=== PATIENT | male | born 1955 | race Caucasian/White ===

== ENCOUNTER 2017-04-14 13:17 | Inpatient (IN) | payer MEDICAID, OTHER ==
[~2017-04-14] VITALS: Ht 188 cm; Wt 69.4 kg
[2017-04-14] VITALS (7 sets, daily range): BP systolic 118–142; BP diastolic 51–77; PULSE 74–115; RESP 16–22; TEMP 96.9–100.6; O2SAT 95–98
[~2017-04-14 13:17] MED LIST: DIPH25 PO; FLEX10TA PO; SERO200T2 PO
[2017-04-14] MEDS ORDERED: SODIUM CHLORIDE 0.9% FLUSH 10 ML FLUSH IVF PRN (14:00)
[2017-04-14] MEDS ORDERED: ONDANSETRON HCL 4 MG/2 ML VIAL IV PUSH ONE (14:00)
[2017-04-14] MEDS ORDERED: SODIUM CHLOR 0.9% 1000 ML INJ 1,000 ML IV ONE ×2 (14:00→16:00)
[2017-04-14] MEDS ORDERED: KETOROLAC TROMETHAMINE 30 MG/ML (IVP) VIAL IV PUSH ONE (14:15)
[2017-04-14 15:17] LABS: AUTOMATED NEUTROPHIL # 15.8 TH/MM3 (1.8-7.7); BASOPHIL # 0.1 TH/MM3 (0-0.2); BASOPHIL % 0.4 % (0.0-2.0); EOSINOPHIL % 0.1 % (0.0-4.0); HEMATOCRIT 40.1 % (39.0-51.0); HEMO FLAGS DIFF FINAL; LYMPH % 3.7 % (9.0-44.0); LYMPHOCYTE # 0.7 TH/MM3 (1.0-4.8); MEAN CELL VOLUME 95.8 FL (80.0-100.0); MEAN CORPUSCULAR HEMOGLOBIN 30.9 PG (27.0-34.0); MEAN CORPUSCULAR HGB CONC 32.2 % (32.0-36.0); MONO % 8.2 % (0.0-8.0); NEUT % 87.6 % (16.0-70.0); PLATELET COUNT 253 TH/MM3 (150-450); RED BLOOD COUNT 4.19 MIL/MM3 (4.50-5.90); RED CELL DISTRIBUTION WIDTH 13.1 % (11.6-17.2)
--- NOTE | 2017-04-14 15:17 | PD ---
HPI Chief Complaint: Flank/Kidney Pain Time Seen by Provider: 14:00 Travel History International Travel<30 days: No Contact w/Intl Traveler<30days: No Traveled to known affect area: No History of Present Illness HPI Patient is a 7-year-old male presenting to emergency for evaluation of left flank pain. Patient states it started about 24 hours ago, he states the pain is a 9 out of 10, and radiates around to his abdomen. He reports dysuria and a history of kidney stones. Patient denies any vomiting but states he's been nauseated. He has not taken anything to alleviate the pain, no exacerbating factors. PFSH Past Medical History Arthritis: No Asthma: Yes (IN CHILDHOOD) Bipolar Disorder: Yes Anxiety: Yes Depression: Yes Heart Rhythm Problems: No Cancer: No Cardiovascular Problems: No High Cholesterol: No Chest Pain: Yes Congestive Heart Failure: No COPD: No Cerebrovascular Accident: No Diabetes: No Diminished Hearing: No Endocrine: No GERD: Yes Genitourinary: No Headaches: Yes Hepatitis: No Hiatal Hernia: No Immune Disorder: No Kidney Stones: Yes Medical other: Yes (MARFAN'S SYNDROME) Neurologic: Yes (NUMBNESS AND TINGLING IN FEET) Reproductive: No Immunizations Current: No Migraines: Yes Renal Failure: Yes Seizures: No Sleep Apnea: No Thyroid Disease: No Ulcer: Yes Tetanus Vaccination: > 5 Years Influenza Vaccination: No Past Surgical History Abdominal Surgery: Yes (BOWEL RESECTION 18 YEARS AGO) AICD: No Arteriovenous Shunt: No Cardiac Surgery: No Ear Surgery: No Endocrine Surgery: No Eye Surgery: No Genitourinary Surgery: Yes (URETERAL STENTS, ESWL ) Gynecologic Surgery: No Insulin Pump: No Joint Replacement: No Neurologic Surgery: Yes (C7 FUSION) Oral Surgery: Yes (ALL TEETH REMOVED) Pacemaker: No Thoracic Surgery: No Tonsillectomy: Yes Social History Alcohol Use: No Tobacco Use: Yes (/2 PPD) Substance Use: No Allergies-Medications (Allergen,Severity, Reaction): Coded Allergies: Cipro (Verified Allergy, Severe, 04/14/17) Penicillin (Unverified Allergy, Severe, muscle weakness, 04/14/17) Demerol (Verified Adverse Reaction, Severe, Hallucinations, 04/14/17) Reported Meds & Prescriptions Reported Meds & Active Scripts Active No Active Prescriptions or Reported Medications Review of Systems Except as stated in HPI: all other systems reviewed are Neg HENT: No: Headaches Cardiovascular: No: Chest Pain or Discomfort Respiratory: No: Shortness of Breath Gastrointestinal: Positive: Nausea Genitourinary: Positive: Dysuria, Flank Pain Physical Exam Narrative GENERAL: Thin, well-developed, alert male. Appears uncomfortable, in no acute distress. SKIN: Warm and dry. HEAD: Atraumatic. Normocephalic. EYES: Pupils equal and round. No scleral icterus. No injection or drainage. ENT: No nasal bleeding or discharge. Mucous membranes pink and moist. NECK: Trachea midline. No JVD. CARDIOVASCULAR: Tachycardia,, no murmur noted. RESPIRATORY: No accessory muscle use. Clear to auscultation. Breath sounds equal bilaterally. GASTROINTESTINAL: Abdomen soft, left flank tenderness, nondistended. Hepatic and splenic margins not palpable. Positive bowel sounds, positive CVAT on the left MUSCULOSKELETAL: Extremities without clubbing, cyanosis, or edema. No obvious deformities. NEUROLOGICAL: Awake and alert. No obvious cranial nerve deficits. Motor grossly within normal limits. Five out of 5 muscle strength in the arms and legs. Normal speech. PSYCHIATRIC: Appropriate mood and affect; insight and judgment normal. Data Data Last Documented VS Vital Signs Date Time Temp Pulse Resp B/P Pulse Ox O2 Delivery O2 Flow Rate FiO2 04/14/17 16:06 20 04/14/17 16:01 100.1 100 142/67 98 Room Air Orders Complete Blood Count With Diff (04/14/17 13:59) Comprehensive Metabolic Panel (04/14/17 13:59) Ua Includes Microscopic (04/14/17 13:59) Iv Access Insert/Monitor (04/14/17 13:59) Sodium Chloride 0.9% Flush (Ns Flush) (04/14/17 14:00) Ondansetron Inj (Zofran Inj) (04/14/17 14:00) Sodium Chlor 0.9% 1000 Ml Inj (Ns 1000 M (04/14/17 14:00) Ketorolac Inj (Toradol Inj) (04/14/17 14:15) Ct Abd/Pel W/O Iv Contrast (04/14/17 ) Morphine Inj (Morphine Inj) (04/14/17 15:45) Ceftriaxone Inj (Rocephin Inj) (04/14/17 15:45) Sodium Chlor 0.9% 1000 Ml Inj (Ns 1000 M (04/14/17 16:00) Acetaminophen (Tylenol) (04/14/17 16:00) Sodium Chlor 0.9% 1000 Ml Inj (Ns 1000 M (04/14/17 18:15) Lactic Acid Sepsis Protocol (04/14/17 18:02) Blood Culture (04/14/17 18:02) Lactic Acid (04/14/17 18:03) Admit Order (Ed Use Only) (04/14/17 18:03) Labs Laboratory Tests Test 04/14/17 14:55 White Blood Count 18.0 TH/MM3 Red Blood Count 4.19 MIL/MM3 Hemoglobin 12.9 GM/DL Hematocrit 40.1 % Mean Corpuscular Volume 95.8 FL Mean Corpuscular Hemoglobin 30.9 PG Mean Corpuscular Hemoglobin 32.2 % Concent Red Cell Distribution Width 13.1 % Platelet Count 253 TH/MM3 Mean Platelet Volume 8.4 FL Neutrophils (%) (Auto) 87.6 % Lymphocytes (%) (Auto) 3.7 % Monocytes (%) (Auto) 8.2 % Eosinophils (%) (Auto) 0.1 % Basophils (%) (Auto) 0.4 % Neutrophils # (Auto) 15.8 TH/MM3 Lymphocytes # (Auto) 0.7 TH/MM3 Monocytes # (Auto) 1.5 TH/MM3 Eosinophils # (Auto) 0.0 TH/MM3 Basophils # (Auto) 0.1 TH/MM3 CBC Comment DIFF FINAL Differential Comment Urine Color YELLOW Urine Turbidity CLOUDY Urine pH 6.0 Urine Specific [place] 1.035 Urine Protein 300 mg/dL Urine Glucose (UA) NEG mg/dL Urine Ketones TRACE mg/dL Urine Occult Blood LARGE Urine Nitrite POS Urine Bilirubin NEG Urine Urobilinogen LESS THAN 2.0 MG/DL Urine Leukocyte Esterase LARGE Urine RBC /hpf Urine WBC /hpf Urine WBC Clumps OCC Urine Bacteria FEW /hpf Microscopic Urinalysis Comment Sodium Level 133 MEQ/L Potassium Level 4.2 MEQ/L Chloride Level 101 MEQ/L Carbon Dioxide Level 21.0 MEQ/L Anion Gap 11 MEQ/L Blood Urea Nitrogen 21 MG/DL Creatinine 2.01 MG/DL Estimat Glomerular Filtration 34 ML/MIN Rate Random Glucose 83 MG/DL Calcium Level 8.9 MG/DL Total Bilirubin 0.6 MG/DL Aspartate Amino Transf 17 U/L (AST/SGOT) Alanine Aminotransferase 12 U/L (ALT/SGPT) Alkaline Phosphatase 56 U/L Total Protein 7.4 GM/DL Albumin 3.6 GM/DL MDM Medical Decision Making Medical Screen Exam Complete: Yes Emergency Medical Condition: Yes Medical Record Reviewed: Yes Interpretation(s) Laboratory Tests Test 04/14/17 14:55 White Blood Count 18.0 TH/MM3 Red Blood Count 4.19 MIL/MM3 Hemoglobin 12.9 GM/DL Hematocrit 40.1 % Mean Corpuscular Volume 95.8 FL Mean Corpuscular Hemoglobin 30.9 PG Mean Corpuscular Hemoglobin 32.2 % Concent Red Cell Distribution Width 13.1 % Platelet Count 253 TH/MM3 Mean Platelet Volume 8.4 FL Neutrophils (%) (Auto) 87.6 % Lymphocytes (%) (Auto) 3.7 % Monocytes (%) (Auto) 8.2 % Eosinophils (%) (Auto) 0.1 % Basophils (%) (Auto) 0.4 % Neutrophils # (Auto) 15.8 TH/MM3 Lymphocytes # (Auto) 0.7 TH/MM3 Monocytes # (Auto) 1.5 TH/MM3 Eosinophils # (Auto) 0.0 TH/MM3 Basophils # (Auto) 0.1 TH/MM3 CBC Comment DIFF FINAL Differential Comment Urine Color YELLOW Urine Turbidity CLOUDY Urine pH 6.0 Urine Specific [place] 1.035 Urine Protein 300 mg/dL Urine Glucose (UA) NEG mg/dL Urine Ketones TRACE mg/dL Urine Occult Blood LARGE Urine Nitrite POS Urine Bilirubin NEG Urine Urobilinogen LESS THAN 2.0 MG/DL Urine Leukocyte Esterase LARGE Urine RBC /hpf Urine WBC /hpf Urine WBC Clumps OCC Urine Bacteria FEW /hpf Microscopic Urinalysis Comment Sodium Level 133 MEQ/L Potassium Level 4.2 MEQ/L Chloride Level 101 MEQ/L Carbon Dioxide Level 21.0 MEQ/L Anion Gap 11 MEQ/L Blood Urea Nitrogen 21 MG/DL Creatinine 2.01 MG/DL Estimat Glomerular Filtration 34 ML/MIN Rate Random Glucose 83 MG/DL Calcium Level 8.9 MG/DL Total Bilirubin 0.6 MG/DL Aspartate Amino Transf 17 U/L (AST/SGOT) Alanine Aminotransferase 12 U/L (ALT/SGPT) Alkaline Phosphatase 56 U/L Total Protein 7.4 GM/DL Albumin 3.6 GM/DL Vital Signs Date Time Temp Pulse Resp B/P Pulse Ox O2 Delivery O2 Flow Rate FiO2 7/14/17 13:26 100.6 115 20 128/63 98 Room Air 04/14/17 13:24 98.0 109 16 131/77 96 Differential Diagnosis UTI versus kidney stone versus pyelonephritis versus musculoskeletal pain versus diverticulitis versus obstruction versus other Narrative Course Patient is a 61-year-old male that presented to the emergency room evaluation of left flank pain and dysuria for one day. Patient was mildly tachycardic with a low-grade temp on arrival. Labs and imaging ordered and pending. CBC with a white count of 18 with left shift. Chemistry with elevated BUN and creatinine, creatinine is slightly higher than previous values recorded. Urinalysis shows nitrate positive urinary tract infection. Patient given IV fluids, Rocephin, Toradol, Zofran. The CT scan of the abdomen and pelvis pending Ct scan read by radiologist shows atrophy of the left kidney with hydronephrosis and hydroureter secondary to tandem stones w/i the left ureter measuring 3 and 4 mm. right non obstructing renal calculi, suspected high grade stenosis of the left common femoral artery. Pt admitted, Dr. Taylor accepted admit. Lactic acid ordered. Pt responded to IVF resuscitation. Pt informed of care plan, he is agreeable. He reports feeling better after acetaminophen and pain medication. Sepsis Criteria SIRS Criteria (2 or more): Heart rate over 90, WBC > 36133, < 4000 or > 10% bands Sepsis Criteria (SIRS+source): Infect source susp/known Severe Sepsis (+one): Organ Dysfunction, Acute Oliguria/Renal Failure Diagnosis Primary Impression: Sepsis Qualified Code: A41.9 - Sepsis, due to unspecified organism Additional Impression: Hydronephrosis Qualified Code: N13.2 - Hydronephrosis with urinary obstruction due to renal calculus Admitting Information Admitting Physician Requests: Admit Scripts No Active Prescriptions or Reported Meds Condition: Stable Basia Casey Apr 14, 2017 15:17
[2017-04-14 15:33] LABS: BACTERIA, URINE FEW /hpf; BLOOD, URINE LARGE (NEG); GLUCOSE,URINE NEG (NEG); KETONE, URINE TRACE mg/dL (NEG); URINE COLOR YELLOW (YELLW/STRAW)
[2017-04-14 15:39] LABS: ANION GAP 11 MEQ/L (5-15); AST (GOT) 17 U/L (15-37); BLOOD UREA NITROGEN 21 MG/DL (7-18); CHLORIDE 101 MEQ/L (98-107); GLOMERULAR FILTRATION RATE 34 ML/MIN (>89); POTASSIUM 4.2 MEQ/L (3.5-5.1); SODIUM (NA) 133 MEQ/L (136-145)
[2017-04-14 15:40] LABS: NITRITE,URINE POS (NEG)
[2017-04-14 15:43] LABS: ALKALINE PHOSPHATASE 56 U/L (45-117); ALT (GPT) 12 U/L (12-78); TOTAL BILIRUBIN ADULT 0.6 MG/DL (0.2-1.0)
[2017-04-14] MEDS ORDERED: cefTRIAXone INJ 2,000 MG in SODIUM CHLORIDE 0.9% INJ 100 ML IV ONE (15:45)
[2017-04-14] MEDS ORDERED: MORPHINE SULFATE 8 MG/ML INJ IV PUSH ONE (15:45)
[2017-04-14] MEDS ORDERED: ACETAMINOPHEN 325 MG TAB PO ONE (16:00)
--- NOTE | 2017-04-14 17:34 | RADRPT ---
EXAM DATE/TIME: 04/14/2017 16:55 [facility] COMPARISON: CT ABDOMEN & PELVIS W/O CONTRAST, December 20, 2012, 19:14. INDICATIONS : Left flank pain along with painful urination for one day. ORAL CONTRAST: No oral contrast ingested. RADIATION DOSE: 9.66 CTDIvol (mGy) MEDICAL HISTORY : Renal failure, chronic. Renal calculi. SURGICAL HISTORY : Colostomy. ENCOUNTER: Initial ACUITY: 1 day PAIN SCALE: 8/10 LOCATION: Left flank TECHNIQUE: Volumetric scanning of the abdomen and pelvis was performed. Using automated exposure control and ad justment of the mA and/or kV according to patient size, radiation dose was kept as low as reasonably achievable to obtain optimal diagnostic quality images. DICOM format image data is available electro nically for review and comparison. FINDINGS: LOWER LUNGS: Linear atelectasis within the right lung base. Left lung base is clear. Emphysematous changes noted. LIVER: Homogeneous density without lesion. There is no dilation of the biliary tree. No calcified gallston es. SPLEEN: Normal size without lesion. PANCREAS: Within normal limits. KIDNEYS: The left kidney is atrophic. Hydronephrosis and hydroureter is seen on the left. This may be chronic in nature. 2 left-sided ureteral stones noted. Distally this measures 4 mm and is just distal to the crossing of the iliac vessels. Proximally the stone measures 3 mm and is just inferior to the UPJ. Nu merous 2-5 mm renal stones are seen involving the right kidney. No hydronephrosis or hydroureter on t hat side. No perinephric fluid collections. ADRENAL GLANDS: Within normal limits. VASCULAR: Diffuse atherosclerotic plaque throughout the aorta and inflow vessels. A high grade stenosis is susp ected involving the left common femoral artery. BOWEL/MESENTERY: The stomach, small bowel, and colon demonstrate no acute abnormality. There is no free intraperitone al air or fluid. ABDOMINAL WALL: Within normal limits. RETROPERITONEUM: There is no lymphadenopathy. BLADDER: Mild circumferential wall thickening is long-term stable. No discrete mass. No dilatation of the urin izzy bladder. REPRODUCTIVE: Within normal limits. INGUINAL: A right inguinal hernia is seen containing loops of small bowel. No obstruction or incarceration. MUSCULOSKELETAL: Scoliotic and degenerative spine. CONCLUSION: 1. Atrophy of the left kidney with hydronephrosis and hydroureter secondary to tandem stones within t he left ureter measuring 3 mm and 4 mm respectively. 2. Numerous nonobstructing right renal calculi. 3. Right inguinal hernia containing small bowel. 4. Pronounced calcified atherosclerotic plaque with a suspected high-grade stenosis of the left commo n femoral artery. Jeremiah Nick Jr., MD on April 14, 2017 at 17:24 Board Certified Radiologist. This report was verified electronically.
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
[2017-04-14] MEDS ORDERED: NALOXONE HCL 0.4 MG/ML AMP IV PRN ×2 (18:30→19:00)
[2017-04-14] MEDS ORDERED: BISACODYL 10 MG SUPP RECTAL PRN (18:30)
[2017-04-14] MEDS ORDERED: SENNOSIDES 8.6 MG TAB PO PRN (18:30)
[2017-04-14] MEDS ORDERED: ONDANSETRON HCL 4 MG/2 ML VIAL IVP PRN (18:30)
[2017-04-14] MEDS ORDERED: ACETAMINOPHEN 325 MG TAB PO PRN ×2 (18:30→19:00)
[2017-04-14] MEDS ORDERED: MAGNESIUM HYDROXIDE SUSP 30 ML CUP PO PRN (18:30)
[2017-04-14] MEDS ORDERED: LACTULOSE SYRUP 20 GM/30 ML CUP PO PRN (18:30)
[2017-04-14] MEDS ORDERED: oxyCODONE/ACETAMINOPHEN 5 MG/325 MG TAB PO PRN (19:00)
[2017-04-14] MEDS ORDERED: PILL SPLITTER OTHER PRN (19:15)
[2017-04-14] MEDS: HEPARIN SODIUM - SQ 10,000 UNITS/ML VIAL SQ SCH (20:00)
[2017-04-14] MEDS: PANTOPRAZOLE SOD 40 MG DELAYED RELEASE TAB PO SCH (20:51)
[2017-04-14] MEDS: HYDROmorphone HCL 2 MG TAB PO PRN (20:51)
[2017-04-14] MEDS: DOCUSATE SODIUM 50 MG/SENNA 8.6 MG TAB PO SCH (20:51)
[2017-04-14] MEDS: SODIUM CHLOR 0.9% 1000 ML INJ 1,000 ML IV SCH (20:51)
[2017-04-15 00:18] VITALS: BP 116/58; PULSE 83; RESP 18; TEMP 98.6; O2SAT 93
[2017-04-15 04:20] VITALS: BP 115/58; PULSE 85; RESP 16; TEMP 99.3; O2SAT 96
[2017-04-15] MEDS: SODIUM CHLOR 0.9% 1000 ML INJ 1,000 ML IV SCH ×4 (04:32→21:26)
[2017-04-15] MEDS: HYDROmorphone HCL 2 MG TAB PO PRN ×3 (05:16→23:46)
[2017-04-15 08:00] VITALS: BP 115/58; PULSE 90; RESP 17; TEMP 99.3; O2SAT 94
[2017-04-15] MEDS: HEPARIN SODIUM - SQ 10,000 UNITS/ML VIAL SQ SCH ×2 (08:00→20:00)
[2017-04-15] MEDS: PANTOPRAZOLE SOD 40 MG DELAYED RELEASE TAB PO SCH (08:29)
[2017-04-15] MEDS: DOCUSATE SODIUM 50 MG/SENNA 8.6 MG TAB PO SCH ×2 (08:29→21:25)
--- NOTE | 2017-04-15 09:16 | HHI.PR ---
Subjective Remarks f/u UTI afebrile, still with left flank pain, dysuria, frequency and dark urine, no diarrhea, less pain, better with narcotics. Objective Vitals Vital Signs Date Time Temp Pulse Resp B/P Pulse Ox O2 Delivery O2 Flow Rate FiO2 04/15/17 08:00 99.3 90 17 115/58 94 04/15/17 04:20 99.3 85 16 115/58 96 04/15/17 00:18 98.6 83 18 116/58 93 04/14/17 21:56 96.9 85 16 131/70 95 04/14/17 20:52 78 18 118/73 98 Room Air 04/14/17 19:12 98.1 86 18 120/68 95 Room Air 04/14/17 18:29 97.9 74 22 137/51 98 Room Air 04/14/17 16:06 20 04/14/17 16:01 20 04/14/17 16:01 100.1 100 20 142/67 98 Room Air 04/14/17 13:26 100.6 115 20 128/63 98 Room Air 04/14/17 13:24 98.0 109 16 131/77 96 I/O 04/14/17 04/14/17 04/14/17 04/15/17 04/15/17 04/15/17 07:00 15:00 23:00 07:00 15:00 23:00 Intake Total 1200 ml 1480 ml Output Total 380 ml Balance 1200 ml 1100 ml Intake Oral 280 ml IV Total 1200 ml 1200 ml Output Urine Total 380 ml Result Diagram: 04/14/17 1455 04/14/17 1455 Objective Remarks Not in distress, well-nourished, looks stated age PERRL, pink conjunctiva without injection, anicteric Normal rate and regular rhythm, no murmurs gallops or rubs appreciated. Clear to auscultation and symmetric bilaterally, normal respiratory effort. Normal bowel sounds, soft, non-tender, nondistended, no guarding. (+) CVA tenderness Extremities without clubbing, cyanosis, or edema. No rash of generalized distribution. Skin is warm and dry. AAO x3, no cranial nerve deficits, moves all 4 extremities, no focal neurologic deficits A/P Problem List: (1) Sepsis ICD Code: A41.9 Status: Acute (2) Acute kidney failure ICD Code: N17.9 Status: Acute (3) Hydronephrosis ICD Code: N13.30 Status: Acute Assessment and Plan Patient is a 61-year-old male with primary medical history of Marfan syndrome, neuropathy, kidney stones, urethral stent placements who came into the hospital for evaluation of left flank pain. Sepsis secondary to pyelonephritis- CT abdomen and pelvis showed atrophic left kidney with hydronephrosis and hydroureter with ureterolithiasis about 3 mm. There is also numerous nonobstructing right renal calculi. Urology consulted, awaiting input. Lactic acid is normal, follow-up urine culture and blood culture. Continue ceftriaxone, IVF at 1 50 cc per hour. Lab work for today pending, recheck CBC and BMP tomorrow. Acute kidney failure - Based on review of records baseline most probably 1.4-1.6. Admitted four years ago with kidney failure [employer] 12.76, continue IVF, will consult nephrology for improvement, awaiting BMP today. DVT prop heparin Discharge Planning Discharged Monday or Monday Problem Qualifiers (1) Sepsis: Qualified Code: A41.9 - Sepsis, due to unspecified organism (2) Hydronephrosis: Qualified Code: N13.2 - Hydronephrosis with urinary obstruction due to renal calculus Lita Taylor MD Apr 15, 2017 09:16
[2017-04-15 12:00] VITALS: BP 130/106; PULSE 105; RESP 19; TEMP 97.9; O2SAT 95
[2017-04-15 12:26] LABS: AUTOMATED NEUTROPHIL # 10.7 TH/MM3 (1.8-7.7); BASOPHIL % 0.3 % (0.0-2.0); EOSINOPHIL # 0.1 TH/MM3 (0-0.4); EOSINOPHIL % 0.5 % (0.0-4.0); HEMATOCRIT 30.3 % (39.0-51.0); HEMO FLAGS DIFF FINAL; LYMPH % 3.5 % (9.0-44.0); LYMPHOCYTE # 0.4 TH/MM3 (1.0-4.8); MEAN CELL VOLUME 95.8 FL (80.0-100.0); MEAN CORPUSCULAR HEMOGLOBIN 32.3 PG (27.0-34.0); MEAN CORPUSCULAR HGB CONC 33.8 % (32.0-36.0); MONO % 7.5 % (0.0-8.0); NEUT % 88.2 % (16.0-70.0); PLATELET COUNT 185 TH/MM3 (150-450); RED BLOOD COUNT 3.16 MIL/MM3 (4.50-5.90); RED CELL DISTRIBUTION WIDTH 12.9 % (11.6-17.2); WHITE BLOOD COUNT 12.1 TH/MM3 (4.0-11.0)
[2017-04-15 13:01] LABS: ALKALINE PHOSPHATASE 48 U/L (45-117); ALT (GPT) 11 U/L (12-78); ANION GAP 10 MEQ/L (5-15); AST (GOT) 16 U/L (15-37); BICARBONATE 22.5 MEQ/L (21.0-32.0); BLOOD UREA NITROGEN 23 MG/DL (7-18); CHLORIDE 105 MEQ/L (98-107); GLOMERULAR FILTRATION RATE 37 ML/MIN (>89); SODIUM (NA) 137 MEQ/L (136-145); TOTAL BILIRUBIN ADULT 0.3 MG/DL (0.2-1.0)
[2017-04-15 16:00] VITALS: BP 115/60; PULSE 85; RESP 17; TEMP 100; O2SAT 94
[2017-04-15] MEDS: TAMSULOSIN HCL 0.4 MG CAP PO SCH (16:07)
[2017-04-15] MEDS: cefTRIAXone INJ 2,000 MG in SODIUM CHLORIDE 0.9% INJ 100 ML IV SCH (16:18)
--- NOTE | 2017-04-15 16:29 | MB ---
cc: EHSAN CARRASCO MD DATE OF CONSULTATION 04/15/2017 REASON FOR CONSULTATION 1. Left flank pain. 2. Left ureteral calculi. 3. Right renal calculi. 4. Urinary tract infection. HISTORY OF PRESENT ILLNESS The patient is a 61-year-old male with a longstanding history of kidney stones as well as history of Marfan syndrome who came to the hospital with acute onset of 10/10 left flank pain, sharp and stabbing in nature. It was worsened with movement and breathing. He felt like he had fevers and chills. He also had an episode of nausea but no vomiting. He states that this pain was similar to his kidney stone pain in the past. He also had dysuria and frequency. He had CT of abdomen and pelvis without contrast performed and was found to have an atrophic left kidney with mild hydroureter nephrosis with two separate 3 and 4 mm stones as well as multiple nonobstructing right renal calculi. He was also found to have a white count 18,000, creatinine of over 2 in which his baseline is around 1.6. He was subsequently admitted and started on antibiotics. Urology was consulted. Currently, the patient is feeling better. His pain is 3/10, however, he did receive IV Dilaudid which helped with the pain. He continues to have dysuria and frequency but denies any hematuria. He last saw Dr. Ibarra he thinks about 3 years ago. He thinks he has passed stones in the past. He has had surgery with laser lithotripsy and stents in the past but none within the last 3 years. Denies family history of genitourinary malignancies or family history of kidney stones. REVIEW OF SYSTEMS See HPI otherwise all systems reviewed are otherwise are negative. PAST MEDICAL HISTORY Positive for Marfan syndrome, GERD, kidney stones, anxiety, depression, chronic kidney disease, neuropathy. PAST SURGICAL HISTORY He has had a bowel resection, tonsillectomy, cystoscopy with laser lithotripsy and stent placements, C7 fusion. ALLERGIES CIPRO, PENICILLIN, DEMEROL. MEDICATIONS He denies any active home medications. FAMILY HISTORY Denies genitourinary malignancies. Some heart disease. SOCIAL HISTORY History of alcohol abuse but he quit 25 years ago. He has a 20-year pack per day smoker but quit 6 years ago. Has used marijuana in the past. PHYSICAL EXAMINATION VITAL SIGNS: Temperature 97.9, pulse 105, respiratory rate 19, blood pressure 131/69, sat 97% on room air. GENERAL: He is alert and oriented x3. No apparent distress, pleasant cooperative gentleman, appears his stated. HEENT: Head is normocephalic, atraumatic. NECK: Supple. Trachea is midline. SKIN: No ulcers or rashes. Mucous membranes pink and moist. LUNGS: Clear to auscultation bilaterally. No wheezes, rales or rhonchi. HEART: Regular rhythm. No murmurs, gallops, rubs. ABDOMEN: Soft, nontender, nondistended. Positive bowel sounds. GENITOURINARY: No CVA tenderness bilaterally. Penis is circumcised. Testes are descended bilaterally, normal size and consistent. RECTAL EXAMINATION: Not indicated at this time. EXTREMITIES: Nontender. No clubbing, cyanosis or edema. NEUROLOGICAL: Cranial nerves II-XII intact. Strength 5/5 in all four extremities. PSYCH: Normal affect. LABORATORY DATA White count 12.1, hemoglobin 10.2, hematocrit 30.3, platelet count 185, sodium 137, potassium 4.0, chloride 105, bicarb 22.5, BUN 23, creatinine 1.85, lactic acid 1.7. His urine was positive nitrate, large leukocyte esterase and large blood. Cultures currently pending. IMAGING STUDIES CT abdomen and pelvis without contrast images reviewed, agree with radiologist's report. The patient has what appears to be a left atrophic kidney with chronic left hydroureter nephrosis with two small 3 mm stones in the ureter. The patient has multiple nonobstructing right renal stones. Also has a right inguinal hernia. ASSESSMENT The patient is a 61-year-old male with history of kidney stones, Marfan syndrome who was admitted with left flank pain and was found to have two stones in his distal ureter, 3 mm in size as well as urinary tract infection. PLAN 1. The patient is currently improving. Will recommend trial passage at this time. Will start the patient on Flomax 0.4 milligrams daily. Have him strain his urine and adjust his pain medication, add Percocet to his pain regimen. 2. It appears he does have atrophic left kidney due to thinning of the cortex, appears some of the hydronephrosis is likely chronic in nature. He had a Lasix renogram back in 2010 which showed only 15% function of that left kidney. I suspect that over the past 6 years that kidney function has continued to worsen. Recommend repeating a BMP in the morning to follow his kidney function as well as KUB but as long as his pain remains controlled with oral pain medication and his clinical picture does not worsen he can then be discharged home and follow up with Dr. Ibarra as an outpatient. Ehsan Carrasco MD EMBecca/MAAME /2:37 PM /4:04 PM
[2017-04-15] MEDS: oxyCODONE/ACETAMINOPHEN 10 MG/325 MG TAB PO PRN (19:26)
[2017-04-15 20:00] VITALS: BP 128/63; PULSE 87; RESP 20; TEMP 97.1; O2SAT 95
[2017-04-16] VITALS (8 sets, daily range): BP systolic 104–147; BP diastolic 54–77; PULSE 77–89; RESP 18–20; TEMP 96.7–99.4; O2SAT 93–98
[2017-04-16] MEDS: oxyCODONE/ACETAMINOPHEN 10 MG/325 MG TAB PO PRN (04:44)
[2017-04-16] MEDS: SODIUM CHLOR 0.9% 1000 ML INJ 1,000 ML IV SCH ×4 (04:45→21:10)
[2017-04-16 06:04] LABS: BICARBONATE 20.2 MEQ/L (21.0-32.0)
--- NOTE | 2017-04-16 06:36 | RADRPT ---
EXAM DATE/TIME: 04/16/2017 06:17 [facility] COMPARISON: CT ABDOMEN & PELVIS W/O CONTRAST, April 14, 2017, 16:55. INDICATIONS : Evaluate for renal calculi. MEDICAL HISTORY : Renal failure, chronic. SURGICAL HISTORY : Colostomy. ENCOUNTER: Subsequent ACUITY: 3 days PAIN SCORE: 7/10 LOCATION: Bilateral chest FINDINGS: Moderate dextroscoliosis of the lumbar spine with rotatory component. Nonobstructive bowel gas patter n. Numerous right-sided renal calculi are noted largest measures 4 mm at the mid pole. Left renal [place] cifications are also present. The left ureteral stone noted on the recent CT is not clearly visualize d. CONCLUSION: Bilateral renal calculi. Bari Amador MD on April 16, 2017 at 6:33 Board Certified Radiologist. This report was verified electronically.
[2017-04-16] MEDS: HEPARIN SODIUM - SQ 10,000 UNITS/ML VIAL SQ SCH ×2 (08:00→20:00)
[2017-04-16] MEDS: PANTOPRAZOLE SOD 40 MG DELAYED RELEASE TAB PO SCH (08:19)
[2017-04-16] MEDS: DOCUSATE SODIUM 50 MG/SENNA 8.6 MG TAB PO SCH ×2 (08:19→21:10)
[2017-04-16] MEDS: TAMSULOSIN HCL 0.4 MG CAP PO SCH (08:19)
--- NOTE | 2017-04-16 14:49 | HHI.PR ---
Subjective Remarks Follow-up for UTI and ureterolithiasis Urology saw the patient yesterday possible trial of passage of stone. Stone hasn't passed. Flank pain better, afebrile, no urinary symptoms at this point, no dysuria, frequency or urgency. Objective Vitals Vital Signs Date Time Temp Pulse Resp B/P Pulse Ox O2 Delivery O2 Flow Rate FiO2 04/16/17 12:00 96.7 79 18 123/58 93 04/16/17 12:00 96.7 79 18 123/58 93 04/16/17 08:00 97.7 89 18 122/57 94 04/16/17 04:00 99.4 89 19 122/61 96 04/16/17 00:03 97.7 80 20 104/54 93 04/15/17 20:00 97.1 87 20 128/63 95 04/15/17 16:00 100.0 85 17 115/60 94 I/O 04/15/17 04/15/17 04/15/17 04/16/17 04/16/17 04/16/17 07:00 15:00 23:00 07:00 15:00 23:00 Intake Total 1480 ml 1000 ml 1005 ml 1285 ml 1200 ml Output Total 380 ml 200 ml 350 ml Balance 1100 ml 1000 ml 805 ml 935 ml 1200 ml Intake Oral 280 ml 240 ml 240 ml 0 ml IV Total 1200 ml 1000 ml 765 ml 1045 ml 1200 ml Output Urine Total 380 ml 200 ml 350 ml # Bowel Movements 0 0 Result Diagram: 04/15/17 1203 04/16/17 0531 Objective Remarks Not in distress, well-nourished, looks stated age PERRL Normal rate and regular rhythm, no murmurs gallops or rubs appreciated. Clear to auscultation and symmetric bilaterally, normal respiratory effort. Normal bowel sounds, soft, non-tender, nondistended, no guarding. (+) CVA tenderness Extremities without clubbing, cyanosis, or edema. Inguinal hernia, reducible. Nontender. No rash of generalized distribution. Skin is warm and dry. AAO x3, no cranial nerve deficits, moves all 4 extremities, no focal neurologic deficits A/P Problem List: (1) Sepsis ICD Code: A41.9 Status: Acute (2) Acute kidney failure ICD Code: N17.9 Status: Acute (3) Hydronephrosis ICD Code: N13.30 Status: Acute Assessment and Plan Patient is a 61-year-old male with primary medical history of Marfan syndrome, neuropathy, kidney stones, urethral stent placements who came into the hospital for evaluation of left flank pain. Sepsis secondary to pyelonephritis- CT abdomen and pelvis showed atrophic left kidney with hydronephrosis and hydroureter with ureterolithiasis about 3 mm. There is also numerous nonobstructing right renal calculi. Urology consulted, trial of passage of stone, Flomax added. Lactic acid is normal, urine culture is still pending, blood culture is negative so far. Continue ceftriaxone, IVF at 150 cc per hour. Repeat CBC and BMP tomorrow. Acute kidney failure - Based on review of records baseline most probably 1.4-1.6. Admitted four years ago with kidney failure [employer] 12.76, continue IVF, nephrology agrees with current management. DVT prop heparin Discharge Planning Discharged Monday with urine culture is final Problem Qualifiers (1) Sepsis: Qualified Code: A41.9 - Sepsis, due to unspecified organism (2) Hydronephrosis: Qualified Code: N13.2 - Hydronephrosis with urinary obstruction due to renal calculus Lita Taylor MD Apr 16, 2017 14:49
[2017-04-16] MEDS: cefTRIAXone INJ 2,000 MG in SODIUM CHLORIDE 0.9% INJ 100 ML IV SCH (16:43)
[2017-04-16] MEDS: HYDROmorphone HCL 2 MG TAB PO PRN (21:20)
[2017-04-16] MEDS ORDERED: ALPRAZolam 0.25 MG TAB PO ONE (23:15)
[2017-04-17] VITALS (9 sets, daily range): BP systolic 131–161; BP diastolic 66–86; PULSE 66–82; RESP 18–20; TEMP 96.2–97.8; O2SAT 93–100
[2017-04-17] MEDS ORDERED: RESP: ALBUTEROL 2.5 MG/IPRATROPIUM 0.5 MG NEB (PRN) NEB (04:00)
[2017-04-17] MEDS: SODIUM CHLOR 0.9% 1000 ML INJ 1,000 ML IV SCH ×2 (05:59→16:37)
[2017-04-17 06:28] LABS: AUTOMATED NEUTROPHIL # 4.8 TH/MM3 (1.8-7.7); BASOPHIL % 0.7 % (0.0-2.0); EOSINOPHIL # 0.3 TH/MM3 (0-0.4); HEMATOCRIT 28.2 % (39.0-51.0); HEMO FLAGS DIFF FINAL; LYMPH % 10.7 % (9.0-44.0); LYMPHOCYTE # 0.7 TH/MM3 (1.0-4.8); MEAN CELL VOLUME 96.2 FL (80.0-100.0); MEAN CORPUSCULAR HEMOGLOBIN 32.2 PG (27.0-34.0); MEAN CORPUSCULAR HGB CONC 33.5 % (32.0-36.0); MONO % 10.4 % (0.0-8.0); NEUT % 74.2 % (16.0-70.0); PLATELET COUNT 183 TH/MM3 (150-450); RED BLOOD COUNT 2.93 MIL/MM3 (4.50-5.90); RED CELL DISTRIBUTION WIDTH 12.7 % (11.6-17.2); WHITE BLOOD COUNT 6.4 TH/MM3 (4.0-11.0)
[2017-04-17 06:51] LABS: BICARBONATE 18.1 MEQ/L (21.0-32.0)
[2017-04-17] MEDS: HEPARIN SODIUM - SQ 10,000 UNITS/ML VIAL SQ SCH ×2 (08:00→20:00)
[2017-04-17] MEDS: TAMSULOSIN HCL 0.4 MG CAP PO SCH (09:12)
[2017-04-17] MEDS: PANTOPRAZOLE SOD 40 MG DELAYED RELEASE TAB PO SCH (09:12)
[2017-04-17] MEDS: DOCUSATE SODIUM 50 MG/SENNA 8.6 MG TAB PO SCH ×2 (09:12→21:06)
[2017-04-17] MEDS: oxyCODONE/ACETAMINOPHEN 10 MG/325 MG TAB PO PRN ×3 (09:13→21:06)
--- NOTE | 2017-04-17 10:25 | HHI.PR ---
Subjective Remarks Follow-up for pyelonephritis Patient denied any pain. He remains afebrile. Patient stated that he had episode of panic attack last night that resolved. He had no other concerns. Objective Vitals Vital Signs Date Time Temp Pulse Resp B/P Pulse Ox O2 Delivery O2 Flow Rate FiO2 04/17/17 08:00 97.8 82 18 152/74 95 04/17/17 04:30 96 21 04/17/17 04:00 96.7 81 20 161/78 98 04/17/17 03:38 100 21 04/17/17 00:00 96.7 72 20 160/86 95 04/16/17 20:00 98.8 82 20 109/77 97 04/16/17 18:27 147/66 04/16/17 16:00 98.0 77 18 147/66 98 04/16/17 16:00 98.0 77 18 147/66 98 04/16/17 14:00 98.0 77 18 147/66 98 04/16/17 14:00 98.0 77 18 147/66 98 04/16/17 12:00 96.7 79 18 123/58 93 04/16/17 12:00 96.7 79 18 123/58 93 I/O 04/16/17 04/16/17 04/16/17 04/17/17 04/17/17 04/17/17 07:00 15:00 23:00 07:00 15:00 23:00 Intake Total 1285 ml 1200 ml 1440 ml 240 ml Output Total 350 ml 800 ml 900 ml Balance 935 ml 400 ml 1440 ml -660 ml Intake Oral 240 ml 0 ml 240 ml 240 ml IV Total 1045 ml 1200 ml 1200 ml Output Urine Total 350 ml 800 ml 900 ml # Voids 2 # Bowel Movements 0 2 Result Diagram: 04/17/17 0604/17/17 06 Objective Remarks GENERAL: in nad CARDIOVASCULAR: Regular rate and rhythm without murmurs, gallops, or rubs. RESPIRATORY: Breath sounds equal bilaterally. No accessory muscle use. GASTROINTESTINAL: Abdomen soft, non-tender, nondistended. MUSCULOSKELETAL: No cyanosis, or edema. BACK: Nontender without obvious deformity. No CVA tenderness. Medications and IVs Current Medications Sodium Chloride (NS Flush) 2 ml UNSCH PRN IVF FLUSH AFTER USING IV ACCESS; Start 04/14/17 at 14:00 Ondansetron HCl 4 mg 4 mg ONCE ONCE IV PUSH Last administered on 04/14/17 15: 01; Start 04/14/17 at 14:00; Stop 04/14/17 at 14:02; Status DC Sodium Chloride (NS 1000 ml Inj) 1,000 ml @ 999 mls/hr BOLUS ONCE IV Last administered on 04/14/17 15:01; Start 04/14/17 at 14:00; Stop 04/14/17 at 15:00 ; Status DC Ketorolac Tromethamine (Toradol Inj) 30 mg ONCE ONCE IV PUSH Last administered on 04/14/17 15:01; Start 04/14/17 at 14:15; Stop 04/14/17 at 14:16 ; Status DC Morphine Sulfate 8 mg 8 mg ONCE ONCE IV PUSH Last administered on 04/14/17 16 :01; Start 04/14/17 at 15:45; Stop 04/14/17 at 15:46; Status DC Ceftriaxone Sodium 2000 mg/ Sodium Chloride 100 ml @ 200 mls/hr ONCE ONCE IV Last administered on 04/14/17 16:01; Start 04/14/17 at 15:45; Stop 04/14/17 at 16:14; Status DC Sodium Chloride (NS 1000 ml Inj) 1,000 ml @ 999 mls/hr BOLUS ONCE IV Last administered on 04/14/17 16:01; Start 04/14/17 at 16:00; Stop 04/14/17 at 17:00 ; Status DC Acetaminophen 650 mg 650 mg ONCE ONCE PO Last administered on 04/14/17 16:01 ; Start 04/14/17 at 16:00; Stop 04/14/17 at 16:01; Status DC Sodium Chloride (NS 1000 ml Inj) 1,000 ml @ 150 mls/hr Q6H40M IV Last administered on 04/17/17 05:59; Start 04/14/17 at 20:00 Acetaminophen (Tylenol) 650 mg Q4H PRN PO TEMP > 100.4; Start 04/14/17 at 18:30 Ondansetron HCl (Zofran Inj) 4 mg Q6H PRN IVP NAUSEA OR VOMITING Last administered on 04/15/17 01:37; Start 04/14/17 at 18:30 Heparin Sodium (Porcine) (Heparin Inj) 5,000 units Q12H SQ ; Start 04/14/17 at 20:00 Naloxone HCl (Narcan Inj) 0.4 mg UNSCH PRN IV SEE LABEL COMMENTS; Start at 18:30; Stop 04/14/17 at 18:59; Status DC Senna/Docusate Sodium (Ritika-Colace) 1 tab BID PO Last administered on 09:12; Start 04/14/17 at 21:00 Magnesium Hydroxide (Milk Of Magnesia Liq) 30 ml Q12H PRN PO MILD - MODERATE CONSTIPATION; Start 04/14/17 at 18:30 Sennosides (Senokot) 17.2 mg Q12H PRN PO MODERATE - SEVERE CONSTIPATION; Start 04/14/17 at 18:30 Bisacodyl (Dulcolax Supp) 10 mg DAILY PRN RECTAL SEVERE CONSITIPATION; Start at 18:30 Lactulose 30 ml 30 ml DAILY PRN PO SEVERE CONSITIPATION; Start 04/14/17 at 18: 30 Ceftriaxone Sodium/Sodium Chloride (Rocephin Inj/NS Inj) 100 ml @ 200 mls/hr Q24H IV Last administered on 04/16/17 16:43; Start 04/15/17 at 16:00 Pantoprazole Sodium (Protonix) 40 mg DAILY PO Last administered on 04/17/17 09 :12; Start 04/14/17 at 20:00 Acetaminophen (Tylenol) 650 mg Q6H PRN PO PAIN SCALE 3 TO 5; Start 04/14/17 at 19:00 Oxycodone/ Acetaminophen (Percocet 5-325 Mg) 1 tab Q6H PRN PO PAIN SCALE 3 TO 5; Start 04/14/17 at 19:00; Stop 04/15/17 at 14:30; Status DC Hydromorphone HCl (Dilaudid) 1 mg Q4H PRN PO BREAKTHROUGH PAIN Last administered on 04/16/17 21:20; Start 04/14/17 at 19:00 Naloxone HCl (Narcan Inj) 0.4 mg UNSCH PRN IV SEE LABEL COMMENTS; Start at 19:00 Miscellaneous (Pill Splitter) 1 ea UNSCH PRN OTHER SEE LABEL COMMENTS; Start at 19:15 Tamsulosin HCl (Flomax) 0.4 mg DAILY PO Last administered on 04/17/17 09:12; Start 04/15/17 at 14:30 Oxycodone/ Acetaminophen (Percocet 10-325 Mg) 1 tab Q4H PRN PO PAIN SCALE 6 TO 10 Last administered on 04/17/17 09:13; Start 04/15/17 at 14:30 Alprazolam (Xanax) 0.25 mg ONCE ONCE PO Last administered on 04/16/17 23:12; Start 04/16/17 at 23:15; Stop 04/16/17 at 23:16; Status DC Albuterol/ Ipratropium (Duoneb Neb) 1 ampule Q2HR NEB PRN NEB wheezing Last administered on 04/17/17 04:27; Start 04/17/17 at 04:00 A/P Problem List: (1) Sepsis ICD Code: A41.9 Status: Acute (2) Acute kidney failure ICD Code: N17.9 Status: Acute (3) Hydronephrosis ICD Code: N13.30 Status: Acute Assessment and Plan Patient is a 61-year-old male with primary medical history of Marfan syndrome, neuropathy, kidney stones, urethral stent placements who came into the hospital for evaluation of left flank pain. Sepsis secondary to pyelonephritis - CT abdomen and pelvis showed atrophic left kidney with hydronephrosis and hydroureter with ureterolithiasis about 3 mm. There is also numerous nonobstructing right renal calculi. Urology consulted, trial of passage of stone -on Flomax. Lactic acid is normal. Continue ceftriaxone, IVF at 150 cc per hour. -Urine culture grew gram-negative rods pending final sensitivity. -Continue Rocephin. Acute kidney failure - Based on review of records baseline most probably 1.4-1.6. Admitted four years ago with kidney failure [employer] 12.76, continue IVF, nephrology agrees with current management. -Patient back at baseline. DVT prop heparin Discharge Planning Pending final urine cultures before discharge. Problem Qualifiers (1) Sepsis: Qualified Code: A41.9 - Sepsis, due to unspecified organism (2) Hydronephrosis: Qualified Code: N13.2 - Hydronephrosis with urinary obstruction due to renal calculus Val Suarez MD Apr 17, 2017 10:24
[2017-04-17] MEDS: cefTRIAXone INJ 2,000 MG in SODIUM CHLORIDE 0.9% INJ 100 ML IV SCH (16:37)
[2017-04-18] VITALS: BP 153/80; PULSE 73; RESP 20; TEMP 96.6; O2SAT 94
[2017-04-18] MEDS: oxyCODONE/ACETAMINOPHEN 10 MG/325 MG TAB PO PRN ×3 (01:06→08:59)
[2017-04-18 04:00] VITALS: BP 172/87; PULSE 73; RESP 20; TEMP 96.6; O2SAT 94
[2017-04-18] MEDS: SODIUM CHLOR 0.9% 1000 ML INJ 1,000 ML IV SCH ×2 (04:00→08:55)
[2017-04-18 07:06] LABS: HEMATOCRIT 28.9 % (39.0-51.0); MEAN CELL VOLUME 96.7 FL (80.0-100.0); MEAN CORPUSCULAR HEMOGLOBIN 32.9 PG (27.0-34.0); PLATELET COUNT 204 TH/MM3 (150-450); RED BLOOD COUNT 2.99 MIL/MM3 (4.50-5.90); REVIEW FLAG FINAL; WHITE BLOOD COUNT 5.5 TH/MM3 (4.0-11.0)
[2017-04-18 07:36] LABS: BICARBONATE 19.7 MEQ/L (21.0-32.0); POTASSIUM 4.5 MEQ/L (3.5-5.1)
[2017-04-18 08:00] VITALS: BP 166/80; PULSE 78; RESP 18; TEMP 95.7; O2SAT 95
[2017-04-18] MEDS: HEPARIN SODIUM - SQ 10,000 UNITS/ML VIAL SQ SCH (08:00)
[2017-04-18] MEDS: DOCUSATE SODIUM 50 MG/SENNA 8.6 MG TAB PO SCH (08:55)
[2017-04-18] MEDS: PANTOPRAZOLE SOD 40 MG DELAYED RELEASE TAB PO SCH (08:55)
[2017-04-18] MEDS: TAMSULOSIN HCL 0.4 MG CAP PO SCH (08:55)
[2017-04-18] MEDS ORDERED: OXYC1TAB36 PO (09:57)
[2017-04-18] MEDS ORDERED: CIPR-9 PO (10:12)
--- NOTE | 2017-04-18 10:42 | HHI.DS ---
Discharge Summary Admission Date Apr 14, 2017 at 18:05 Discharge Date: Apr 18, 2017 Admitting Diagnosis Sepsis secondary to pyelonephritis Acute kidney failure Kidney stone (1) Sepsis ICD Code: A41.9 (2) Acute kidney failure ICD Code: N17.9 (3) Hydronephrosis ICD Code: N13.30 (4) Pyelonephritis ICD Code: N12 (5) Kidney stones ICD Code: N20.0 (6) Atrophy of left kidney ICD Code: N26.1 Procedures None Brief History - From Admission Patient is a 61-year-old male with primary medical history of Marfan syndrome, neuropathy, kidney stones, urethral stent placements who came into the hospital for evaluation of left flank pain. Patient states that the pain started yesterday, dull achy occasionally sharp, on his left flank area, radiating towards the abdomen, aggravated by breathing, movement. He did not take his temperature but feels hot last night and by chills. He reports nausea but no vomiting. He reports dysuria and history of kidney stones including urethral stents placement and removal. He used to see Dr. Ibarra. Patient reports feeling "raw." Denies SOB/ dyspnea. Denies chest pain, palpitations, headaches, dizziness. CBC/BMP: 04/18/17 0530 04/18/17 0530 Significant Findings Laboratory Tests Test 04/15/17 04/16/17 04/17/17 04/18/17 12:03 05:31 06:05 05:30 White Blood Count 12.1 TH/MM3 (4.0-11.0) Red Blood Count 3.16 MIL/MM3 2.93 MIL/MM3 2.99 MIL/MM3 (4.50-5.90) (4.50-5.90) (4.50-5.90) Hemoglobin 10.2 GM/DL 9.4 GM/DL 9.8 GM/DL (13.0-17.0) (13.0-17.0) (13.0-17.0) Hematocrit 30.3 % 28.2 % 28.9 % (39.0-51.0) (39.0-51.0) (39.0-51.0) Neutrophils (%) (Auto) 88.2 % 74.2 % (16.0-70.0) (16.0-70.0) Lymphocytes (%) (Auto) 3.5 % (9.0-44.0) Neutrophils # (Auto) 10.7 TH/MM3 (1.8-7.7) Lymphocytes # (Auto) 0.4 TH/MM3 0.7 TH/MM3 (1.0-4.8) (1.0-4.8) Blood Urea Nitrogen 23 MG/DL (7-18) 22 MG/DL (7-18) Creatinine 1.85 MG/DL 1.66 MG/DL 1.40 MG/DL 1.45 MG/DL (0.60-1.30) (0.60-1.30) (0.60-1.30) (0.60-1.30) Estimat Glomerular Filtration 37 ML/MIN (>89) 42 ML/MIN (>89) 52 ML/MIN (>89) 50 ML/MIN (>89) Rate Calcium Level 7.8 MG/DL 7.6 MG/DL 8.4 MG/DL 8.1 MG/DL (8.5-10.1) (8.5-10.1) (8.5-10.1) (8.5-10.1) Alanine Aminotransferase 11 U/L (12-78) (ALT/SGPT) Total Protein 5.7 GM/DL (6.4-8.2) Albumin 2.7 GM/DL (3.4-5.0) Chloride Level 108 MEQ/L 112 MEQ/L 115 MEQ/L (98-107) (98-107) (98-107) Carbon Dioxide Level 20.2 MEQ/L 18.1 MEQ/L 19.7 MEQ/L (21.0-32.0) (21.0-32.0) (21.0-32.0) Monocytes (%) (Auto) 10.4 % (0.0-8.0) Imaging Last Impressions Abdomen X-Ray 04/16/17 0600 Signed Impressions: Service Date/Time: Sunday, April 16, 2017 06:17 - CONCLUSION: Bilateral renal calculi. Bari Amador MD Abdomen/Pelvis CT 04/14/17 0000 Signed Impressions: Service Date/Time: Friday, April 14, 2017 16:55 - CONCLUSION: 1. Atrophy of the left kidney with hydronephrosis and hydroureter secondary to tandem stones within the left ureter measuring 3 mm and 4 mm respectively. 2. Numerous nonobstructing right renal calculi. 3. Right inguinal hernia containing small bowel. 4. Pronounced calcified atherosclerotic plaque with a suspected high-grade stenosis of the left common femoral artery. Jeremiah Nick Jr., MD PE at Discharge GENERAL: Thin appearing older than stated age male, in nad. Awake and alert. Sitting up in hospital bed eating breakfast. CARDIOVASCULAR: Regular rate and rhythm without murmurs, gallops, or rubs. RESPIRATORY: Breath sounds equal bilaterally. No accessory muscle use. GASTROINTESTINAL: Abdomen soft, non-tender, nondistended. (+)BS x 4 quadrants. MUSCULOSKELETAL: No cyanosis, or edema. BACK: Nontender without obvious deformity. No CVA tenderness. Pt update on day of discharge Patient feeling well. Denies any complaints of pain. Reports uneventful night. No acute issues. Hospital Course Patient admitted with sepsis secondary to pyelonephritis. Leukocytosis present with a white count of 18.0. Lactic acid was normal. Patient was started on IV ceftriaxone and IV fluids.. CT of the abdomen revealed atrophy of the left kidney with hydronephrosis and hydroureter secondary to tandem stones within the left ureter measuring 3 mm as well as numerous nonobstructing right renal calculi noted. Urology was consulted and patient was seen by Dr. Torres who recommended trial passage and initiation of Flomax 0.4 mg daily and follow up with Dr. Ibarra as outpatient. Per Urology's note, patient with atrophic left kidney due to thinning of the cortex and that some of the hydronephrosis likely chronic in nature. Patient also found to be in acute kidney failure with creatinine level of 2.01. Treated with IV hydration and avoidance of nephrotoxic agents. Patients symptoms improved dramatically. BMP was trended which showed improvement of the creatinine level prior to discharge. Blood cultures failed to show any growth in 3 days. White count returned to normal. Urine culture came back positive for Escherichia coli which was pansensitive and patient was started on Cipro by mouth a discharge. Patient was discharged in satisfactory condition to home. He was instructed to follow-up as outpatient with Dr. Ibarra Urology as well as with PCP. Pt Condition on Discharge: Good Discharge Disposition: Discharge Home Discharge Time: > 30 minutes Discharge Instructions DIET: Follow Instructions for: Heart Healthy Diet Activities you can perform: Regular-No Restrictions Follow up Referrals: PCP Follow-up with Kaitlin Ndiaye Jr., MD Urology - 1 Week with Kelton Ibarra MD New Medications: Doxycycline Hyclate (Doxycycline Hyclate) 100 Mg Cap 100 MG PO BID Infection #20 Ref 0 CAP Oxycodone-Acetaminophen (Oxycodone-Acetaminophen) 10-325 mg Tab 1 TAB PO Q4H PRN moderate and severe pain #20 Ref 0 TAB Tamsulosin (Flomax) 0.4 Mg Cap 0.4 MG PO DAILY Urinary retention #30 CAP Additional Information The exam, history, and the medical decision-making described in the above note were completed with the assistance of the mid-level provider. I reviewed and agree with the findings presented. I attest that I had a [id number] encounter with the patient on the same day, and personally performed and documented my assessment and findings in the medical record. Patient presented with abdominal pain in which he was found to have pyelonephritis secondary to ureter stone. Urology is consulted and wanted to focus on medical management. Patient was put on Flomax and oral pain medication in which his symptoms improved drastically. Urine cultures grew Escherichia coli in which she was transitioned to oral medication. Initially he was put on Cipro but he is allergic to Cipro so that was discontinued was put on doxycycline. Patient to follow-up with his urologist and primary care physician within one week. gen NAD resp CTA B/L Abd soft NDNTno CVA tenderness. CV RRR. no r/m/g. Jerri Calvo Apr 18, 2017 10:42 Val Suarez MD Apr 18, 2017 12:50
--- NOTE | 2017-04-18 10:47 | HHI.DS ---
Discharge Summary Admission Date Apr 14, 2017 at 18:05 Admitting Diagnosis Sepsis secondary to pyelonephritis Acute kidney failure Kidney stone (1) Sepsis ICD Code: A41.9 (2) Acute kidney failure ICD Code: N17.9 (3) Hydronephrosis ICD Code: N13.30 (4) Pyelonephritis ICD Code: N12 (5) Kidney stones ICD Code: N20.0 (6) Atrophy of left kidney ICD Code: N26.1 Brief History - From Admission Patient is a 61-year-old male with primary medical history of Marfan syndrome, neuropathy, kidney stones, urethral stent placements who came into the hospital for evaluation of left flank pain. Patient states that the pain started yesterday, dull achy occasionally sharp, on his left flank area, radiating towards the abdomen, aggravated by breathing, movement. He did not take his temperature but feels hot last night and by chills. He reports nausea but no vomiting. He reports dysuria and history of kidney stones including urethral stents placement and removal. He used to see Dr. Ibarra. Patient reports feeling "raw." Denies SOB/ dyspnea. Denies chest pain, palpitations, headaches, dizziness. CBC/BMP: 04/18/17 0530 04/18/17 0530 Significant Findings Laboratory Tests Test 04/15/17 04/16/17 04/17/17 04/18/17 12:03 05:31 06:05 05:30 White Blood Count 12.1 TH/MM3 (4.0-11.0) Red Blood Count 3.16 MIL/MM3 2.93 MIL/MM3 2.99 MIL/MM3 (4.50-5.90) (4.50-5.90) (4.50-5.90) Hemoglobin 10.2 GM/DL 9.4 GM/DL 9.8 GM/DL (13.0-17.0) (13.0-17.0) (13.0-17.0) Hematocrit 30.3 % 28.2 % 28.9 % (39.0-51.0) (39.0-51.0) (39.0-51.0) Neutrophils (%) (Auto) 88.2 % 74.2 % (16.0-70.0) (16.0-70.0) Lymphocytes (%) (Auto) 3.5 % (9.0-44.0) Neutrophils # (Auto) 10.7 TH/MM3 (1.8-7.7) Lymphocytes # (Auto) 0.4 TH/MM3 0.7 TH/MM3 (1.0-4.8) (1.0-4.8) Blood Urea Nitrogen 23 MG/DL (7-18) 22 MG/DL (7-18) Creatinine 1.85 MG/DL 1.66 MG/DL 1.40 MG/DL 1.45 MG/DL (0.60-1.30) (0.60-1.30) (0.60-1.30) (0.60-1.30) Estimat Glomerular Filtration 37 ML/MIN (>89) 42 ML/MIN (>89) 52 ML/MIN (>89) 50 ML/MIN (>89) Rate Calcium Level 7.8 MG/DL 7.6 MG/DL 8.4 MG/DL 8.1 MG/DL (8.5-10.1) (8.5-10.1) (8.5-10.1) (8.5-10.1) Alanine Aminotransferase 11 U/L (12-78) (ALT/SGPT) Total Protein 5.7 GM/DL (6.4-8.2) Albumin 2.7 GM/DL (3.4-5.0) Chloride Level 108 MEQ/L 112 MEQ/L 115 MEQ/L (98-107) (98-107) (98-107) Carbon Dioxide Level 20.2 MEQ/L 18.1 MEQ/L 19.7 MEQ/L (21.0-32.0) (21.0-32.0) (21.0-32.0) Monocytes (%) (Auto) 10.4 % (0.0-8.0) PE at Discharge GENERAL: Thin appearing older than stated age male, in nad. Awake and alert. Sitting up in hospital bed eating breakfast. CARDIOVASCULAR: Regular rate and rhythm without murmurs, gallops, or rubs. RESPIRATORY: Breath sounds equal bilaterally. No accessory muscle use. GASTROINTESTINAL: Abdomen soft, non-tender, nondistended. (+)BS x 4 quadrants. MUSCULOSKELETAL: No cyanosis, or edema. BACK: Nontender without obvious deformity. No CVA tenderness. Pt Condition on Discharge: Good Discharge Disposition: Discharge Home Discharge Instructions DIET: Follow Instructions for: Heart Healthy Diet, Renal Failure Diet Activities you can perform: Regular-No Restrictions Follow up Referrals: PCP Follow-up - 1 Week with Kelton Ibarra MD Urology - 1 Week with Kelton Ibarra MD New Medications: Ciprofloxacin (Cipro) 500 Mg Tab 500 MG PO BID Infection #20 Ref 0 TAB Oxycodone-Acetaminophen (Oxycodone-Acetaminophen) 10-325 mg Tab 1 TAB PO Q4H PRN moderate and severe pain #20 Ref 0 TAB Jerri Calvo Apr 18, 2017 10:47
--- NOTE | 2017-04-18 11:05 | HHI.DCPOC ---
Discharge Care Plan Diagnosis: (1) Marfan syndrome (2) Chronic Renal Failure / insufficiency, unspec (3) Hydronephrosis (4) Kidney stones (5) Acute kidney failure (6) Pyelonephritis (7) Sepsis (8) Atrophy of left kidney Goals to Promote Your Health * To prevent worsening of your condition and complications * To maintain your health at the optimal level Directions to Meet Your Goals Please follow up with Dr. Phillips of Urology in one week Please follow up with PCP in one week Take your medications as prescribed Follow your dietary instruction Follow activity as directed Keep your appointments as scheduled Take your immunizations and boosters as scheduled If your symptoms worsen call your PCP, if no PCP go to Urgent Care Center or Emergency Room Smoking is Dangerous to Your Health. Avoid second hand smoke Call the 24-hour hour crisis hotline for domestic abuse at Jerri Calvo Apr 18, 2017 11:05
[2017-04-18] MEDS ORDERED: TAMS5CAP PO (11:37)
[2017-04-18 12:00] VITALS: BP 176/89; PULSE 81; RESP 18; TEMP 96.5; O2SAT 94
[2017-04-18] MEDS ORDERED: DOXY100C PO (12:36)
== END 2017-04-18 13:30 | disposition home or self-care (01) | DRG 872 ==
LOC: NEPD 13:17 → NEDA 18:05 → N07B 21:12
PROVIDERS: ADMIT Family Medicine; ATTEND Family Medicine
DX: A41.51 Sepsis due to Escherichia coli [E. coli] (principal); N17.9 Acute kidney failure, unspecified; Q87.40 Marfan syndrome, unspecified; G62.9 Polyneuropathy, unspecified; N20.2 Calculus of kidney with calculus of ureter; N13.6 Pyonephrosis; R65.20 Severe sepsis without septic shock; K40.90 Unilateral inguinal hernia, without obstruction or gangrene, not specified as recurrent; K21.9 Gastro-esophageal reflux disease without esophagitis; J45.909 Unspecified asthma, uncomplicated; I70.202 Unspecified atherosclerosis of native arteries of extremities, left leg; F41.9 Anxiety disorder, unspecified; F41.0 Panic disorder [episodic paroxysmal anxiety]; F32.9 Major depressive disorder, single episode, unspecified; Z87.442 Personal history of urinary calculi; Z87.891 Personal history of nicotine dependence; Z88.0 Allergy status to penicillin; Z88.1 Allergy status to other antibiotic agents; Z88.5 Allergy status to narcotic agent; Z98.1 Arthrodesis status
CPT/HCPCS: 74000; 74176; 76937; 80048; 80053; 81001; 83605; 85025; 85027; 87040; 87077; 87086; 87186; 94664; 96361; 96365; 96375; J0696; J1885; J2270; J2405; J7030

== ENCOUNTER 2017-05-20 00:49 | Inpatient (IN) | payer OTHER ==
[2017-05-20] VITALS (16 sets, daily range): BP systolic 112–169; BP diastolic 56–84; PULSE 86–120; RESP 18–22; TEMP 98.9–101.2; O2SAT 96–99
[~2017-05-20] VITALS: Ht 188 cm; Wt 57.8 kg
[~2017-05-20 00:49] MED LIST changes: -DIPH25 PO; +DOXY100C PO; -FLEX10TA PO; +OXYC1TAB36 PO; -SERO200T2 PO; +TAMS5CAP PO
--- NOTE | 2017-05-20 00:59 | PD ---
HPI Chief Complaint: Pain: Acute or Chronic Time Seen by Provider: 00:55 Travel History International Travel<30 days: No Contact w/Intl Traveler<30days: No Traveled to known affect area: No History of Present Illness HPI 61-year-old male came to the emergency room with history of severe right sided abdominal pain, nausea vomiting and hematuria. Apparently patient has history of multiple kidney stones. Patient was given total of 8 mg of morphine on route for his pain. When he arrived he was still in discomfort as per him. No history of nausea vomiting. He also says that he has right-sided inguinal hernia that seems to be more swollen than usual. He was tachycardic upon arrival. But his blood pressure was within normal limits. Patient has history of Marfan syndrome. He was just discharged from the hospital about 3-4 weeks ago for UTI. [facility] Past Medical History Narrative Medical List of his past medical, surgical, social and family history was reviewed from the nursing note. Arthritis: No Asthma: Yes (IN CHILDHOOD) Bipolar Disorder: Yes Anxiety: Yes Depression: Yes Heart Rhythm Problems: No Cancer: No Cardiovascular Problems: No High Cholesterol: No Chest Pain: Yes Congestive Heart Failure: No COPD: No Cerebrovascular Accident: No Diabetes: No Diminished Hearing: No Endocrine: No GERD: Yes Genitourinary: No Headaches: Yes Hepatitis: No Hiatal Hernia: No Immune Disorder: No Kidney Stones: Yes Musculoskeletal: Yes (BACK AND NECK PAIN) Neurologic: Yes (NUMBNESS AND TINGLING IN FEET) Psychiatric: Yes (bi-polar) Reproductive: No Respiratory: Yes (ASTHMA, COPD, HX PULMONARY EMBOLISM) Immunizations Current: No Migraines: Yes Renal Failure: Yes Seizures: No Sleep Apnea: No Thyroid Disease: No Ulcer: Yes Past Surgical History Abdominal Surgery: Yes (BOWEL RESECTION 18 YEARS AGO) AICD: No Arteriovenous Shunt: No Body Medical Devices: URETRAL STENTS cervical hardware Cardiac Surgery: No Ear Surgery: No Endocrine Surgery: No Eye Surgery: No Genitourinary Surgery: Yes (URETERAL STENTS, ESWL ) Gynecologic Surgery: No Insulin Pump: No Joint Replacement: No Neurologic Surgery: Yes (C7 FUSION) Oral Surgery: Yes (ALL TEETH REMOVED) Pacemaker: No Thoracic Surgery: No Tonsillectomy: Yes Social History Alcohol Use: No Tobacco Use: Yes (1/2 PPD) Substance Use: No Allergies-Medications (Allergen,Severity, Reaction): Coded Allergies: ciprofloxacin (Unverified Allergy, Severe, 05/20/17) penicillin G (Unverified Allergy, Severe, muscle weakness, 05/20/17) meperidine (Unverified Adverse Reaction, Severe, Hallucinations, 05/20/17) Comments List of his allergies reviewed from the nursing note. Reported Meds & Prescriptions Reported Meds & Active Scripts Active Narrative Medication List of his home medications reviewed from the nursing note. Review of Systems Except as stated in HPI: all other systems reviewed are Neg Physical Exam Narrative GENERAL: Awake, alert, moderate distress SKIN: Focused skin assessment warm/dry. HEAD: Atraumatic. Normocephalic. EYES: Pupils equal and round. No scleral icterus. No injection or drainage. ENT: No nasal bleeding or discharge. Mucous membranes pink and moist. NECK: Trachea midline. No JVD. CARDIOVASCULAR: Regular rate and rhythm. No murmur appreciated. RESPIRATORY: No accessory muscle use. Clear to auscultation. Breath sounds equal bilaterally. GASTROINTESTINAL: Abdomen soft, non-tender, nondistended. Hepatic and splenic margins not palpable. Right-sided inguinal hernia that is large MUSCULOSKELETAL: No obvious deformities. No clubbing. No cyanosis. No edema. NEUROLOGICAL: Awake and alert. No obvious cranial nerve deficits. Motor grossly within normal limits. Normal speech. PSYCHIATRIC: Appropriate mood and affect; insight and judgment normal. Data Data Last Documented VS Orders Orders Complete Blood Count With Diff (05/20/17 01:03) Comprehensive Metabolic Panel (05/20/17 01:03) Lipase (05/20/17 01:03) Urinalysis - C+S If Indicated (05/20/17 01:03) Ct Abd/Pel W/O Iv Contrast (05/20/17 01:03) Iv Access Insert/Monitor (05/20/17 01:03) Ecg Monitoring (05/20/17 01:03) Oximetry (05/20/17 01:03) Sodium Chlor 0.9% 1000 Ml Inj (Ns 1000 M (05/20/17 01:03) Sodium Chloride 0.9% Flush (Ns Flush) (05/20/17 01:15) Ketorolac Inj (Toradol Inj) (05/20/17 01:15) Blood Culture (05/20/17 01:03) Lactic Acid (05/20/17 01:03) ^ Straight Catheter (05/20/17 02:52) Urine Culture (05/20/17 03:00) Ceftriaxone Inj (Rocephin Inj) (05/20/17 04:15) Heparin Infusion YEE.Q1H (05/20/17 04:13) Heparin Inj (Heparin Inj) (05/20/17 04:15) Heparin Inj (Heparin Inj) (05/20/17 10:15) Heparin Inj (Heparin Inj) (05/20/17 10:15) Heparin-D5w 25,000 U/250 Ml (Heparin-D5w (05/20/17 04:15) Act Partial Throm Time (Ptt) (05/20/17 04:13) Prothrombin Time / Inr (Pt) (05/20/17 04:13) Cbc No Diff, Includes Plts (05/20/17 04:13) Cbc No Diff, Includes Plts (05/23/17 06:00) Act Partial Throm Time (Ptt) (05/20/17 11:13) Occult Blood (Hemoccult) Stool (05/20/17 04:13) Admit Order (Ed Use Only) (05/20/17 04:21) Labs Laboratory Tests Test 05/20/17 01:15 05/20/17 02:15 05/20/17 03:00 Blood Urea Nitrogen 21 MG/DL Creatinine 1.96 MG/DL Random Glucose 117 MG/DL Total Protein 6.6 GM/DL Albumin 3.2 GM/DL Calcium Level 8.4 MG/DL Alkaline Phosphatase 69 U/L Aspartate Amino Transf (AST/SGOT) 9 U/L Alanine Aminotransferase (ALT/SGPT) 10 U/L Total Bilirubin 0.5 MG/DL Sodium Level 138 MEQ/L Potassium Level 3.6 MEQ/L Chloride Level 105 MEQ/L Carbon Dioxide Level 22.4 MEQ/L Anion Gap 11 MEQ/L Estimat Glomerular Filtration Rate 35 ML/MIN Lactic Acid Level 1.4 mmol/L Lipase 179 U/L White Blood Count 16.7 TH/MM3 Red Blood Count 3.67 MIL/MM3 Hemoglobin 11.3 GM/DL Hematocrit 34.2 % Mean Corpuscular Volume 93.2 FL Mean Corpuscular Hemoglobin 30.8 PG Mean Corpuscular Hemoglobin Concent 33.0 % Red Cell Distribution Width 13.1 % Platelet Count 205 TH/MM3 Mean Platelet Volume 8.0 FL Neutrophils (%) (Auto) 84.6 % Lymphocytes (%) (Auto) 5.5 % Monocytes (%) (Auto) 8.8 % Eosinophils (%) (Auto) 0.6 % Basophils (%) (Auto) 0.5 % Neutrophils # (Auto) 14.2 TH/MM3 Lymphocytes # (Auto) 0.9 TH/MM3 Monocytes # (Auto) 1.5 TH/MM3 Eosinophils # (Auto) 0.1 TH/MM3 Basophils # (Auto) 0.1 TH/MM3 CBC Comment DIFF FINAL Differential Comment Urine Color YELLOW Urine Turbidity CLOUDY Urine pH 6.0 Urine Specific [place] 1.021 Urine Protein 300 mg/dL Urine Glucose (UA) NEG mg/dL Urine Ketones NEG mg/dL Urine Occult Blood MOD Urine Nitrite POS Urine Bilirubin NEG Urine Urobilinogen LESS THAN 2.0 MG/DL Urine Leukocyte Esterase LARGE Urine RBC 79 /hpf Urine WBC /hpf Urine WBC Clumps MANY Urine Amorphous Sediment RARE Urine Bacteria MANY /hpf Microscopic Urinalysis Comment CULTURE INDICATED MDM Medical Decision Making Medical Screen Exam Complete: Yes Emergency Medical Condition: Yes Medical Record Reviewed: Yes Interpretation(s) Twelve-lead EKG was reviewed by me. Atrial fibrillation, normal axis, PVCs. Heart rate of 86 bpm. Differential Diagnosis Ureteral colic, pyelonephritis, acute appendicitis, acute diverticulitis Narrative Course 2:31 AM chemistry result is back and looks to be within normal limit. Lactic acid is within normal limit. Awaiting for the CBC and UA. CAT scan shows multiple nephrolithiasis but no ureteral calculus. Patient has moderate left hydronephrosis but as per the radiologist it looks slightly better than compared to the CT scan from May 01. Rest of the CAT scan is within acceptable limits. If the blood test result comes back to be within normal limit patient will be discharged home. 4:04 AM awaiting for the UA. Patient has leukocytosis. 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 I asked for an EKG which shows atrial fibrillation. His past medical history does not show A. fib which would make this a new onset A. fib at this point. 4:11 AM UA is back and is grossly abnormal for UTI. Patient continues to be in some discomfort. I will admit him at this point for UTI, intractable pain and new onset atrial fibrillation. Awaiting for the hospitalist to call back. I' ve given him a dose of Rocephin and I will start him on heparin bolus and drip. 5 AM patient refused to get heparin because he says when he was 21 years old he got heparin and had a seizure. However he has not listed heparin as an allergy and seizure is not really an allergic reaction to heparin. However patient denied getting heparin. I explained to him the risks of having a stroke from atrial fibrillation without getting anticoagulated and once again given his poor renal function he is not a good candidate for the synthetic anticoagulants. Patient is in full capacity to make decisions for himself. He understands the risks. Critical Care Narrative Aggregate critical care time was 45 minutes. Time to perform other separately billable procedures was not included in the critical care time. My time did not include minutes spent treating any other patients simultaneously or on activities that did not directly contribute to the patient's treatment. The services I provided to this patient were to treat and/or prevent clinically significant deterioration that could result in: New-onset atrial fibrillation, heparin bolus and drip I provided critical care services requiring my management, as noted below: Chart data review, documentation time, medication orders and management, vital sign assessments/reviewing monitor data, ordering and reviewing lab tests, ordering and interpreting/reviewing x-rays and diagnostic studies, care of the patient and discussion of the patient with the admitting physicians. Procedures EKG Prior to Arrival: No Diagnosis Primary Impression: UTI (urinary tract infection) Additional Impressions: Intractable abdominal pain New onset atrial fibrillation SIRS (systemic inflammatory response syndrome) chronic hydronephrosis Chronic Renal Failure / insufficiency, unspec Admitting Information Admitting Physician Requests: Admit Scripts Levofloxacin (Levofloxacin) 750 Mg Tablet 750 MG PO Q48H for Infection, #7 TAB 0 Refills Prov: Gilmar Abebe MD 05/24/17 Mirtazapine (Mirtazapine) 15 Mg Tab 15 MG PO HS for Anxiety and/or Insomnia, #30 TAB Prov: Gilmar Abebe MD 05/24/17 Cristina Barros MD May 20, 2017 00:59
[2017-05-20] MEDS ORDERED: SODIUM CHLOR 0.9% 1000 ML INJ 1,000 ML IV SCH (01:03)
[2017-05-20] MEDS ORDERED: SODIUM CHLORIDE 0.9% FLUSH 10 ML FLUSH IV FLUSH PRN ×2 (01:15→04:30)
[2017-05-20] MEDS ORDERED: KETOROLAC TROMETHAMINE 30 MG/ML (IVP) VIAL IVP ONE (01:15)
[2017-05-20 01:42] LABS: ALT (GPT) 10 U/L (12-78); ANION GAP 11 MEQ/L (5-15); AST (GOT) 9 U/L (15-37); BICARBONATE 22.4 MEQ/L (21.0-32.0); BLOOD UREA NITROGEN 21 MG/DL (7-18); CHLORIDE 105 MEQ/L (98-107); GLOMERULAR FILTRATION RATE 35 ML/MIN (>89); POTASSIUM 3.6 MEQ/L (3.5-5.1); SODIUM (NA) 138 MEQ/L (136-145)
[2017-05-20 01:44] LABS: ALKALINE PHOSPHATASE 69 U/L (45-117); TOTAL BILIRUBIN ADULT 0.5 MG/DL (0.2-1.0)
--- NOTE | 2017-05-20 02:14 | RADRPT ---
EXAM DATE/TIME: 05/20/2017 01:31 [facility] COMPARISON: CT ABDOMEN & PELVIS W/O CONTRAST, April 14, 2017, 16:55. INDICATIONS : Abdominal pain. ORAL CONTRAST: No oral contrast ingested. RADIATION DOSE: 9.96 CTDIvol (mGy) MEDICAL HISTORY : Renal calculi. Marfan's syndrome. SURGICAL HISTORY : Colostomy. Colon resection. ENCOUNTER: Initial ACUITY: 3 days PAIN SCALE: 10/10 LOCATION: abdomen TECHNIQUE: Volumetric scanning of the abdomen and pelvis was performed. Using automated exposure control and ad justment of the mA and/or kV according to patient size, radiation dose was kept as low as reasonably achievable to obtain optimal diagnostic quality images. DICOM format image data is available electro nically for review and comparison. FINDINGS: Compare April 14. There is a moderate to severe thoracolumbar dextroscoliosis with a right lateral lis thesis of L2 on L3. Lung bases are clear. No acute findings seen the liver, spleen or pancreas. No calcified gallstones. Again seen are numerous nonobstructing right renal calculi. There is moderate left-sided hydronephros is which has improved slightly since April 14. Numerous left renal calculi also noted, nonobstructing. Previous left ureteral calculi no longer identified. No bladder calculi. There is no bowel obstruction. Mild constipation. No free air or free fluid. There is a right-sided i nguinal hernia with bowel extending into the very proximal portion of the right inguinal canal. This is less than on previous exam. Severe calcified plaque left femoral artery with likely stenosis. CONCLUSION: 1. Atrophic left kidney with moderate hydronephrosis, slightly improved from April 14. Previous left u reteral calculi no longer visualized. Additional bilateral nonobstructing renal calculi. 2. Right inguinal hernia with bowel and the proximal inguinal canal, improved in appearance from April 14. 3. No bowel obstruction. Mild ileus. Mild constipation. 4. Moderate to severe scoliosis. 5. Small hiatal hernia. Paul Hylton MD on May 20, 2017 at 2:05 Board Certified Radiologist. This report was verified electronically.
[2017-05-20 02:34] LABS: AUTOMATED NEUTROPHIL # 14.2 TH/MM3 (1.8-7.7); BASOPHIL # 0.1 TH/MM3 (0-0.2); BASOPHIL % 0.5 % (0.0-2.0); EOSINOPHIL # 0.1 TH/MM3 (0-0.4); EOSINOPHIL % 0.6 % (0.0-4.0); HEMATOCRIT 34.2 % (39.0-51.0); HEMO FLAGS DIFF FINAL; LYMPH % 5.5 % (9.0-44.0); LYMPHOCYTE # 0.9 TH/MM3 (1.0-4.8); MEAN CELL VOLUME 93.2 FL (80.0-100.0); MEAN CORPUSCULAR HEMOGLOBIN 30.8 PG (27.0-34.0); MONO % 8.8 % (0.0-8.0); NEUT % 84.6 % (16.0-70.0); PLATELET COUNT 205 TH/MM3 (150-450); RED BLOOD COUNT 3.67 MIL/MM3 (4.50-5.90); RED CELL DISTRIBUTION WIDTH 13.1 % (11.6-17.2); WHITE BLOOD COUNT 16.7 TH/MM3 (4.0-11.0)
[2017-05-20 04:00] LABS: BACTERIA, URINE MANY /hpf; BLOOD, URINE MOD (NEG); COMMENT (UR) CULTURE INDICATED; CULTURE IF INDICATED CULTURE INDICATED; GLUCOSE,URINE NEG (NEG); KETONE, URINE NEG (NEG); URINE COLOR YELLOW (YELLW/STRAW)
[2017-05-20 04:07] LABS: NITRITE,URINE POS (NEG)
[2017-05-20] MEDS ORDERED: HEPARIN-D5W 25,000 U/250 ML 250 ML IV SCH (04:15)
[2017-05-20] MEDS ORDERED: cefTRIAXone INJ 1,000 MG in SODIUM CHLORIDE 0.9% INJ 100 ML IV ONE (04:15)
[2017-05-20] MEDS ORDERED: HEPARIN SODIUM - IV 10,000 UNITS/10 ML VIAL IV ONE (04:15)
[2017-05-20] MEDS ORDERED: LACTULOSE SYRUP 20 GM/30 ML CUP PO PRN (04:30)
[2017-05-20] MEDS ORDERED: ONDANSETRON HCL 4 MG/2 ML VIAL IVP PRN (04:30)
[2017-05-20] MEDS ORDERED: HYDROmorphone HCL PF 1 MG/ML VIAL IV PRN (04:30)
[2017-05-20] MEDS ORDERED: SENNOSIDES 8.6 MG TAB PO PRN (04:30)
[2017-05-20] MEDS ORDERED: BISACODYL 10 MG SUPP RECTAL PRN (04:30)
[2017-05-20] MEDS ORDERED: MAGNESIUM HYDROXIDE SUSP 30 ML CUP PO PRN (04:30)
[2017-05-20] MEDS: SODIUM CHLOR 0.9% 1000 ML INJ 1,000 ML IV SCH ×2 (05:11→15:31)
[2017-05-20 06:25] LABS: HEMATOCRIT 36.5 % (39.0-51.0); MEAN CELL VOLUME 94.6 FL (80.0-100.0); MEAN CORPUSCULAR HEMOGLOBIN 31.6 PG (27.0-34.0); MEAN CORPUSCULAR HGB CONC 33.3 % (32.0-36.0); PLATELET COUNT 196 TH/MM3 (150-450); RED BLOOD COUNT 3.86 MIL/MM3 (4.50-5.90); RED CELL DISTRIBUTION WIDTH 13.4 % (11.6-17.2); REVIEW FLAG FINAL; WHITE BLOOD COUNT 15.6 TH/MM3 (4.0-11.0)
[2017-05-20 06:37] LABS: INTERNATIONAL NORMALIZED RATIO 0.9 RATIO; PROTHROMBIN TIME - PATIENT 10.1 SEC (9.8-11.6)
[2017-05-20] MEDS: SODIUM CHLORIDE 0.9% FLUSH 10 ML FLUSH IV FLUSH SCH ×2 (09:05→19:46)
[2017-05-20] MEDS: DOCUSATE SODIUM 50 MG/SENNA 8.6 MG TAB PO SCH ×2 (09:22→19:46)
[2017-05-20] MEDS ORDERED: GLYCERIN ADULT 2 GM SUPP RECTAL ONE (09:45)
[2017-05-20] MEDS ORDERED: SOD PHOSPHATE/SOD BIPHOSPHATE (ADULT) ENEMA 133ML RECTAL ONE (09:45)
--- NOTE | 2017-05-20 09:46 | HHI.HP ---
[facility] Service [facility] Primary Care Physician No Primary Care Physician Admission Diagnosis intractable abd pain Diagnoses: (1) Marfan syndrome Diagnosis: Secondary (2) Intractable abdominal pain Diagnosis: Principal Travel History International Travel<30 Days: No Contact w/Intl Traveler <30 Da: No Traveled to Known Affected Are: No History of Present Illness 61-year-old white male was in his usual state of health until about 2-3 days ago when he developed lower abdominal pain and dysuria. He states that the pain originally started on his left abdomen, felt sharp and colicky in nature. Was originally tolerable as long as he laid still, but when he moved around the pain got substantially worse and became intolerable over the next few days leading him to come to the emergency room. He says that the pain did radiate over to his mid abdomen and also down to his right testicle, and now has a diffuse abdominal soreness with a focus in the epigastrium. Denies nausea vomiting but does report having no appetite. Reports feeling feverish with chills and sick overall. Does not have distention of blas back pain, denies hematuria. Says that this pain feels the first time he had kidney stones, different from his most recent admission for pyelonephritis about a month ago. Since his last admission, the patient states that he did take whatever antibiotic he was prescribed (which by chart appears to be ciprofloxacin but the patient adamantly denies that it was Cipro since he has a reported allergy to it). He had been pain free since his last hospitalization discharge up until this acute presentation a few days ago. He does report that his right groin hernia has had increased pain during this time as well. Denies any changes in his urinary habits apart from dysuria. Does report having decreased bowel movements since 4 days ago which is not normal for him. Says he did not take any medications to treat the pain over the past few days and denies taking any medications for that matter regularly. Does report trying to drink some water but has barely eaten due to anorexia. He denies any chest pain or shortness of breath. Review of Systems Except as stated in HPI: all other systems reviewed are Neg Past Family Social History Past Medical History Kidney stones, Marfan syndrome Past Surgical History bowel resection (secondary to bowel perforation due to unspecified cause per patient), tonsillectomy, cystoscopy with laser lithotripsy and stent placements, C7 fusion. Reported Medications Reported Meds & Active Scripts Active No Active Prescriptions or Reported Medications Allergies: Coded Allergies: ciprofloxacin (Unverified Allergy, Severe, 05/20/17) penicillin G (Unverified Allergy, Severe, muscle weakness, 05/20/17) meperidine (Unverified Adverse Reaction, Severe, Hallucinations, 05/20/17) Family History Nephrolithiasis in father Social History Is disabled, lives alone in an apartment Physical Exam Vital Signs Vital Signs Date Time Temp Pulse Resp B/P Pulse Ox O2 Delivery O2 Flow Rate FiO2 05/20/17 06:48 18 05/20/17 06:28 86 18 120/64 96 Room Air 05/20/17 01:13 98 Room Air 05/20/17 00:57 99.7 101 22 126/73 99 Physical Exam VS: Reviewed, stable afebrile GENERAL: Reviewed, appears to be in mild pain, lying still in bed SKIN: Warm and dry. EYES: Pupils equal and round. No scleral icterus. No injection or drainage. ENT: No nasal bleeding or discharge. Mucous membranes pink and moist. CARDIOVASCULAR: Regular rate and rhythm. no murmurs RESPIRATORY: No accessory muscle use. Clear to auscultation. Breath sounds equal bilaterally. GASTROINTESTINAL: Abdomen soft, has mild diffuse tenderness to palpation with no focal palpable masses, no rebound left flank is mildly tender to palpation but there is no blas CVA tenderness to percussion bilaterally : Diabetes Scrotal swelling noted prominently on the right side, as diffuse mild tenderness over right scrotum and normal sized right testicle with no palpable abnormal lesions otherwise. Not reducible at this time. MUSCULOSKELETAL: Extremities without clubbing, cyanosis, or edema. NEUROLOGICAL: Awake and alert. No obvious cranial nerve deficits. No facial droop nor slurred speech noted. PSYCHIATRIC: Appropriate mood and affect; insight and judgment normal. Laboratory Laboratory Tests Test 05/20/17 05/20/17 05/20/17 05/20/17 01:15 02:15 03:00 06:15 Sodium Level 138 Potassium Level 3.6 Chloride Level 105 Carbon Dioxide Level 22.4 Anion Gap 11 Blood Urea Nitrogen 21 Creatinine 1.96 Estimat Glomerular Filtration 35 Rate Random Glucose 117 Lactic Acid Level 1.4 Calcium Level 8.4 Total Bilirubin 0.5 Aspartate Amino Transf 9 (AST/SGOT) Alanine Aminotransferase 10 (ALT/SGPT) Alkaline Phosphatase 69 Total Protein 6.6 Albumin 3.2 Lipase 179 White Blood Count 16.7 15.6 Red Blood Count 3.67 3.86 Hemoglobin 11.3 12.2 Hematocrit 34.2 36.5 Mean Corpuscular Volume 93.2 94.6 Mean Corpuscular Hemoglobin 30.8 31.6 Mean Corpuscular Hemoglobin 33.0 33.3 Concent Red Cell Distribution Width 13.1 13.4 Platelet Count 205 196 Mean Platelet Volume 8.0 8.1 Neutrophils (%) (Auto) 84.6 Lymphocytes (%) (Auto) 5.5 Monocytes (%) (Auto) 8.8 Eosinophils (%) (Auto) 0.6 Basophils (%) (Auto) 0.5 Neutrophils # (Auto) 14.2 Lymphocytes # (Auto) 0.9 Monocytes # (Auto) 1.5 Eosinophils # (Auto) 0.1 Basophils # (Auto) 0.1 CBC Comment DIFF FINAL Differential Comment Urine Color YELLOW Urine Turbidity CLOUDY Urine pH 6.0 Urine Specific [place] 1.021 Urine Protein 300 Urine Glucose (UA) NEG Urine Ketones NEG Urine Occult Blood MOD Urine Nitrite POS Urine Bilirubin NEG Urine Urobilinogen LESS THAN 2.0 Urine Leukocyte Esterase LARGE Urine RBC 79 Urine WBC Urine WBC Clumps MANY Urine Amorphous Sediment RARE Urine Bacteria MANY Microscopic Urinalysis Comment CULTURE INDICATED Prothrombin Time 10.1 Prothromb Time International 0.9 Ratio Activated Partial 30.0 Thromboplast Time Date/Time Procedure Status Source Growth 05/20/17 03:00 Urine Culture Received Urine Clean Catch Pending 05/20/17 01:15 Aerobic Blood Culture Received Blood Peripheral Pending 05/20/17 01:15 Anaerobic Blood Culture Received Blood Peripheral Pending Result Diagram: 05/20/17 0615 05/20/17 0115 Imaging Last 24 hours Impressions Abdomen/Pelvis CT 05/20/17 010 Signed Impressions: Service Date/Time: Monday, May 20, 2017 01:31 - CONCLUSION: 1. Atrophic left kidney with moderate hydronephrosis, slightly improved from April 14. Previous left ureteral calculi no longer visualized. Additional bilateral nonobstructing renal calculi. 2. Right inguinal hernia with bowel and the proximal inguinal canal, improved in appearance from April 14. 3. No bowel obstruction. Mild ileus. Mild constipation. 4. Moderate to severe scoliosis. 5. Small hiatal hernia. Paul Hylton MD Assessment and Plan Problem List: (1) UTI (urinary tract infection) ICD Code: N39.0 Status: Acute (2) Intractable abdominal pain ICD Code: R10.9 Status: Acute (3) Marfan syndrome ICD Code: Q87.40 Status: Acute (4) Chronic Renal Failure / insufficiency, unspec ICD Code: 585.9 Status: Chronic (5) Scrotal swelling ICD Code: N50.89 Status: Acute Assessment and Plan 61-year-old white male being admitted for intractable abdominal pain. Clinically stable upon admission. 1) intractable abdominal pain - likely multifactorial, at the least suspect uncomplicated to complicated cystitis with obvious severe constipation noted on CT scan that would make this pain worse. Given radiation to right testicle and scrotum that I am able to reproduce on palpation, suspect that this is more related to his inguinal hernia as opposed to any obstructing kidney stone which is not noted on his CT scan at this time. 2) dysuria - suspect uncomplicated Cystitis at the very least, we'll continue with IV fluids and antibiotics. Follow-up urine culture. Previous culture grew out Escherichia coli that was pansensitive. 3) constipation - will treat with enema and by mouth meds, if no improvement will consider Gastrografin enema if available 4) scrotal swelling - unsure if there is a hydrocele component, we'll obtain testicular ultrasound, routine consult general surgery for further recommendations since pain is recurring in the region and has evident inguinal hernia on CT; although I do not feel that there is any acute strangulation at this time. I have reviewed the patient's EKGs independently including those previous to this admission, P waves are obvious and I feel that he has premature atrial contractions and not true A. fib. Canceling cardiac echo and cardiology consult. DVT prophylaxis with Lovenox. Physician Certification 2 Midnight Certification Type: Admission for Inpatient Services Order for Inpatient Services The services are ordered in accordance with Medicare regulations or non- Medicare payer requirements, as applicable. In the case of services not specified as inpatient-only, they are appropriately provided as inpatient services in accordance with the 2-midnight benchmark. Estimated LOS (days): 3 3 days is the estimated time the patient will need to remain in the hospital, assuming treatment plan goals are met and no additional complications. Post-Hospital Plan: Home Problem Qualifiers (1) UTI (urinary tract infection): Qualified Code: N39.0 - Urinary tract infection without hematuria, site unspecified Gilmar Abebe MD May 20, 2017 09:46
[2017-05-20] MEDS ORDERED: HEPARIN SODIUM - IV 10,000 UNITS/10 ML VIAL IV PRN ×2 (10:15)
--- NOTE | 2017-05-20 10:46 | RADRPT ---
EXAM DATE/TIME: 05/20/2017 09:54 [facility] COMPARISON: No previous studies available for comparison. INDICATIONS : Enlarged testicles. MEDICAL HISTORY : Gastroesophageal reflux disease. Migraine. Asthma. Renal disease. Kidney stones. Urinary tract i nfection. Depression. Anxiety. SURGICAL HISTORY : Tonsillectomy. C7 fusion. Colostomy. Bowel resection. Ureteral stents. ESWL. Neck surgery. ENCOUNTER: Initial ACUITY: >1 year PAIN SCORE: 7/10 LOCATION: Bilateral testicles. MEASUREMENTS: RIGHT TESTICLE: 4.3 x 2.9 x 2.4cm LEFT TESTICLE: 4.2 x 2.1 x 2.5cm FINDINGS: RIGHT TESTICLE: Homogeneous echotexture without intra or extratesticular mass. Blood flow is symmetric and within no rmal limits. Small hydrocele without varicocele. Epididymis is heterogeneous. Right inguinal hernia containing bowel and fluid. LEFT TESTICLE: Homogeneous echotexture without intra or extratesticular mass. Blood flow is symmetric and within no rmal limits. No hydrocele or varicocele. Epididymis is heterogeneous. SCROTUM: Scrotal wall thickening. CONCLUSION: 1. Right inguinal hernia containing bowel and fluid 2. No intratesticular mass. 3. Small right hydrocele. Zach Knott MD on May 20, 2017 at 10:38 Board Certified Radiologist. This report was verified electronically.
[2017-05-20] MEDS: POLYETHYLENE GLYCOL 17 GM PKG PO SCH (11:11)
[2017-05-20] MEDS: ENOXAPARIN SODIUM 30 MG/0.3 ML SYRINGE SQ SCH (11:41)
[2017-05-20 12:45] LABS: APTT (PATIENT) 29.3 SEC (24.3-30.1)
[2017-05-20] MEDS: ACETAMINOPHEN/HYDROcodone 325 MG/5 MG TAB PO PRN ×3 (13:39→23:02)
--- NOTE | 2017-05-20 14:34 | EKG ---
Date Performed: 05/20/2017 Time Performed: 03:04:22 PTAGE: 61 years EKG: Sinus rhythm WITH PACs AND CONSECUTIVE PACs PLUS ONE PVC POOR INITIAL ANTERIOR FORCES IN V1 AND V2, WHICH MAY BE NORMAL VARIANT. Compared to previous tracing, the PACs and PVCs are new. ABNORMAL ECG PREVIOUS TRACING : 12/20/2012 17.31 DOCTOR: Sanjay Devlin Interpretating Date/Time 05/20/2017 14:32:45
--- NOTE | 2017-05-20 18:02 | MB ---
cc: JADIEL HOLCOMB M.D. DATE OF CONSULTATION: 05/20/2017. REASON FOR CONSULTATION: Symptomatic right inguinal hernia. HISTORY OF PRESENT ILLNESS: The patient is a 61-year-old male who was in his usual state of health until about three to four days ago when he began developing abdominal pain and dysuria. This was sharp and colicky and necessitated visit to the emergency department. He was found to have significant urinary tract infection and is admitted for treatment of this. I have been asked to see the patient as he also has pain in the right groin from a hernia that has been present for the last three years. The patient denies any change in bowel habits or chronic cough. PAST MEDICAL HISTORY: His past medical history is significant for: 1. Kidney stones. 2. Marfan's syndrome. PAST SURGICAL HISTORY: 1. He has had surgery with bowel resection, colostomy placement and then colostomy takedown. The patient does not recall the exact reason. 2. Cystoscopy with lithotripsy and stent placements. 3. C7 fusion. 4. Tonsillectomy. MEDICATIONS: The patient was on no active prescriptions upon admission. ALLERGIES: He has allergies to: 1. PENICILLIN. 2. CIPROFLOXACIN. 3. MEPERIDINE. SOCIAL HISTORY: The patient is disabled and lives alone in an apartment. PHYSICAL EXAMINATION: GENERAL: The physical exam reveals a thin male in no acute distress. VITAL SIGNS: Blood pressure 167/84, pulse 102, temperature 100.1, respirations 21, 99% saturation on room air. HEAD, EYES, EARS, NOSE, THROAT: The sclerae are nonicteric. Pupils are reactive. CHEST: Clear to auscultation. CARDIAC: Tachycardia without murmurs. ABDOMEN: Soft and nontender. There is a reducible right inguinal hernia. Testes are bilaterally descended. The phallus is circumcised. There are no masses. The patient does have some discomfort with reduction of the hernia. There is no left inguinal defect. There is a well-healed midline scar on the abdomen and a small transverse left lower quadrant scar. There are no hernias on the abdomen. PULSES: Intact. EXTREMITIES: The patient is able to move all four extremities. LABORATORY VALUES: WBCs of 15.6 down from 16.7 early this morning. Hemoglobin is 12.2. Platelets are normal at 196,000. Chemistries demonstrate the BUN elevated at 21, creatinine 1.96. Liver function tests are low-normal. Albumin is low at 3.2. IMAGING STUDIES: CT of the abdomen and pelvis demonstrates right inguinal hernia with bowel and fatty tissue present with an improved appearance from April 14. There is no evidence of bowel obstruction, mild ileus and mild constipation. Small hiatal hernia was noticed as well. ASSESSMENT: Urinary tract infection with urosepsis, being treated. Right inguinal hernia, reducible, symptomatic. PLAN: Antibiotics for 48-72 hours for UTI, then plan surgical repair of hernia during this hospitalization. Patient is agreeable to this. MD ANGELICA Cee/RUTHANN /5:43 PM /5:50 PM MTDJose
[2017-05-20] MEDS ORDERED: LORazepam 2 MG/ML VIAL IV PUSH ONE (18:30)
[2017-05-20] MEDS ORDERED: HALOPERIDOL LACTATE 5 MG/ML AMP IM PRN (18:30)
[2017-05-20] MEDS ORDERED: SODIUM CHLOR 0.9% 1000 ML INJ 1,000 ML IV ONE (18:45)
[2017-05-20] MEDS: CEFEPIME INJ 2,000 MG in SODIUM CHLORIDE 0.9% INJ 100 ML IV SCH (19:20)
[2017-05-21] VITALS (16 sets, daily range): BP systolic 125–156; BP diastolic 58–85; PULSE 52–109; RESP 18–20; TEMP 97.4–99.6; O2SAT 95–100
[2017-05-21] MEDS: SODIUM CHLOR 0.9% 1000 ML INJ 1,000 ML IV SCH ×3 (00:23→21:06)
[2017-05-21] MEDS: ACETAMINOPHEN/HYDROcodone 325 MG/5 MG TAB PO PRN ×3 (04:10→21:06)
[2017-05-21 05:15] LABS: AUTOMATED NEUTROPHIL # 9.3 TH/MM3 (1.8-7.7); BASOPHIL # 0.1 TH/MM3 (0-0.2); BASOPHIL % 0.5 % (0.0-2.0); EOSINOPHIL # 0.1 TH/MM3 (0-0.4); EOSINOPHIL % 1.1 % (0.0-4.0); HEMATOCRIT 31.1 % (39.0-51.0); HEMO FLAGS DIFF FINAL; LYMPH % 7.4 % (9.0-44.0); LYMPHOCYTE # 0.9 TH/MM3 (1.0-4.8); MEAN CELL VOLUME 93.4 FL (80.0-100.0); MEAN CORPUSCULAR HEMOGLOBIN 31.3 PG (27.0-34.0); MEAN CORPUSCULAR HGB CONC 33.5 % (32.0-36.0); MONO % 10.8 % (0.0-8.0); NEUT % 80.2 % (16.0-70.0); PLATELET COUNT 181 TH/MM3 (150-450); RED BLOOD COUNT 3.33 MIL/MM3 (4.50-5.90); RED CELL DISTRIBUTION WIDTH 13.5 % (11.6-17.2); WHITE BLOOD COUNT 11.6 TH/MM3 (4.0-11.0)
[2017-05-21 05:23] LABS: ANION GAP 9 MEQ/L (5-15); AST (GOT) 10 U/L (15-37); BICARBONATE 19.4 MEQ/L (21.0-32.0); BLOOD UREA NITROGEN 20 MG/DL (7-18); CHLORIDE 107 MEQ/L (98-107); GLOMERULAR FILTRATION RATE 40 ML/MIN (>89); POTASSIUM 4.1 MEQ/L (3.5-5.1); SODIUM (NA) 135 MEQ/L (136-145)
[2017-05-21 05:24] LABS: ALT (GPT) 9 U/L (12-78)
[2017-05-21 05:25] LABS: ALKALINE PHOSPHATASE 93 U/L (45-117); TOTAL BILIRUBIN ADULT 0.4 MG/DL (0.2-1.0)
[2017-05-21] MEDS ORDERED: cefTRIAXone INJ 1,000 MG in SODIUM CHLORIDE 0.9% INJ 100 ML IV SCH (06:00)
[2017-05-21] MEDS: SODIUM CHLORIDE 0.9% FLUSH 10 ML FLUSH IV FLUSH SCH ×2 (09:00→21:00)
[2017-05-21] MEDS: CEFEPIME INJ 2,000 MG in SODIUM CHLORIDE 0.9% INJ 100 ML IV SCH (09:00)
[2017-05-21] MEDS: POLYETHYLENE GLYCOL 17 GM PKG PO SCH (09:00)
[2017-05-21] MEDS: DOCUSATE SODIUM 50 MG/SENNA 8.6 MG TAB PO SCH ×2 (09:00→21:00)
[2017-05-21] MEDS: ENOXAPARIN SODIUM 30 MG/0.3 ML SYRINGE SQ SCH (11:00)
--- NOTE | 2017-05-21 13:30 | HHI.PR ---
Subjective Remarks Patient says he is feeling better today in terms of his diffuse abdominal pain, says his burning with urination is still present and has not improved, so that he feels emotionally more stable today, when asked about depression symptoms he says he doesn't have that problem with decreased appetite and poor sleep Objective Vital Signs Date Time Temp Pulse Resp B/P (MAP) Pulse Ox O2 Delivery O2 Flow Rate FiO2 05/21/17 06:00 87 05/21/17 05:00 85 05/21/17 04:00 96 05/21/17 04:00 98.9 85 18 125/63 (83) 100 05/21/17 03:00 87 05/21/17 02:00 81 05/21/17 01:00 87 05/21/17 00:00 95 20 135/58 (83) 96 05/21/17 00:00 97 05/20/17 23:00 96 05/20/17 22:00 94 05/20/17 21:00 96 05/20/17 20:00 94 05/20/17 20:00 98.9 107 20 112/56 (74) 96 05/20/17 19:00 108 05/20/17 18:00 108 05/20/17 17:00 94 05/20/17 16:00 102 05/20/17 15:30 101.2 113 21 160/83 (108) 96 05/20/17 15:30 120 05/20/17 14:00 102 I/O 05/20/17 05/20/17 05/20/17 05/21/17 05/21/17 05/21/17 07:00 15:00 23:00 07:00 15:00 23:00 Intake Total 240 ml 860 ml Output Total 120 ml 700 ml Balance 120 ml 160 ml Intake Oral 240 ml 360 ml IV Total 500 ml Output Urine Total 120 ml 700 ml # Bowel Movements 1 Result Diagram: 05/21/1739905/21/17399 Imaging Last Impressions Abdomen/Pelvis CT 05/20/17102 Signed Impressions: Service Date/Time: Saturday, May 20, 2017 01:31 - CONCLUSION: 1. Atrophic left kidney with moderate hydronephrosis, slightly improved from April 14. Previous left ureteral calculi no longer visualized. Additional bilateral nonobstructing renal calculi. 2. Right inguinal hernia with bowel and the proximal inguinal canal, improved in appearance from April 14. 3. No bowel obstruction. Mild ileus. Mild constipation. 4. Moderate to severe scoliosis. 5. Small hiatal hernia. Paul Hylton MD Scrotum Ultrasound 05/20/17 0000 Signed Impressions: Service Date/Time: Monday, May 20, 2017 09:54 - CONCLUSION: 1. Right inguinal hernia containing bowel and fluid 2. No intratesticular mass. 3. Small right hydrocele. Zach Knott MD Objective Remarks GENERAL: Lying in bed sleeping, easily awoken, no acute distress CARDIOVASCULAR: Regular rate and rhythm without murmurs, gallops, or rubs. RESPIRATORY: Breath sounds equal and clear bilaterally. Unlabored breathing GASTROINTESTINAL: Abdomen soft, very mild tenderness to deep palpation over entire abdomen, no rebound : Right-sided inguinal hernia, nontender testicles and overall nontender scrotum MUSCULOSKELETAL: No cyanosis, or edema. A/P Assessment and Plan 61-year-old white male being admitted for intractable abdominal pain. Clinically stable upon admission. had fever on rocephin, therefore cefepime as ordered as a replacement for complicated cystitis/pyelonephritis. 1) intractable abdominal pain - IMPROVING - likely multifactorial, at the least suspect uncomplicated to complicated cystitis with obvious severe constipation noted on CT scan that would make this pain worse. Given radiation to right testicle and scrotum that I am able to reproduce on palpation, suspect that this is more related to his inguinal hernia as opposed to any obstructing kidney stone which is not noted on his CT scan at this time. tx as below 2) dysuria - now suspect complicated Cystitis given persistent dysuria and a fever while patient was on Rocephin , continue cefepime, follow-up urine culture , prelim is GNR 3) constipation - continue aggressive po laxatives 4) scrotal swelling - less painful today, US demonstrated small right hydrocele , gen surg has concluded reducible hernia, no signs of strangulation . 5) depression - starting qhs remeron to help with appetite and sleep DVT prophylaxis with Lovenox. Gilmar Abebe MD May 21, 2017 13:30
[2017-05-21] MEDS: MIRTAZAPINE 15 MG TAB PO SCH (21:06)
[2017-05-22] VITALS (13 sets, daily range): BP systolic 109–149; BP diastolic 58–98; PULSE 66–87; RESP 16–20; TEMP 98.1–99.6; O2SAT 96–100
[2017-05-22] MEDS: ACETAMINOPHEN/HYDROcodone 325 MG/5 MG TAB PO PRN (02:31)
[2017-05-22] MEDS: SODIUM CHLOR 0.9% 1000 ML INJ 1,000 ML IV SCH ×2 (06:23→17:52)
[2017-05-22 06:52] LABS: AUTOMATED NEUTROPHIL # 6.3 TH/MM3 (1.8-7.7); BASOPHIL % 0.5 % (0.0-2.0); EOSINOPHIL # 0.4 TH/MM3 (0-0.4); EOSINOPHIL % 4.5 % (0.0-4.0); HEMO FLAGS DIFF FINAL; LYMPH % 11.4 % (9.0-44.0); MEAN CORPUSCULAR HEMOGLOBIN 30.7 PG (27.0-34.0); MEAN CORPUSCULAR HGB CONC 32.6 % (32.0-36.0); MONO % 12.6 % (0.0-8.0); PLATELET COUNT 229 TH/MM3 (150-450); POTASSIUM 3.8 MEQ/L (3.5-5.1); RED BLOOD COUNT 3.73 MIL/MM3 (4.50-5.90); RED CELL DISTRIBUTION WIDTH 13.1 % (11.6-17.2); WHITE BLOOD COUNT 8.9 TH/MM3 (4.0-11.0)
[2017-05-22] MEDS: DOCUSATE SODIUM 100 MG CAP PO SCH ×2 (09:00→21:00)
[2017-05-22] MEDS: SODIUM CHLORIDE 0.9% FLUSH 10 ML FLUSH IV FLUSH SCH ×2 (09:00→21:00)
[2017-05-22] MEDS: POLYETHYLENE GLYCOL 17 GM PKG PO SCH (09:00)
[2017-05-22] MEDS: CEFEPIME INJ 2,000 MG in SODIUM CHLORIDE 0.9% INJ 100 ML IV SCH (09:29)
[2017-05-22] MEDS: ACETAMINOPHEN 325 MG TAB PO PRN ×2 (10:19→17:58)
--- NOTE | 2017-05-22 12:58 | HHI.PR ---
Subjective Remarks Patient says he is feeling better today in terms of his diffuse abdominal pain, says his burning with urination is minimal. Only reports his hernia recurring after having a bowel movement, reports having adequate bowel movements daily now. Says he slept better with the Remeron that I started, discussed with nursing, no reports overnight Objective Vital Signs Date Time Temp Pulse Resp B/P (MAP) Pulse Ox O2 Delivery O2 Flow Rate FiO2 05/22/17 06:04 76 05/22/17 05:00 66 05/22/17 04:00 78 05/22/17 03:45 99.6 79 18 109/58 (75) 96 05/22/17 03:00 87 05/22/17 02:00 72 05/22/17 01:00 76 05/22/17 00:00 74 05/21/17 23:45 98.1 87 18 125/70 (88) 97 05/21/17 23:25 85 05/21/17 19:50 109 05/21/17 19:50 99.6 87 19 151/85 (107) 99 05/21/17 18:23 91 05/21/17 18:23 16 05/21/17 17:18 63 05/21/17 16:35 97.4 78 18 156/74 (101) 97 05/21/17 16:35 94 05/21/17 15:00 78 05/21/17 14:00 52 I/O 05/21/17 05/21/17 05/21/17 05/22/17 05/22/17 05/22/17 07:00 15:00 23:00 07:00 15:00 23:00 Intake Total 860 ml 1650 ml 646 ml Output Total 700 ml 900 ml Balance 160 ml 750 ml 646 ml Intake Oral 360 ml 450 ml 240 ml IV Total 500 ml 1200 ml 406 ml Output Urine Total 700 ml 900 ml # Bowel Movements 3 Result Diagram: 05/22/1733 05/22/17 0533 Objective Remarks GENERAL: No acute distress CARDIOVASCULAR: Regular rate and rhythm without murmurs, gallops, or rubs. GASTROINTESTINAL: Abdomen soft, minimal tenderness to deep palpation over entire abdomen, no rebound : Right-sided inguinal hernia, nontender testicles and overall nontender scrotum MUSCULOSKELETAL: No cyanosis, or edema. A/P Assessment and Plan 61-year-old white male being admitted for intractable abdominal pain. Clinically stable upon admission. had fever on rocephin, therefore cefepime as ordered as a replacement for complicated cystitis/pyelonephritis. 1) intractable abdominal pain - tolerable at this point - likely multifactorial , from complicated cystitis plus constipation plus hernia 2) complicated Cystitis - clinically improving, cultures growing gram-negative rods, blood culture growing Escherichia coli. Patient afebrile on cefepime, continue as IV for now 3) bacteremia Escherichia coli - suspect tract is the source, we'll follow up on urinary cultures to help determine source 3) constipation - continue aggressive po laxatives 4) scrotal swelling - less painful today, US demonstrated small right hydrocele , gen surg has plans for surgical intervention hopefully in the next 48 hours pending availability 5) depression -improving with Remeron DVT prophylaxis with Lovenox. Gilmar Abebe MD May 22, 2017 12:58
--- NOTE | 2017-05-22 13:27 | HHI.PR ---
Subjective Subjective Notes Resting in bed No complaints Objective Vitals/I&O Vital Signs Date Time Temp Pulse Resp B/P (MAP) Pulse Ox O2 Delivery O2 Flow Rate FiO2 05/22/17 11:00 98.2 75 16 139/75 (96) 100 05/20/17 06:28 Room Air Labs Laboratory Tests Test 05/22/17 05:33 White Blood Count 8.9 Red Blood Count 3.73 Hemoglobin 11.4 Hematocrit 35.0 Mean Corpuscular Volume 94.0 Mean Corpuscular Hemoglobin 30.7 Mean Corpuscular Hemoglobin Concent 32.6 Red Cell Distribution Width 13.1 Platelet Count 229 Mean Platelet Volume 8.2 Neutrophils (%) (Auto) 71.0 Lymphocytes (%) (Auto) 11.4 Monocytes (%) (Auto) 12.6 Eosinophils (%) (Auto) 4.5 Basophils (%) (Auto) 0.5 Neutrophils # (Auto) 6.3 Lymphocytes # (Auto) 1.0 Monocytes # (Auto) 1.1 Eosinophils # (Auto) 0.4 Basophils # (Auto) 0.0 CBC Comment DIFF FINAL Differential Comment Blood Urea Nitrogen 21 Creatinine 1.61 Random Glucose 92 Calcium Level 8.4 Sodium Level 139 Potassium Level 3.8 Chloride Level 110 Carbon Dioxide Level 22.0 Anion Gap 7 Estimat Glomerular Filtration Rate 44 Date/Time Source Procedure Growth Status 05/20/17 01:15 Blood Peripheral Aerobic Blood Culture - Preliminary NO GROWTH IN 2 DAYS Resulted 05/20/17 01:15 Anaerobic Blood Culture - Preliminary Gram Negative Glenn Resulted 05/20/17 03:00 Urine Clean Catch Urine Culture - Final Escherichia Coli Complete Cardiovascular: Regular Lungs: Clear Abdomen: Non-distended, Non-tender Extremities: No edema Narrative Exam RIGHT inguinal hernia---tender A/P Assessment and Plan 61 year old male with UTI and symptomatic RIGHT inguinal hernia repair -Plan for RIGHT inguinal hernia repair tomorrow -Obtain consents -NPO after MN -Hold anticoagulation Attending Note - Dr. Lala Discussed with patient; plan repair; he is agreeable The exam, history, and the medical decision-making described in the above note were completed with the assistance of the mid-level provider. I reviewed and agree with the findings presented. I attest that I had a [id number] encounter with the patient on the same day, and personally performed and documented my assessment and findings in the medical record. Shelby Boswell May 22, 2017 13:26 Cheng Lala MD Jun 05, 2017 17:19
[2017-05-22] MEDS: MIRTAZAPINE 15 MG TAB PO SCH (21:06)
[2017-05-23] MEDS: SODIUM CHLOR 0.9% 1000 ML INJ 1,000 ML IV SCH ×3 (02:23→22:23)
[2017-05-23 03:00] VITALS: BP 140/75; PULSE 76; RESP 18; TEMP 98; O2SAT 98
[2017-05-23 06:36] LABS: HEMATOCRIT 31.9 % (39.0-51.0); MEAN CELL VOLUME 93.2 FL (80.0-100.0); MEAN CORPUSCULAR HEMOGLOBIN 30.7 PG (27.0-34.0); MEAN CORPUSCULAR HGB CONC 32.9 % (32.0-36.0); PLATELET COUNT 231 TH/MM3 (150-450); RED BLOOD COUNT 3.42 MIL/MM3 (4.50-5.90); RED CELL DISTRIBUTION WIDTH 12.9 % (11.6-17.2); REVIEW FLAG FINAL
[2017-05-23 07:45] VITALS: BP 131/81; PULSE 82; RESP 16; TEMP 98.4; O2SAT 98
[2017-05-23] MEDS: DOCUSATE SODIUM 100 MG CAP PO SCH ×2 (09:00→22:17)
[2017-05-23] MEDS: POLYETHYLENE GLYCOL 17 GM PKG PO SCH (09:00)
[2017-05-23] MEDS: CEFEPIME INJ 2,000 MG in SODIUM CHLORIDE 0.9% INJ 100 ML IV SCH (09:08)
[2017-05-23] MEDS: SODIUM CHLORIDE 0.9% FLUSH 10 ML FLUSH IV FLUSH SCH ×2 (09:08→21:00)
--- NOTE | 2017-05-23 10:50 | HHI.PR ---
Subjective Remarks Patient says he feels okay, eating well, no nausea or vomiting, no dysuria. Abdominal pain is minimal. Was discovered that he is now bacteremic with Escherichia coli and he is not cleared for surgical intervention at this time to fix his inguinal hernia, Dr. Lala notified. Objective Vital Signs Date Time Temp Pulse Resp B/P (MAP) Pulse Ox O2 Delivery O2 Flow Rate FiO2 05/23/17 03:00 98.0 76 18 140/75 (96) 98 05/22/17 23:00 98.1 76 18 149/98 (115) 98 05/22/17 20:00 98.1 75 18 139/71 (93) 98 05/22/17 15:00 79 16 136/90 (105) 98 05/22/17 11:00 98.2 75 16 139/75 (96) 100 I/O 05/22/17 05/22/17 05/22/17 05/23/17 05/23/17 05/23/17 07:00 15:00 23:00 07:00 15:00 23:00 Intake Total 646 ml 240 ml 1242 ml Output Total 975 ml 1275 ml Balance 646 ml -735 ml -33 ml Intake Oral 240 ml 240 ml 67 ml IV Total 406 ml 1175 ml Output Urine Total 975 ml 1275 ml # Bowel Movements 1 0 Result Diagram: 05/23/17 0552 05/22/17 0533 Objective Remarks GENERAL: No acute distress CARDIOVASCULAR: Regular rate and rhythm without murmurs, gallops, or rubs. GASTROINTESTINAL: Abdomen soft, minimal tenderness to deep palpation over entire abdomen, no rebound : Mild right blas CVA tenderness to percussion, negative on the left MUSCULOSKELETAL: No cyanosis, or edema. A/P Assessment and Plan 61-year-old white male being admitted for intractable abdominal pain. Clinically stable upon admission. had fever on Rocephin, therefore cefepime as ordered as a replacement for complicated cystitis/pyelonephritis. 1) intractable abdominal pain - tolerable at this point - likely multifactorial , from complicated cystitis plus constipation plus hernia 2) complicated Cystitis - clinically improving, cultures growing gram-negative rods, blood culture growing Escherichia coli. Patient afebrile on cefepime, continue as IV for now. 3) bacteremia Escherichia coli - suspect tract is the source - likely tract is a source given Escherichia coli bacteriuria, continue cefepime, surgery delayed for the next 48 hours, repeat blood cultures ordered, if negative 2 days anticipated surgical intervention on 05/26 4) constipation - continue aggressive po laxatives 5) scrotal swelling - , US demonstrated small right hydrocele, gen surg has plans for surgical intervention hopefully in the next 48 hours pending clearance 6) depression - Remeron DVT prophylaxis with Lovenox. Gilmar Abebe MD May 23, 2017 10:50
[2017-05-23 11:00] VITALS: BP 144/74; PULSE 83; RESP 20; TEMP 98; O2SAT 95
--- NOTE | 2017-05-23 11:15 | HHI.PR ---
Subjective Subjective Notes Resting in bed ID consulted due to E.coli in blood Objective Vitals/I&O Vital Signs Date Time Temp Pulse Resp B/P (MAP) Pulse Ox O2 Delivery O2 Flow Rate FiO2 05/23/17 03:00 98.0 76 18 140/75 (96) 98 05/20/17 06:28 Room Air Labs Laboratory Tests Test 05/23/17 05:52 White Blood Count 7.0 Red Blood Count 3.42 Hemoglobin 10.5 Hematocrit 31.9 Mean Corpuscular Volume 93.2 Mean Corpuscular Hemoglobin 30.7 Mean Corpuscular Hemoglobin Concent 32.9 Red Cell Distribution Width 12.9 Platelet Count 231 Mean Platelet Volume 7.8 Date/Time Source Procedure Growth Status 05/20/17 01:15 Blood Peripheral Aerobic Blood Culture - Preliminary NO GROWTH IN 3 DAYS Resulted 05/20/17 01:15 Anaerobic Blood Culture - Final Escherichia Coli Resulted 05/20/17 03:00 Urine Clean Catch Urine Culture - Final Escherichia Coli Complete Cardiovascular: Regular Lungs: Clear Abdomen: Non-distended, Non-tender Extremities: No edema Narrative Exam RIGHT inguinal hernia---tender A/P Assessment and Plan 61 year old male with UTI and symptomatic RIGHT inguinal hernia repair -OR cancelled due to E.Coli -Plan for RIGHT inguinal hernia repair once medical stable -Heart Healthy diet Attending Note - Dr. Lala Need to let bacteremia clear to minimize risk of infection to mesh for repair Patient aware of this The exam, history, and the medical decision-making described in the above note were completed with the assistance of the mid-level provider. I reviewed and agree with the findings presented. I attest that I had a [id number] encounter with the patient on the same day, and personally performed and documented my assessment and findings in the medical record. Shelby Boswell May 23, 2017 11:15 Cheng Lala MD May 25, 2017 09:21
[2017-05-23] MEDS: ACETAMINOPHEN 325 MG TAB PO PRN (13:24)
[2017-05-23 20:00] VITALS: BP 161/85; PULSE 99; RESP 18; TEMP 97.7; O2SAT 97
[2017-05-23] MEDS: MIRTAZAPINE 15 MG TAB PO SCH (22:17)
[2017-05-24] VITALS: BP 134/69; PULSE 73; RESP 18; TEMP 98.5; O2SAT 96
[2017-05-24 08:00] VITALS: BP 166/87; PULSE 98; RESP 16; TEMP 97.4; O2SAT 98
[2017-05-24] MEDS: SODIUM CHLORIDE 0.9% FLUSH 10 ML FLUSH IV FLUSH SCH ×2 (08:55→20:27)
[2017-05-24] MEDS: DOCUSATE SODIUM 100 MG CAP PO SCH ×2 (08:55→20:27)
[2017-05-24] MEDS: POLYETHYLENE GLYCOL 17 GM PKG PO SCH (08:55)
[2017-05-24] MEDS: SODIUM CHLOR 0.9% 1000 ML INJ 1,000 ML IV SCH (08:56)
[2017-05-24] MEDS: CEFEPIME INJ 2,000 MG in SODIUM CHLORIDE 0.9% INJ 100 ML IV SCH (08:57)
[2017-05-24 12:00] VITALS: BP 143/77; PULSE 87; RESP 16; TEMP 98.3; O2SAT 97
--- NOTE | 2017-05-24 13:21 | HHI.PR ---
Subjective Remarks nursing stated that the patient did not want to be operated on this morning. Patient says he feels good. Says he passed a stone last night. Denies abdominal pain or dysuria. Repeat blood cultures have been negative 1 day. Objective Vital Signs Date Time Temp Pulse Resp B/P (MAP) Pulse Ox O2 Delivery O2 Flow Rate FiO2 05/24/17 12:00 98.3 87 16 143/77 (99) 97 05/24/17 08:00 97.4 98 16 166/87 (113) 98 05/24/17 00:00 98.5 73 18 134/69 (90) 96 05/23/17 20:00 97.7 99 18 161/85 (110) 97 I/O 05/23/17 05/23/17 05/23/17 05/24/17 05/24/17 05/24/17 06:59 14:59 22:59 06:59 14:59 22:59 Intake Total 1242 ml 360 ml 1554 ml Output Total 1275 ml Balance -33 ml 360 ml 1554 ml Intake Oral 67 ml 360 ml IV Total 1175 ml 1554 ml Output Urine Total 1275 ml # Voids 5 # Bowel Movements 0 1 Result Diagram: 05/23/17 0552 05/22/17 0533 Objective Remarks GENERAL: No acute distress GASTROINTESTINAL: Abdomen soft, nondistended, nontender, suprapubic nontender, right-sided inguinal hernia mildly sore palpation : Minimal right blas CVA tenderness to percussion, negative on the left A/P Assessment and Plan 61-year-old white male being admitted for intractable abdominal pain. Clinically stable upon admission. had fever on Rocephin, therefore cefepime as ordered as a replacement for complicated cystitis/pyelonephritis. 1) intractable abdominal pain - resolved, 2) pyelonephritis with nephrolithiasis- clinically improving, urine culture growing Escherichia coli that is pansensitive 3) bacteremia Escherichia coli - suspect tract is the source -original cultures are growing Escherichia coli that is pansensitive. Repeat blood cultures drawn are currently at 1 day with no growth 4) constipation - continue aggressive po laxatives 5) scrotal swelling - , right-sided inguinal hernia with small hydrocele - Patient deciding does not want to be operated on for right inguinal hernia, wants a second opinion. Discussed with general surgery team, stated the patient can get his hernia repaired as an outpatient surgery, no other surgeons from the group would be available to operate on him at this time. States the patient is stable for discharge otherwise. 6) depression - Remeron DVT prophylaxis with Lovenox. Plan is to discharge patient on 05/25 if repeat set of blood cultures are no growth 2 days. We'll need oral antibiotics for 2 weeks which will cover bacteremia and pyelonephritis. Gilmar Abebe MD May 24, 2017 13:21
[2017-05-24] MEDS ORDERED: MIRTA15 PO (13:22)
[2017-05-24] MEDS ORDERED: LEVO750T3 PO (13:22)
[2017-05-24 15:46] VITALS: BP 126/70; PULSE 80; RESP 16; TEMP 98.1; O2SAT 97
[2017-05-24] MEDS ORDERED: LEVOFLOXACIN 750 MG TAB PO SCH (17:00)
[2017-05-24 20:00] VITALS: BP 122/61; PULSE 87; RESP 20; TEMP 97.6; O2SAT 98
[2017-05-24] MEDS: MIRTAZAPINE 15 MG TAB PO SCH (20:27)
[2017-05-25] VITALS: BP 124/78; PULSE 56; RESP 20; TEMP 97.7; O2SAT 95
[2017-05-25 08:00] VITALS: BP 125/77; PULSE 98; RESP 19; TEMP 99.6; O2SAT 96
[2017-05-25] MEDS: DOCUSATE SODIUM 100 MG CAP PO SCH (08:10)
[2017-05-25] MEDS: POLYETHYLENE GLYCOL 17 GM PKG PO SCH (08:10)
[2017-05-25] MEDS: SODIUM CHLORIDE 0.9% FLUSH 10 ML FLUSH IV FLUSH SCH (08:11)
--- NOTE | 2017-05-25 09:17 | HHI.PR ---
Subjective Subjective Notes Patient refused surgery yesterday; states that he yelled at me and I yelled back. Objective Vitals/I&O Vital Signs Date Time Temp Pulse Resp B/P (MAP) Pulse Ox O2 Delivery O2 Flow Rate FiO2 05/25/17 08:00 99.6 98 19 125/77 (93) 96 Labs Date/Time Source Procedure Growth Status 05/23/17 12:20 Blood Peripheral Aerobic Blood Culture - Preliminary NO GROWTH IN 1 DAY Resulted 05/23/17 12:20 Blood Peripheral Anaerobic Blood Culture - Preliminary NO GROWTH IN 1 DAY Resulted 05/20/17 03:00 Urine Clean Catch Urine Culture - Final Escherichia Coli Complete A/P Assessment and Plan Symptomatic, but easily reducible Right inguinal hernia. My nurse practitioner was in the room on 05/23 with myself and the patient; no raised voices on either side were witnessed. He seemed very agreeable to surgery on 05/24 as planned. Not clear why patient has this recollection and refused surgery by me Offered options of different surgical group to primary physician as alternative As hernia is reducible, there is not an emergent need for surgery and patient may be discharged home. Cheng Lala MD May 25, 2017 09:17
--- NOTE | 2017-05-25 11:23 | HHI.PR ---
Subjective Remarks resting comfortably with no distress. no new complaints and wants to go home today. Objective Vitals Vital Signs Date Time Temp Pulse Resp B/P (MAP) Pulse Ox O2 Delivery O2 Flow Rate FiO2 05/25/17 08:00 99.6 98 19 125/77 (93) 96 05/25/17 00:00 97.7 56 20 124/78 (93) 95 05/24/17 20:00 97.6 87 20 122/61 (81) 98 05/24/17 15:46 98.1 80 16 126/70 (88) 97 05/24/17 12:00 98.3 87 16 143/77 (99) 97 I/O 05/24/17 05/24/17 05/24/17 05/25/17 05/25/17 05/25/17 06:59 14:59 22:59 06:59 14:59 22:59 Intake Total 1554 ml 698 ml 1440 ml 240 ml Balance 1554 ml 698 ml 1440 ml 240 ml Intake Oral 1440 ml 240 ml IV Total 1554 ml 698 ml # Voids 2 3 # Bowel Movements 2 1 Result Diagram: 05/23/17 0552 05/22/17 0533 Imaging Last Impressions Abdomen/Pelvis CT 05/20/17 0103 Signed Impressions: Service Date/Time: Saturday, May 20, 2017 01:31 - CONCLUSION: 1. Atrophic left kidney with moderate hydronephrosis, slightly improved from April 14. Previous left ureteral calculi no longer visualized. Additional bilateral nonobstructing renal calculi. 2. Right inguinal hernia with bowel and the proximal inguinal canal, improved in appearance from April 14. 3. No bowel obstruction. Mild ileus. Mild constipation. 4. Moderate to severe scoliosis. 5. Small hiatal hernia. Paul Hylton MD Scrotum Ultrasound 05/20/17 0000 Signed Impressions: Service Date/Time: Saturday, May 20, 2017 09:54 - CONCLUSION: 1. Right inguinal hernia containing bowel and fluid 2. No intratesticular mass. 3. Small right hydrocele. Zach Knott MD Objective Remarks GENERAL: This is a well-nourished, well-developed patient, in no apparent distress. CARDIOVASCULAR: Regular rate and regular rhythm without murmurs, gallops, or rubs. RESPIRATORY: Clear to auscultation. Breath sounds equal bilaterally. No wheezes , rales, or rhonchi. GASTROINTESTINAL: Abdomen soft, non-tender, nondistended. Normal, active bowel sounds MUSCULOSKELETAL: Extremities without clubbing, cyanosis, or edema. NEURO: Alert & Oriented x4 to person, place, time, situation. Moves all ext x4 Procedures none Medications and IVs Current Medications Sodium Chloride 1,000 ml @ 1,000 mls/hr Q1H IV Last administered on 05/20/17 01:12; Start 05/20/17 at 01:03; Stop 05/20/17 at 02:02; Status DC Sodium Chloride (NS Flush) 2 ml UNSCH PRN IV FLUSH FLUSH AFTER USING IV ACCESS ; Start 05/20/17 at 01:15; Stop 05/20/17 at 04:33; Status DC Ketorolac Tromethamine (Toradol Inj) 30 mg ONCE ONCE IVP Last administered on 05/20/17 01:13; Start 05/20/17 at 01:15; Stop 05/20/17 at 01:16; Status DC Ceftriaxone Sodium 1000 mg/ Sodium Chloride 100 ml @ 200 mls/hr ONCE ONCE IV Last administered on 05/20/17 05:11; Start 05/20/17 at 04:15; Stop 05/20/17 at 04:44; Status DC Heparin Sodium (Porcine) (Heparin Inj) 5,000 units ONCE ONCE IV ; Start at 04:15; Stop 05/20/17 at 04:18; Status DC Heparin Sodium (Porcine) (Heparin Inj) 5,000 units UNSCH PRN IV APTT LESS THAN 25; Start 05/20/17 at 10:15; Stop 05/21/17 at 15:31; Status DC Heparin Sodium (Porcine) (Heparin Inj) 2,500 units UNSCH PRN IV APTT 25 TO 39; Start 05/20/17 at 10:15; Stop 05/21/17 at 15:31; Status DC Heparin Sodium/ Dextrose 250 ml @ 0 mls/hr TITRATE IV ; Start 05/20/17 at 04:15 ; Stop 05/21/17 at 15:31; Status DC Ceftriaxone Sodium 1000 mg/ Sodium Chloride 100 ml @ 200 mls/hr Q24H IV ; Start 05/21/17 at 06:00; Stop 05/21/17 at 06:00; Status DC Sodium Chloride 1,000 ml @ 100 mls/hr Q10H IV Last administered on 05/24/17 08:56; Start 05/20/17 at 04:23; Stop 05/24/17 at 13:23; Status DC Sodium Chloride (NS Flush) 2 ml UNSCH PRN IV FLUSH FLUSH AFTER USING IV ACCESS Last administered on 05/22/17 17:54; Start 05/20/17 at 04:30 Sodium Chloride (NS Flush) 2 ml BID IV FLUSH Last administered on 05/25/17 08: 11; Start 05/20/17 at 09:00 Ondansetron HCl (Zofran Inj) 4 mg Q6H PRN IVP NAUSEA OR VOMITING; Start at 04:30; Stop 05/20/17 at 09:35; Status DC Acetaminophen (Tylenol) 650 mg Q6H PRN PO FEVER/PAIN SCALE 1 TO 2 Last administered on 05/23/17 13:24; Start 05/20/17 at 04:30 Acetaminophen/ Hydrocodone Bitart ([place] 5-325 Mg) 1 tab Q4H PRN PO PAIN SCALE 3 TO 5 Last administered on 05/22/17 02:31; Start 05/20/17 at 04:30; Stop 05/22/17 at 08:43; Status DC Hydromorphone HCl (Dilaudid Pf Inj) 1 mg Q3H PRN IV Pain 6-10 Last administered on 05/20/17 07:15; Start 05/20/17 at 04:30; Stop 05/20/17 at 09:35 ; Status DC Senna/Docusate Sodium (Ritika-Colace) 1 tab BID PO Last administered on 09:22; Start 05/20/17 at 09:00; Stop 05/22/17 at 08:43; Status DC Magnesium Hydroxide (Milk Of Magnesia Liq) 30 ml Q12H PRN PO MILD - MODERATE CONSTIPATION; Start 05/20/17 at 04:30; Stop 05/20/17 at 09:35; Status DC Sennosides (Senokot) 17.2 mg Q12H PRN PO MODERATE - SEVERE CONSTIPATION; Start 05/20/17 at 04:30; Stop 05/20/17 at 09:35; Status DC Bisacodyl (Dulcolax Supp) 10 mg DAILY PRN RECTAL SEVERE CONSITIPATION; Start at 04:30; Stop 05/20/17 at 09:35; Status DC Lactulose (Lactulose Liq) 30 ml DAILY PRN PO SEVERE CONSITIPATION; Start at 04:30; Stop 05/20/17 at 09:35; Status DC Glycerin (Glycerin Adult Supp) 2 gm ONCE ONCE RECTAL Last administered on 05/20 11:41; Start 05/20/17 at 09:45; Stop 05/20/17 at 10:40; Status DC Polyethylene Glycol (Miralax) 17 gm DAILY PO Last administered on 05/20/17 11: 11; Start 05/20/17 at 10:45 Enoxaparin Sodium (Lovenox Inj) 30 mg Q24H SQ Last administered on 05/21/17 11 :00; Start 05/20/17 at 11:00; Stop 05/22/17 at 13:46; Status DC Sodium Biphosphate/ Sodium Phosphate (Fleets Enema (Adult)) 133 ml ONCE ONCE RECTAL Last administered on 05/20/17 11:11; Start 05/20/17 at 09:45; Stop at 10:40; Status DC Lorazepam (Ativan Inj) 1 mg ONCE ONCE IV PUSH Last administered on 05/20/17 18:51; Start 05/20/17 at 18:30; Stop 05/20/17 at 18:44; Status DC Haloperidol Lactate (Haldol Inj) 2 mg ONCE PRN IM AGITATION; Start 05/20/17 at 18:30; Stop 05/20/17 at 23:00; Status DC Cefepime HCl 2000 mg/Sodium Chloride 100 ml @ 200 mls/hr DAILY IV Last administered on 05/24/17 08:57; Start 05/20/17 at 18:45; Stop 05/24/17 at 13:15 ; Status DC Sodium Chloride 1,000 ml @ 999 mls/hr BOLUS ONCE IV Last administered on 05/20 18:51; Start 05/20/17 at 18:45; Stop 05/20/17 at 19:45; Status DC Mirtazapine (Remeron) 15 mg HS PO Last administered on 05/24/17 20:27; Start 05/21/17 at 21:00 Docusate Sodium (Colace) 100 mg BID PO Last administered on 05/24/17 20:27; Start 05/22/17 at 09:00 Levofloxacin (Levaquin) 750 mg Q48H PO Last administered on 05/24/17 16:49; Start 05/24/17 at 17:00 A/P Assessment and Plan 1) intractable abdominal pain - resolved, 2) pyelonephritis with nephrolithiasis- clinically improving, urine culture growing Escherichia coli that is pansensitive 3) bacteremia Escherichia coli - suspect tract is the source -original cultures are growing Escherichia coli that is pansensitive. Repeat blood cultures from 05/23/17 negative. 4) constipation - continue aggressive po laxatives 5) scrotal swelling - , right-sided inguinal hernia with small hydrocele - Patient deciding does not want to be operated on for right inguinal hernia, wants a second opinion. previously discussed with general surgery team, stated the patient can get his hernia repaired as an outpatient surgery, no other surgeons from the group would be available to operate on him at this time. States the patient is stable for discharge otherwise. 6) depression - Remeron (7) chronic renal insufficiency- stable- f/u as outpatient. DVT prophylaxis with Lovenox. Discharge Planning dc home with f/u with pcp and surgery. see med list. d/w the patient. Liberty Chavez MD May 25, 2017 11:23
--- NOTE | 2017-05-25 11:25 | HHI.DS ---
Discharge Summary Admission Date May 20, 2017 at 04:23 Discharge Date: May 25, 2017 Admitting Diagnosis intractable abd pain (1) UTI (urinary tract infection) ICD Code: N39.0 - Urinary tract infection, site not specified Diagnosis: Principal Status: Acute (2) Intractable abdominal pain ICD Code: R10.9 - Unspecified abdominal pain Diagnosis: Principal Status: Acute (3) Marfan syndrome ICD Code: Q87.40 - Marfan's syndrome, unspecified Diagnosis: Secondary Status: Acute (4) Chronic Renal Failure / insufficiency, unspec Status: Chronic (5) Scrotal swelling ICD Code: N50.89 - Other specified disorders of the male genital organs Diagnosis: Principal Status: Acute Procedures none Brief History - From Admission 61-year-old white male was in his usual state of health until about 2-3 days ago when he developed lower abdominal pain and dysuria. He states that the pain originally started on his left abdomen, felt sharp and colicky in nature. Was originally tolerable as long as he laid still, but when he moved around the pain got substantially worse and became intolerable over the next few days leading him to come to the emergency room. He says that the pain did radiate over to his mid abdomen and also down to his right testicle, and now has a diffuse abdominal soreness with a focus in the epigastrium. Denies nausea vomiting but does report having no appetite. Reports feeling feverish with chills and sick overall. Does not have distention of blas back pain, denies hematuria. Says that this pain feels the first time he had kidney stones, different from his most recent admission for pyelonephritis about a month ago. Since his last admission, the patient states that he did take whatever antibiotic he was prescribed (which by chart appears to be ciprofloxacin but the patient adamantly denies that it was Cipro since he has a reported allergy to it). He had been pain free since his last hospitalization discharge up until this acute presentation a few days ago. He does report that his right groin hernia has had increased pain during this time as well. Denies any changes in his urinary habits apart from dysuria. Does report having decreased bowel movements since 4 days ago which is not normal for him. Says he did not take any medications to treat the pain over the past few days and denies taking any medications for that matter regularly. Does report trying to drink some water but has barely eaten due to anorexia. He denies any chest pain or shortness of breath. CBC/BMP: 05/23/17 0552 05/22/17 0533 Significant Findings Laboratory Tests Test 05/23/17 05:52 Red Blood Count 3.42 MIL/MM3 (4.50-5.90) Hemoglobin 10.5 GM/DL (13.0-17.0) Hematocrit 31.9 % (39.0-51.0) Imaging Last Impressions Abdomen/Pelvis CT 05/20/17 0103 Signed Impressions: Service Date/Time: Saturday, May 20, 2017 01:31 - CONCLUSION: 1. Atrophic left kidney with moderate hydronephrosis, slightly improved from April 14. Previous left ureteral calculi no longer visualized. Additional bilateral nonobstructing renal calculi. 2. Right inguinal hernia with bowel and the proximal inguinal canal, improved in appearance from April 14. 3. No bowel obstruction. Mild ileus. Mild constipation. 4. Moderate to severe scoliosis. 5. Small hiatal hernia. Paul Hylton MD Scrotum Ultrasound 05/20/17 0000 Signed Impressions: Service Date/Time: Saturday, May 20, 2017 09:54 - CONCLUSION: 1. Right inguinal hernia containing bowel and fluid 2. No intratesticular mass. 3. Small right hydrocele. Zach Knott MD PE at Discharge GENERAL: This is a well-nourished, well-developed patient, in no apparent distress. CARDIOVASCULAR: Regular rate and regular rhythm without murmurs, gallops, or rubs. RESPIRATORY: Clear to auscultation. Breath sounds equal bilaterally. No wheezes , rales, or rhonchi. GASTROINTESTINAL: Abdomen soft, non-tender, nondistended. Normal, active bowel sounds MUSCULOSKELETAL: Extremities without clubbing, cyanosis, or edema. NEURO: Alert & Oriented x4 to person, place, time, situation. Moves all ext x4 Hospital Course 1) intractable abdominal pain - resolved, 2) pyelonephritis with nephrolithiasis- clinically improving, urine culture growing Escherichia coli that is pansensitive 3) bacteremia Escherichia coli - suspect tract is the source -original cultures are growing Escherichia coli that is pansensitive. Repeat blood cultures from 05/23/17 negative. 4) constipation - continue aggressive po laxatives 5) scrotal swelling - , right-sided inguinal hernia with small hydrocele - Patient deciding does not want to be operated on for right inguinal hernia, wants a second opinion. previously discussed with general surgery team, stated the patient can get his hernia repaired as an outpatient surgery, no other surgeons from the group would be available to operate on him at this time. States the patient is stable for discharge otherwise. 6) depression - Remeron (7) chronic renal insufficiency- stable- f/u as outpatient. DVT prophylaxis with Lovenox. Pt Condition on Discharge: Good Discharge Disposition: Discharge Home Discharge Time: <= 30 minutes Discharge Instructions DIET: Follow Instructions for: Heart Healthy Diet Activities you can perform: Regular-No Restrictions Follow up Referrals: PCP Follow-up Surgical New Medications: Levofloxacin (Levofloxacin) 750 Mg Tablet 750 MG PO Q48H for Infection, #7 TAB 0 Refills Mirtazapine (Mirtazapine) 15 Mg Tab 15 MG PO HS for Anxiety and/or Insomnia, #30 TAB Liberty Chavez MD May 25, 2017 11:25
[2017-05-25 12:00] VITALS: BP 146/65; PULSE 98; RESP 17; TEMP 97.2; O2SAT 96
== END 2017-05-25 12:44 | disposition home or self-care (01) | DRG 690 ==
LOC: NEPE 00:49 → NEDA 04:23 → NEDH 08:56 → HCIS 13:04 → N07A 05-23 14:36
PROVIDERS: ADMIT Internal Medicine; ATTEND Internal Medicine
DX: N13.6 Pyonephrosis (principal); R78.81 Bacteremia; Q87.40 Marfan syndrome, unspecified; J44.9 Chronic obstructive pulmonary disease, unspecified; F31.9 Bipolar disorder, unspecified; F41.9 Anxiety disorder, unspecified; K21.9 Gastro-esophageal reflux disease without esophagitis; F17.210 Nicotine dependence, cigarettes, uncomplicated; G47.00 Insomnia, unspecified; K40.90 Unilateral inguinal hernia, without obstruction or gangrene, not specified as recurrent; K59.00 Constipation, unspecified; I49.1 Atrial premature depolarization; N50.89 Other specified disorders of the male genital organs; B96.20 Unspecified Escherichia coli [E. coli] as the cause of diseases classified elsewhere; N20.0 Calculus of kidney; N18.9 Chronic kidney disease, unspecified; Z86.711 Personal history of pulmonary embolism
CPT/HCPCS: 74176; 76870; 76937; 80048; 80053; 81001; 83605; 83690; 84145; 85025; 85027; 85610; 85730; 87040; 87077; 87086; 87186; 87205; 93005; 93306; 93975; 96374; J0692; J0696; J1170; J1650; J1885; J2060; J7030

== ENCOUNTER 2018-04-14 01:21 | Observation (INO) ==
--- NOTE | 2018-04-14 01:56 | ED ---
HPI General Chief complaint: Psychiatric Symptoms Stated complaint: behavioral Time Seen by Provider: 04/14/18 01:41 History of Present Illness HPI narrative: This is a 62-year-old male with history of COPD, Marfan syndrome , presents via EMS for evaluation of chest pain, dyspnea and syncope. He reports that his apartment building was condemned today. He was moving stuff out of his apartment, walking up the stairs, when he developed sudden onset chest pain, dyspnea and he had a syncopal event. He describes the pain as a tightness in his chest which is constant, aggravated with exertion with no relieving factors. Symptoms have been present since this afternoon. Endorses some nausea as well as dizziness. He has never had this problem before. He reports history of COPD, Marfan syndrome, chronic kidney disease. He reports that he had pulmonary embolism when he was in his 20s. Denies any abdominal pain, leg swelling or leg pain. He has never had symptoms like this before. No other complaints. Related Data Home Medications Medication Instructions Recorded Confirmed No Known Home Medications 04/14/18 04/14/18 Allergies Allergy/AdvReac Type Severity Reaction Status Date / Time ciprofloxacin Allergy Severe Unverified 05/20/17 00:57 penicillin G Allergy Severe muscle Unverified 05/20/17 00:57 weakness meperidine AdvReac Severe Hallucinati Unverified 05/20/17 00:57 ons Review of Systems Except as stated in HPI: all other systems reviewed are negative [facility] Medical History Medical History Blood clot in vein (Acute) COPD (chronic obstructive pulmonary disease) (Acute) Chest pain (Acute) Marfan syndrome (Acute) Social History Social History Substance History: No History of Abuse Smoking Status: Smoker, status unknown Tobacco Type: Cigarettes How Often Do You Have a Drink Containing Alcohol: Monthly or less Recent Travel in [facility] within the Last 8 Weeks: No Recent Out of Country Travel within the Last 8 Weeks: No Exam Narrative Exam Narrative: GENERAL: This is an elderly male who appears uncomfortable on initial examination. He is tachypneic. SKIN: Warm and dry. HEAD: Atraumatic. Normocephalic. EYES: Pupils equal and round. No scleral icterus. No injection or drainage. ENT: No nasal bleeding or discharge. Mucous membranes pink and moist. NECK: Trachea midline. No JVD. CARDIOVASCULAR: Regular rate and rhythm. No murmur appreciated. RESPIRATORY: No accessory muscle use. Clear to auscultation. Breath sounds equal bilaterally. GASTROINTESTINAL: Abdomen soft, non-tender, nondistended. Hepatic and splenic margins not palpable. MUSCULOSKELETAL: No obvious deformities. No clubbing. No cyanosis. No edema. NEUROLOGICAL: Awake and alert. No obvious cranial nerve deficits. Motor grossly within normal limits. Normal speech. Course Initial Documented Vital Signs Temperature 98.4 F 04/14/18 01:31 Pulse Rate 87 04/14/18 01:31 Respiratory Rate 22 04/14/18 01:31 Blood Pressure 156/82 H 04/14/18 01:31 Pulse Oximetry 97 04/14/18 01:31 Last Documented Vital Signs Temperature 98.4 F 04/14/18 01:31 Pulse Rate 81 04/14/18 04:28 Respiratory Rate 15 04/14/18 04:28 Blood Pressure 149/83 H 04/14/18 04:28 Pulse Oximetry 97 04/14/18 04:28 Medical Decision Making MDM Narrative Medical decision making narrative: The patient was placed on ECG monitoring pulse oximetry. A 12 EKG has been ordered. Lab work, chest x-ray, CTA, aspirin , bilateral blood pressure monitoring is been ordered. The patient will be moved from fast track into medical bed, Dr. Reed will assume care. Differential Diagnosis Differential Diagnosis: Aortic dissection, acute coronary syndrome, unstable angina, pulmonary embolism, anxiety, panic attack, spontaneous pneumothorax, pericarditis, myocarditis Lab Data Result diagrams: 04/14/18 01:55 04/14/18 01:55 Lab Results 04/14/18 04/14/18 04/14/18 Range/Units 01:55 01:55 01:55 WBC 8.6 (4.0-11.0) th/mm3 RBC 4.62 (4.50-5.90) mil/mm3 Hgb 14.5 (13.0-17.0) gm/dL Hct 43.6 (39.0-51.0) % MCV 94.4 (80.0-100.0) fL MCH 31.3 (27.0-34.0) pg MCHC 33.2 (32.0-36.0) % RDW 13.4 (11.6-17.2) % Plt Count 310 (150-450) th/mm3 MPV 7.8 (7.0-11.0) fL Neut % (Auto) 78.2 H (16.0-70.0) % Lymph % (Auto) 13.9 (9.0-44.0) % Ballard % (Auto) 6.7 (0.0-8.0) % Eos % (Auto) 0.3 (0.0-4.0) % Baso % (Auto) 0.9 (0.0-2.0) % Neut # (Auto) 6.7 (1.8-7.7) th/mm3 Lymph # (Auto) 1.2 (1.0-4.8) th/mm3 Ballard # (Auto) 0.6 (0.0-0.9) th/mm3 Eos # (Auto) 0.0 (0.0-0.4) th/mm3 Baso # (Auto) 0.1 (0.0-0.2) th/mm3 WBC Differential . Differential Comment Auto diff final PT 9.9 (9.8-11.6) sec INR 1.0 Ratio APTT 24.5 (24.3-30.1) sec Sodium 142 (136-145) meq/L Potassium 4.5 (3.5-5.1) meq/L Chloride 111 H (98-107) meq/L Carbon Dioxide 17.9 L (21.0-32.0) meq/L Anion Gap 13 (5-15) meq/L BUN 21 H (7-18) mg/dL Creatinine 2.12 H (0.60-1.30) mg/dL Estimated GFR 32 L (>89) mL/min Random Glucose 117 H (74-106) mg/dL Calcium 9.5 (8.5-10.1) mg/dL Magnesium 2.0 (1.5-2.5) mg/dL Total Creatine Kinase 125 (39-308) U/L CK-MB (CK-2) 1.6 (0.5-3.6) ng/mL Troponin I Less than 0.02 L (0.02-0.05) ng/mL Imaging Data Radiologist's impression: Chest X-Ray 04/14/18 01:48 CONCLUSION: Negative examination. Discharge Plan Discharge Disposition Patient Disposition: 30 Still Patient Discharge Details Diagnosis: Chest pain Physicians Team ED Provider: Yang Reed ED Midlevel Provider: Ryan Mederos Primary Care Provider: Primary Care Marycarmen Washington Attending Provider: Ashu Bernard Discharge Interventions Interventions: Vital Signs Last Done: 04/14/18 01:37 Status ED Status: Admitted Observation Patient
--- NOTE | 2018-04-14 02:10 | XR ---
EXAM DATE: 04/14/2018 2:02 AM EDT AGE/SEX: 62 years / Male INDICATIONS: Chest pain. CLINICAL DATA: This is the patient's initial encounter. Patient reports that signs and symptoms have been present for 1 day and indicates a pain score of 9/10. MEDICAL/SURGICAL HISTORY: . Gastroesophageal reflux disease. Migraine. Asthma. Renal disease. Kidney stones. Urinary tract infection. Depression. Anxiety. . SURGICAL HISTORY : Tonsillectomy. C7 fusion. Colostomy. Bowel resection. Ureteral stents. ESWL. Neck surgery. COMPARISON: No prior exams available for comparison. FINDINGS: A single AP view of the chest demonstrates the lungs to be symmetrically aerated without evidence of mass, infiltrate or effusion. The cardiomediastinal contours are unremarkable. Osseous structures a re intact. CONCLUSION: Negative examination. Electronically signed by: Tevin Montana MD 04/14/2018 2:09 AM EDT
[2018-04-14 02:11] LABS: Baso # (Auto) 0.1 th/mm3 (0.0-0.2); Baso % (Auto) 0.9 % (0.0-2.0); Eos % (Auto) 0.3 % (0.0-4.0); Hematocrit 43.6 % (39.0-51.0); Hemoglobin 14.5 gm/dL (13.0-17.0); Lymph # (Auto) 1.2 th/mm3 (1.0-4.8); Lymph % (Auto) 13.9 % (9.0-44.0); Mean Corpuscular HGB Conc 33.2 % (32.0-36.0); Mean Corpuscular Hemoglobin 31.3 pg (27.0-34.0); Mean Corpuscular Volume 94.4 fL (80.0-100.0); Mean Platelet Volume 7.8 fL (7.0-11.0); Mono # (Auto) 0.6 th/mm3 (0.0-0.9); Mono % (Auto) 6.7 % (0.0-8.0); Neut # (Auto) 6.7 th/mm3 (1.8-7.7); Neut % (Auto) 78.2 % (16.0-70.0); Platelet Count 310 th/mm3 (150-450); Red Blood Count 4.62 mil/mm3 (4.50-5.90); Red Cell Distribution Width 13.4 % (11.6-17.2); White Blood Count 8.6 th/mm3 (4.0-11.0)
[2018-04-14 02:20] LABS: Activated Partial Thrombo Time 24.5 sec (24.3-30.1); Prothrombin Time 9.9 sec (9.8-11.6)
[2018-04-14 02:25] LABS: Anion Gap 13 meq/L (5-15); Blood Urea Nitrogen 21 mg/dL (7-18); Calcium 9.5 mg/dL (8.5-10.1); Carbon Dioxide 17.9 meq/L (21.0-32.0); Chloride 111 meq/L (98-107); Glomerular Filtration Rate 32 mL/min (>89); Glucose,Random 117 mg/dL (74-106); Potassium 4.5 meq/L (3.5-5.1); Sodium 142 meq/L (136-145)
[2018-04-14 02:29] LABS: Creatine Kinase 125 U/L (39-308)
[2018-04-14 02:41] LABS: Creatine Kinase MB 1.6 ng/mL (0.5-3.6)
[2018-04-14] MEDS ORDERED: Sod Chloride 0.9% Inj 1,000 ML IV.SIG ONE (04:06)
[2018-04-14 07:30] LABS: Creatine Kinase 103 U/L (39-308)
[2018-04-14] MEDS ORDERED: Acetaminophen 500 MG Tablet PO PRN (07:44)
--- NOTE | 2018-04-14 08:13 | ECG ---
Date Performed: 04/14/2018 Time Performed: 06:29:22 PTAGE: 62 years EKG: Sinus rhythm NONSPECIFIC T-WAVE ABNORMALITY BORDERLINE ECG NO PREVIOUS TRACING DOCTOR: Alysa Hadley Interpretating Date/Time 04/14/2018 08:13:14
--- NOTE | 2018-04-14 08:17 | ECG ---
Date Performed: 04/14/2018 Time Performed: 02:11:01 PTAGE: 62 years EKG: Sinus rhythm NONSPECIFIC T-WAVE ABNORMALITY BORDERLINE ECG PREVIOUS TRACING : 05/20/2017 03.04 DOCTOR: Alysa Hadley Interpretating Date/Time 04/14/2018 08:15:26
--- NOTE | 2018-04-14 09:18 | P.HPCA ---
History of Present Illness Primary Care Physician: No Primary Care Physician Chief Complaint: Chest pain History of Present Illness: 62 year old male with history of COPD since the ER for further evaluation pain and dyspnea. Onset yesterday afternoon. Reports his recently being condemned and he was moving out yesterday. After walking up and down stairs multiple times began to feel ill and nauseous. Laid down, states he "blacked out" during this time. Duration unknown. Upon awakening developed substernal chest pain. Characterizes pressure. No radiation. Moderate severity. Associated symptoms include dyspnea and hurt to take a deep breath. Duration constant. Denied nausea, vomiting, or diaphoresis. Denies similar pain in the past. Precipitating factors he relates to recent stress of having to relocate. Relieving factors none. No recent illness or fever. Tearful during exam. - Diagnosis (1) Chest pain of unknown etiology Inpatient Certification: I certify that the inpatient services were ordered in accordance with Medicare regulations governing the order. This includes certification that hospital inpatient services are reasonable and necessary and in the case of services not specified as inpatient-only under 42 CFR 419.22(n), that they are appropriately provided as inpatient services in accordance to with the 2-midnight benchmark under 43 CFR 412.3(e) Estimated Total Length of Stay (Days): 1 Plans for Post Hospital Care: Home Review of Systems All other systems reviewed negative except as stated in HPI PMFSH - History History Provided By: Patient - Medical History Medical History: Medical History (Last Updated 04/14/18 @ 01:57 by Paresh Hughes) Blood clot in vein COPD (chronic obstructive pulmonary disease) Chest pain Marfan syndrome - Tobacco History Second Hand Smoke Exposure: No (pt quit yrs ago) Tobacco Use In Past 30 Days: No Smoking Status: Former smoker Tobacco Type: Cigarettes - Alcohol History How Often Do You Have a Drink Containing Alcohol: Never - Substance Use History Substance History: Past History - Travel History Recent Travel in the [place] Within the Last 8 Weeks: No Recent Travel Out of the Country Within the Last 8 Weeks: No - Immunization History Tetanus Immunization: >5 Years Hx Influenza Vaccine This Season: No Medications and Allergies Active Medications: Active Medications Acetaminophen (Tylenol) 500 mg PO Q4H PRN PRN Reason: HEADACHE Nitroglycerin (Nitrostat Sl) 0.4 mg SL Q5M PRN PRN Reason: CHEST PAIN Sodium Chloride (Ns Flush) 2 ml IV.FLUSH BID JUNG Sodium Chloride (Ns Flush) 2 ml IV.FLUSH PRN PRN PRN Reason: FLUSH AFTER USING IV ACCESS Allergies Allergy/AdvReac Type Severity Reaction Status Date / Time ciprofloxacin Allergy Intermediate muscle Verified 04/14/18 09:43 weakness penicillin G Allergy muscle Verified 04/14/18 09:43 weakness meperidine AdvReac Severe Hallucinati Verified 04/14/18 09:43 ons Home Medications Medication Instructions Recorded Confirmed Type No Known Home Medications 04/14/18 04/14/18 History Exam Vital signs: Vital Signs 04/14/18 01:31 04/14/18 01:37 04/14/18 01:59 Temperature 98.4 F Pulse Rate 87 80 Pulse Rate [Radial] 89 Respiratory Rate 22 23 20 Blood Pressure 156/82 H 142/80 H Blood Pressure [Left Arm] 134/64 Blood Pressure [Right Arm] 156/82 H Pulse Oximetry 97 98 99 04/14/18 02:02 04/14/18 04:28 04/14/18 07:26 Temperature Pulse Rate 89 81 Pulse Rate [Radial] Respiratory Rate 15 Blood Pressure 149/83 H Blood Pressure [Left Arm] Blood Pressure [Right Arm] Pulse Oximetry 97 100 04/14/18 07:57 04/14/18 08:00 04/14/18 08:21 Temperature 98.0 F Pulse Rate 84 Pulse Rate [Radial] Respiratory Rate 18 Blood Pressure 175/88 H Blood Pressure [Left Arm] Blood Pressure [Right Arm] Pulse Oximetry 100 98 04/14/18 08:40 Temperature Pulse Rate Pulse Rate [Radial] Respiratory Rate Blood Pressure Blood Pressure [Left Arm] Blood Pressure [Right Arm] Pulse Oximetry 100 Intake & Output 04/13/18 04/14/18 04/14/18 18:59 06:59 18:59 Weight 70.307 kg 65.529 kg Other: Weight On Admission 65.529 kg - Constitutional no acute distress, thin, chronically ill appearing, cooperative Comments: 72-year-old male who appears older than stated age. - Routine HEENT Exam Head: Present: normocephalic, atraumatic - Routine Neck Exam Present: supple, full ROM - Routine Chest/Breast/Axilla Exam Chest wall: Absent: tenderness - Detailed Chest Wall Exam Chest wall: Present: pectus excavation - Routine Respiratory Exam Present: CTA bilaterally. Absent: rales, rhonchi, stridor, wheezes, crackles - Routine Cardiovascular Exam Present: RRR. Absent: murmur, gallop, rubs - Routine Abdominal Exam Present: soft, normoactive bowel sounds. Absent: tenderness, guarding, firm - Routine Extremities Exam Present: full ROM, pulses intact, normal capillary refill. Absent: edema - Routine Skin Exam Present: intact, dry, warm - Routine Neurological Exam Present: alert, oriented X3, moving all extremities - Routine Psychiatric Exam Present: cooperative, good insight, good judgment. Absent: suicidal ideation Comments: Denies suicidal ideation, states "I just don't want to go on living." - Detailed Psychiatric Exam Mood and affect: Present: flat, tearful Results 04/14/18 01:55 04/14/18 01:55 Cardiac Enzymes 04/14/18 04/14/18 Range/Units 01:55 05:53 CK-MB (CK-2) 1.6 (0.5-3.6) ng/mL Troponin I Less than 0.02 L Less than 0.02 L (0.02-0.05) ng/mL Coagulation 04/14/18 Range/Units 01:55 PT 9.9 (9.8-11.6) sec APTT 24.5 (24.3-30.1) sec CBC 04/14/18 Range/Units 01:55 WBC 8.6 (4.0-11.0) th/mm3 RBC 4.62 (4.50-5.90) mil/mm3 Hgb 14.5 (13.0-17.0) gm/dL Hct 43.6 (39.0-51.0) % Plt Count 310 (150-450) th/mm3 Neut # (Auto) 6.7 (1.8-7.7) th/mm3 Lymph # (Auto) 1.2 (1.0-4.8) th/mm3 Lewis # (Auto) 0.6 (0.0-0.9) th/mm3 Eos # (Auto) 0.0 (0.0-0.4) th/mm3 Baso # (Auto) 0.1 (0.0-0.2) th/mm3 Comprehensive Metabolic Panel 04/14/18 Range/Units 01:55 Sodium 142 (136-145) meq/L Potassium 4.5 (3.5-5.1) meq/L Chloride 111 H (98-107) meq/L Carbon Dioxide 17.9 L (21.0-32.0) meq/L BUN 21 H (7-18) mg/dL Creatinine 2.12 H (0.60-1.30) mg/dL Calcium 9.5 (8.5-10.1) mg/dL Intake and Output 04/13/18 04/14/18 04/14/18 22:59 06:59 14:59 Other: Weight 70.307 kg 65.529 kg Weight On Admission 65.529 kg Patient Weight 04/15/18 06:59 Weight 65.529 kg EKG interpretations - EKG EKG results cardiology: sinus rhythm, normal axis, normal QRS (NSR, normal axis , nonspecific ST T changes) Caprini VTE Risk Assessment Caprini VTE Risk Assessment: Moderate/High Risk (score >= 2) Caprini Risk Assessment Model: Point Value = 1 Point Value = 2 Point Value = 3 Point Value = 5 Age 41-60 Minor surgery BMI > 25 kg/m2 Swollen legs Varicose veins or History of unexplained or recurrent spontaneous Oral contraceptives or hormone replacement Sepsis (< 1 month) Serious lung disease, including pneumonia (< 1 month) Abnormal pulmonary function Acute myocardial infarction Congestive heart failure (< 1 month) History of inflammatory bowel disease Medical patient at bed rest Age 61-74 Arthroscopic surgery Major open surgery (> 45 min) Laparoscopic surgery (> 45 min) Malignancy Confined to bed (> 72 hours) Immobilizing plaster cast Central venous access Age >= 75 History of VTE Family history of VTE Factor V Leiden Prothrombin [id number] Lupus anticoagulant Anticardiolipin antibodies Elevated serum homocysteine Heparin-induced thrombocytopenia Other congenital or acquired thrombophilia Stroke (< 1 month) Elective arthroplasty Hip, pelvis, or leg fracture Acute spinal cord injury (< 1 month) Prophylaxis Regimen: Total Risk Factor Score Risk Level Prophylaxis Regimen 0-1 Low Early ambulation 2 Moderate Order ONE of the following: *Sequential Compression Device (SCD) *Heparin 5000 units SQ BID 3-4 Higher Order ONE of the following medications: *Heparin 5000 units SQ TID *Enoxaparin/Lovenox 40 mg SQ daily (WT < 150 kg, CrCl > 30 mL/min) *Enoxaparin/Lovenox 30 mg SQ daily (WT < 150 kg, CrCl > 10-29 mL/min) *Enoxaparin/Lovenox 30 mg SQ BID (WT < 150 kg, CrCl > 30 mL/min) AND/OR *Sequential Compression Device (SCD) 5 or more Highest Order ONE of the following medications: *Heparin 5000 units SQ TID (Preferred with Epidurals) *Enoxaparin/Lovenox 40 mg SQ daily (WT < 150 kg, CrCl > 30 mL/min) *Enoxaparin/Lovenox 30 mg SQ daily (WT < 150 kg, CrCl > 10-29 mL/min) *Enoxaparin/Lovenox 30 mg SQ BID (WT < 150 kg, CrCl > 30 mL/min) AND *Sequential Compression Device (SCD) Assessment and Plan - Assessment (1) Chest pain of unknown etiology Code(s): R07.89 - Other chest pain Status: Acute Plan: Admitted to chest pain center. ACS ruled out with 3 sets of EKGs and cardiac enzymes. Monitor on telemetry overnight. Seen evaluated by Dr. Layo Villatoro. Proceed with chemical stress test this morning. If unremarkable, plans to be discharged home with follow-up with PCP. H&P: Quality - VTE Deep Vein Thrombosis/Pulmonary Embolism Present on Admission: No
[2018-04-14 09:52] LABS: Creatine Kinase 91 U/L (39-308)
--- NOTE | 2018-04-14 11:31 | P.PNCA ---
Subjective Interval history: I certify that the inpatient services were ordered in accordance with Medicare regulations governing the order. This includes certification that hospital inpatient services are reasonable and necessary and in the case of services not specified as inpatient-only under 42 CFR 419.22(n), that they are appropriately provided as inpatient services in accordance to with the 2-midnight benchmark under 43 CFR 412.3(e) Patient was seen and examined personally after review with the nurse practitioner patient's history is as documented Pertinent information includes a possible diagnosis of Marfan syndrome at age 16 but with no further documentation and a psych history associated with this statement currently that "I do not want to go on living" Patient's current situation is precipitated by being evicted from his lodging after having paid rent which exhausts his disability check. At this point he has no place to go and is very tearful and depressed. Physical Exam Vital signs: Vital Signs 04/14/18 01:31 04/14/18 01:37 04/14/18 01:59 Temperature 98.4 F Pulse Rate 87 80 Pulse Rate [Radial] 89 Respiratory Rate 22 23 20 Blood Pressure 156/82 H 142/80 H Blood Pressure [Left Arm] 134/64 Blood Pressure [Right Arm] 156/82 H Pulse Oximetry 97 98 99 04/14/18 02:02 04/14/18 04:28 04/14/18 07:26 Temperature Pulse Rate 89 81 Pulse Rate [Radial] Respiratory Rate 15 Blood Pressure 149/83 H Blood Pressure [Left Arm] Blood Pressure [Right Arm] Pulse Oximetry 97 100 04/14/18 07:57 04/14/18 08:00 04/14/18 08:21 Temperature 98.0 F Pulse Rate 84 Pulse Rate [Radial] Respiratory Rate 18 Blood Pressure 175/88 H Blood Pressure [Left Arm] Blood Pressure [Right Arm] Pulse Oximetry 100 98 04/14/18 08:40 Temperature Pulse Rate Pulse Rate [Radial] Respiratory Rate Blood Pressure Blood Pressure [Left Arm] Blood Pressure [Right Arm] Pulse Oximetry 100 Intake & Output 04/13/18 04/14/18 04/14/18 18:59 06:59 18:59 Intake Total 1000 / 1000 Balance 1000 / 1000 Weight 70.307 kg 65.529 kg Intake: IV 1000 / 1000 NS Inj 1,000 ML @ Wide Open IV. 1000 / 1000 SIG BOLUS ONE Rx#:[id number] Other: # Voids 2 # Bowel Movements 1 Weight On Admission 65.529 kg Narrative: The tall thin patient who fits a marfanoid image In his youth he stood 6 foot 2 but is currently down to less than 6 feet. His height to reach ratio is not measured but does appear to be disproportionate Head normocephalic atraumatic Eyes pupils are equal respond to direct and consensual stimulation with light extraocular movements are intact and there is no irododiadochokinesis and no corneal abnormalities suggesting Marfan's Mouth mucous membranes are moist tongue well papillated upper and lower plates are in place there are no lesions and there is no high arched palate as would be expected in Marfan Neck is supple no JVD masses nodes or bruits the basis of the carotid arteries do not appear to be dilated Chest reveals pectus carinatum but breath sounds are intact bilaterally with no rales wheezes or rhonchi Cardiovascular PMI appears to be somewhat vertical the rhythm is regular S1-S2 are audible there is a soft 1/6 systolic murmur but no diastolic murmurs appreciated Abdomen is soft nontender no guarding or rebound Extremities are long and thin upper extremity showing arachnodactyly. Patient' s joints are somewhat flexible but not truly "double jointed" Psychiatrically the patient is clearly depressed tearful in expresses some suicidal ideation Assessment and Plan - Assessment (1) Chest pain of unknown etiology Code(s): R07.89 - Other chest pain Status: Acute Plan: Admitted to chest pain center. ACS ruled out with 3 sets of EKGs and cardiac enzymes. Monitor on telemetry overnight. Seen evaluated by Dr. Layo Villatoro. Proceed with chemical stress test this morning. If unremarkable, plans to be discharged home with follow-up with PCP. - Plan Patient has ruled out for ACS using chest pain center protocol Further testing will be obtained with the [facility] Psychiatric consultation will be obtained as well
[2018-04-14] MEDS ORDERED: Regadenoson Inj 0.4 MG/5 ML Syringe IV.PUSH ONE (12:20)
--- NOTE | 2018-04-14 14:15 | CT ---
EXAM DATE: 04/14/2018 2:05 PM EDT AGE/SEX: 62 years / Male INDICATIONS: Bilateral chest pain and tightness. CLINICAL DATA: This is the patient's initial encounter. Patient reports that signs and symptoms have been present for 1 day and indicates a pain score of 4/10. MEDICAL/SURGICAL HISTORY: Chronic obstructive pulmonary disease. Deep venous thrombosis. Marfan Sy ndrome. None. RADIATION DOSE: 4.99 CTDI (mGy) COMPARISON: No prior exams available for comparison. TECHNIQUE: Multiple contiguous axial images were obtained through the chest without contrast. Image s were obtained in suspended respiration using multiple row detector helical technique. Using automa rajendra exposure control and adjustment of the mA and/or kV according to patient size, radiation dose was kept as low as reasonably achievable to obtain optimal diagnostic quality images. DICOM format imag e data is available electronically for review and comparison. FINDINGS: There is a tiny nodule in the left upper lobe measuring no more than 2 mm. No pleural effusions are i dentified. Calcified granuloma is present in the right lung. There is parenchymal scarring on the ri ght. Examination of the mediastinum demonstrates no abnormally enlarged lymph nodes by CT criteria. No axi llary or hilar abnormalities are identified. Coronary artery calcifications are present. The aortic r oot measures 3.9 cm. No mediastinal hematoma is seen. A small hiatal hernia is present. The adrenal glands are unremarkable. Bilateral renal stones are present the largest measuring 5 mm. There is a small atrophic left kidney present. Scoliosis is present at the thoracolumbar junction. CONCLUSION: Negative CT scan of the thorax without contrast hiatal hernia Nephrolithiasis Electronically signed by: Ashu Luong MD 04/14/2018 2:13 PM EDT
--- NOTE | 2018-04-14 14:16 | NM ---
EXAM DATE: 04/14/2018 1:36 PM EDT AGE/SEX: 62 years / Male INDICATIONS:Angina. . Chest pain. CLINICAL DATA: This is the patient's initial encounter. Patient reports that signs and symptoms have been present for 1 day and indicates a pain score of 2/10. MEDICAL/SURGICAL HISTORY: Chronic obstructive pulmonary disease. None. COMPARISON: No prior exams available for comparison. DOSE: 8.2 mCi Tc 99m Myoview at stress 25.9 mCi [id number] at stress 0.4 mg Lexiscan STRESS SYMPTOMS: None. EJECTION FRACTION: 65 % TECHNIQUE: The patient underwent pharmacologic stress with infusion of prescribed dose. Continuous ECG tracing was monitored during stress. Gated SPECT imaging was performed after stress and conventi onal SPECT imaging was performed at rest. The examination was performed on a SPECT/CT scanner, both attenuation and non-corrected datasets were reviewed. FINDINGS: Distribution: The maximum perfused segment at stress is in the inferior wall. Perfusion Study: The pattern of perfusion at stress is within normal limits. Gated Study: There are intact wall motion and wall thickening without hypokinetic or dyskinetic segm ents. The ejection fraction is calculated at 65%. RISK CATEGORY: Low (<1% Annual Motality Rate) CONCLUSION: Unremarkable myocardial perfusion scan. Electronically signed by: Ashu Luong MD 04/14/2018 2:15 PM EDT
--- NOTE | 2018-04-14 16:28 | P.CONPSY ---
Provisional Diagnosis Admission Date: April 14, 2018 04:11 [place] I.: Adjustment disorder with mixed disturbances of emotion and conduct History of Present Illness Consult date: 04/14/18 Reason for Consult: Assessment Primary Care Provider: No Primary Care Physician Family Provider: No Primary Care Physician Chief Complaint: Chest pain History of Present Illness: Patient is a 62-year-old white male initially brought to [facility] complaints of chest pain and exhaustion. He is in the process of being medically cleared. He also has just been evicted from his apartment and is homeless. Patient is a thin gaunt male he is alert he is oriented with me though is stating he is involved increased suicidal ideation to the point where he would take the suicide pill. There is a hopelessness and helplessness with them. He has no support group. He denies alcohol or drug use. States he has been sober for 25 years. At this time feel patient does meet criteria for brief observation on the psychiatric unit I feel he does have capacity to sign voluntary. I have talked with the psychiatric charge nurse will be a bed available on 4 E. the patient medically cleared in the near future. We will also start him on Zoloft 25 mg daily Review of Systems Please see med surge assessments PMFSH - History History Provided By: Patient - Medical History Medical History: Medical History (Last Updated 04/14/18 @ 01:57 by Paresh Hughes) Blood clot in vein COPD (chronic obstructive pulmonary disease) Chest pain Marfan syndrome - Tobacco History Second Hand Smoke Exposure: No (pt quit yrs ago) Tobacco Use In Past 30 Days: No Smoking Status: Former smoker Tobacco Type: Cigarettes - Alcohol History How Often Do You Have a Drink Containing Alcohol: Never - Substance Use History Substance History: Past History - Travel History Recent Travel in the [place] Within the Last 8 Weeks: No Recent Travel Out of the Country Within the Last 8 Weeks: No - Immunization History Tetanus Immunization: >5 Years Hx Influenza Vaccine This Season: No Medications and Allergies Active Medications: Active Medications Acetaminophen (Tylenol) 500 mg PO Q4H PRN PRN Reason: HEADACHE Nitroglycerin (Nitrostat Sl) 0.4 mg SL Q5M PRN PRN Reason: CHEST PAIN Sodium Chloride (Ns Flush) 2 ml IV.FLUSH BID JUNG Last Admin: 04/14/18 09:24 Dose: 2 ml Sodium Chloride (Ns Flush) 2 ml IV.FLUSH PRN PRN PRN Reason: FLUSH AFTER USING IV ACCESS Allergies Allergy/AdvReac Type Severity Reaction Status Date / Time ciprofloxacin Allergy Intermediate muscle Verified 04/14/18 09:43 weakness penicillin G Allergy muscle Verified 04/14/18 09:43 weakness meperidine AdvReac Severe Hallucinati Verified 04/14/18 09:43 ons Home Medications Medication Instructions Recorded Confirmed Type No Known Home Medications 04/14/18 04/14/18 History Exam Vital signs: Vital Signs 04/14/18 01:31 04/14/18 01:37 04/14/18 01:59 Temperature 98.4 F Pulse Rate 87 80 Pulse Rate [Radial] 89 Respiratory Rate 22 23 20 Blood Pressure 156/82 H 142/80 H Blood Pressure [Left Arm] 134/64 Blood Pressure [Right Arm] 156/82 H Pulse Oximetry 97 98 99 04/14/18 02:02 04/14/18 04:28 04/14/18 07:26 Temperature Pulse Rate 89 81 Pulse Rate [Radial] Respiratory Rate 15 Blood Pressure 149/83 H Blood Pressure [Left Arm] Blood Pressure [Right Arm] Pulse Oximetry 97 100 04/14/18 07:57 04/14/18 08:00 04/14/18 08:21 Temperature 98.0 F Pulse Rate 84 Pulse Rate [Radial] Respiratory Rate 18 Blood Pressure 175/88 H Blood Pressure [Left Arm] Blood Pressure [Right Arm] Pulse Oximetry 100 98 04/14/18 08:40 04/14/18 11:46 Temperature 98.4 F Pulse Rate 82 Pulse Rate [Radial] Respiratory Rate Blood Pressure 157/78 H Blood Pressure [Left Arm] Blood Pressure [Right Arm] Pulse Oximetry 100 98 Intake & Output 04/13/18 04/14/18 04/14/18 18:59 06:59 18:59 Intake Total 1000 / 1000 Balance 1000 / 1000 Weight 70.307 kg 65.529 kg Intake: IV 1000 / 1000 NS Inj 1,000 ML @ Wide Open IV. 1000 / 1000 SIG BOLUS ONE Rx#:[id number] Other: # Voids 2 # Bowel Movements 1 Weight On Admission 65.529 kg Mental Status Examination Appearance: Disheveled Consciousness: Alert Orientation: Person, Place, Date/Time, Situation Motor Activity: Other (Patient laying in bed) Speech: Rapid, Hesitant Language: Adequate Fund of Knowledge: Adequate Attention and Concentration: Other (Fair) Memory: Impaired Mood: Sad Affect: Other (Slight increased range and intensity) Thought Process & Associations: Intact Thought Content: Appropriate Hallucination Type: None Delusion Type: None Suicidal Ideation: Yes Suicidal Plan: Yes (He would take the suicide pill) Suicidal Intention: Yes (He would take the suicide pill) Homicidal Ideation: No Homicidal Plan: No Homicidal Intention: No Insight: Adequate Judgment: Adequate Assessment and Plan - Plan Plan: Estimated LOS: [] days Patient meets criteria for brief inpatient psychiatric stay we will admit the patient to 4 E. when she is medically cleared we will start the patient on Zoloft. Hopeless be short stay we can also work to help this patient find an appropriate placement Justification for Continued Inpatient Stay: At this time patient would decompensate a place to a lower level of care Discharge Planning: To be determined Request Healthcare Surrogate/Guardian Advocate?: No
--- NOTE | 2018-04-16 12:24 | ECG ---
Date Performed: 04/14/2018 Time Performed: 08:45:57 PTAGE: 62 years EKG: Sinus rhythm WITH OCCASIONAL ECTOPIC PREMATURE COMPLEXES NONSPECIFIC T-WAVE ABNORMALITY BORDERLINE ECG NO PREVIOUS TRACING DOCTOR: Alysa Hadley Interpretating Date/Time 04/16/2018 12:11:33
--- NOTE | 2018-04-16 17:47 | TR ---
Date Performed: 04/14/2018 Time Performed: 12:31:43 DOCTOR: Layo Villatoro DRUG LIST: CLINICAL HISTORY: REASON FOR TEST: REASON FOR ENDING: OBSERVATION: CONCLUSION: Lexiscan stress test was performed under standard four minute protocol. Radionuclide was injected one minute prior to ending the test. Mild NSSTT changes were noted but no electrocardio graphic abormalities were present to that were diagnostic of ischemia. Nuclear imaging and interpreta tion are pending. COMMENTS:
== END 2018-04-14 18:00 | disposition short-term general hospital (02) ==
LOC: NEPC 01:21 → NEDA 01:21 → NEPFCDU 01:21 → NEDA 06:32 → NEPFCDU 15:10 → UNDODISOB 18:37 → NEPFCDU 04-17 19:34
PROVIDERS: ADMIT Internal Medicine Cardiovascular Disease; ATTEND Internal Medicine Cardiovascular Disease
DX: R45.851 Suicidal ideations; Z87.891 Personal history of nicotine dependence; F32.9 Major depressive disorder, single episode, unspecified; Q67.7 Pectus carinatum; K21.9 Gastro-esophageal reflux disease without esophagitis; N20.0 Calculus of kidney; K44.9 Diaphragmatic hernia without obstruction or gangrene; J45.909 Unspecified asthma, uncomplicated; Q87.40 Marfan syndrome, unspecified; R07.89 Other chest pain; J44.9 Chronic obstructive pulmonary disease, unspecified; Z59.0 Homelessness; F41.9 Anxiety disorder, unspecified; R11.0 Nausea; F43.22 Adjustment disorder with anxiety

== ENCOUNTER 2018-04-15 10:00 | Inpatient (IN) ==
[2018-04-15] MEDS ORDERED: Acetaminophen 325 MG Tablet PO PRN (17:42)
[2018-04-15] MEDS ORDERED: Aluminum/Magnesium/Simethacone Susp 30 ML UDC PO PRN (17:42)
[2018-04-15] MEDS ORDERED: QUEtiapine 100 MG Tablet PO SCH (21:00)
[2018-04-16] MEDS ORDERED: Aluminum/Magnesium/Simethacone Susp 30 ML UDC PO PRN (11:16)
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
[2018-04-16 12:59] LABS: Calcium 8.8 mg/dL (8.5-10.1); Carbon Dioxide 21.7 meq/L (21.0-32.0); Potassium 4.4 meq/L (3.5-5.1)
[2018-04-16 13:03] LABS: Chol/HDL Ratio 8.4 Ratio; HDL Cholesterol 35.1 mg/dL (40.0-60.0)
--- NOTE | 2018-04-16 13:37 | P.CON ---
History of Present Illness Primary Care Provider: No Primary Care Physician History of Present Illness: 61-year-old white male with h/o CKD , Marfans syndrome, right inguinal hernia ,h/o pyelo and E coli bacteremia in 2017 The hospitalist is consulted for evaluation of chest pain, The patient was seen in the chest pain center had serial enzymes negative and also neg stress test, Patient also has a h/o GERD. He denies chest ain at this time. However when he is anxious he is experiencing sob and CP. Denies associated diaphoresis, palpitations, lightheadedness. Denies nausea vomiting No abdominal pain. No urinary complaints. No other complaints. Review of Systems All other systems reviewed negative except as stated in HPI PMFSH - History History Provided By: Patient - Medical History Medical History: Medical History (Last Reviewed 04/17/18 @ 02:46 by Sandra Thrasher MD) Blood clot in vein COPD (chronic obstructive pulmonary disease) Chest pain Marfan syndrome - Family History Family History: Family History (Last Updated 04/17/18 @ 02:46 by Sandra Thrasher MD) Other Heart problem - Tobacco History Tobacco Use In Past 30 Days: No Medications and Allergies Active Medications: Active Medications Acetaminophen (Tylenol) 650 mg PO Q4H PRN PRN Reason: PAIN 1-5 OR TEMP > 101 F Al Hydrox/Mg Hydrox/Simethicone (Mag-Al Plus Susp Liq) 30 ml PO Q6H PRN PRN Reason: DYSPEPSIA Al Hydroxide/Mg Hydroxide (Milk Of Magnesia Liq) 30 ml PO DAILY PRN PRN Reason: CONSTIPATION Hydroxyzine HCl (Atarax) 25 mg PO Q6H PRN PRN Reason: ANXIETY Melatonin (Melatonin) 5 mg PO HS PRN PRN Reason: INSOMNIA Miscellaneous (Pill Splitter) 0 each OTHER UNSCH PRN PRN Reason: PILL SPIT Quetiapine Fumarate (Seroquel) 200 mg PO HS JUNG Allergies Allergy/AdvReac Type Severity Reaction Status Date / Time ciprofloxacin Allergy Intermediate muscle Verified 04/14/18 09:43 weakness penicillin G Allergy muscle Verified 04/14/18 09:43 weakness meperidine AdvReac Severe Hallucinati Verified 04/14/18 09:43 ons Home Medications Medication Instructions Recorded Confirmed Type No Known Home Medications 04/14/18 04/14/18 History Physical Exam Vital signs: Vital Signs 04/15/18 18:05 04/16/18 06:00 Temperature 98.4 F 98.5 F Pulse Rate 68 88 Respiratory Rate 17 16 Blood Pressure 137/83 113/62 Pulse Oximetry 96 94 L Intake & Output 04/15/18 04/16/18 04/16/18 18:59 06:59 18:59 Intake Total 1080 / 1080 340 / 340 600 / 600 Balance 1080 / 1080 340 / 340 600 / 600 Weight 59.4 kg Intake: Oral 1080 / 1080 240 / 240 600 / 600 Oral Supplement 100 / 100 Other: # Voids 3 1 Weight On Admission 62.8 kg Narrative: GENERAL: Patient is in nad. SKIN: Warm and dry. HEAD: Atraumatic. Normocephalic. EYES: Pupils equal and round. No scleral icterus. No injection or drainage. ENT: No nasal bleeding or discharge. Mucous membranes pink and moist. NECK: Trachea midline. No JVD. CARDIOVASCULAR: Pectus carinatum. Regular rate and rhythm. RESPIRATORY: No accessory muscle use. Clear to auscultation. Breath sounds equal bilaterally. GASTROINTESTINAL: Abdomen soft, non-tender, nondistended. Hepatic and splenic margins not palpable. MUSCULOSKELETAL: Extremities without clubbing, cyanosis, or edema. No obvious deformities. NEUROLOGICAL: Awake and alert. No obvious cranial nerve deficits. Motor grossly within normal limits. Five out of 5 muscle strength in the arms and legs. Normal speech. PSYCHIATRIC: Appropriate mood and affect; insight and judgment normal. Assessment and Plan - Plan Bipolar disorder- management per psych Chest pain was seen at the chest pain center CE neg , and also neg stress test. Patientis asymptomatic at this time. No chest ain. Treat underlying anxiety. Note patient also has Marfans GERD start famotidine Constipation - laxativs as need Chronic renal insufficiency- stable- DVT ppx ambulation Stable medically , the ospitalist will sign off. Thank you for this consultation
[2018-04-16 16:00] LABS: Hemoglobin A1c 5.4 % (4.3-6.0)
[2018-04-16] MEDS ORDERED: Melatonin 5 MG Tablet PO PRN (21:00)
--- NOTE | 2018-04-17 11:56 | P.PNPSY ---
Subjective Chief Complaint: Depression, SI Remarks: Patient seen and examined. Chart reviewed. Case discussed with nursing staff. No behavioral issues noted overnight. Case discussed in treatment team. Case discussed with counselor who reports that patient was visited by a industrial sales representative from [facility] and reportedly seems like a good fit for that facility. A bed might be available tomorrow or perhaps . On my examination today, the patient continues to complain of some low mood although he does not verbalize any suicidal ideation. He says that he has "lost a lot" and says "I got adjusting to do." No psychotic symptoms. No side effects from medications. We discussed titrating Seroquel for additional mood stabilization , and the patient prefers to add a daytime dose instead of titrating the nighttime dose. No physical complaints. Vital Signs Temp Pulse Resp BP Pulse Ox 04/17/18 05:43 97.6 F 85 19 116/62 97 04/16/18 18:06 98.8 F 80 18 106/57 L 94 L Intake and Output 04/17/18 04/17/18 04/17/18 06:59 14:59 22:59 Intake Total 240 / 240 Output Total Balance 239 / 239 Intake: Oral 240 / 240 Output: Urine Labs reviewed. BMP reveals interval improvement in GFR. Review of Systems All other systems reviewed negative except as stated in HPI Mental Status Examination Appearance: Appropriate Consciousness: Alert Orientation: x4 Motor Activity: Normal gait, Other (No motor abnormalities noted) Speech: Unremarkable Language: Adequate Fund of Knowledge: Adequate Attention and Concentration: Adequate Memory: Unremarkable (Grossly intact on clinical exam) Mood: Sad (Improving) Affect: Appropriate Thought Process & Associations: Intact, Logical, Linear Thought Content: Appropriate Hallucination Type: None Delusion Type: None Suicidal Ideation: No Suicidal Plan: No Suicidal Intention: No Homicidal Ideation: No Homicidal Plan: No Homicidal Intention: No Insight: Fair Judgment: Impulsive Assessment and Plan - Assessment (1) Adjustment disorder with depressed mood Code(s): F43.21 - Adjustment disorder with depressed mood Status: Acute - Plan Plan: Add daytime dose of Seroquel 50 mg and continue with Seroquel 200 mg at bedtime for mood stabilization. Hospitalist input noted and appreciated. Continue to monitor on inpatient unit. Continue other medications and care as ordered. Justification for Continued Inpatient Stay: Medication changes. Risk for decompensation in less restrictive environment. Discharge Planning: Possible discharge to [facility] tomorrow versus . Request Healthcare Surrogate/Guardian Advocate?: No
[2018-04-17] MEDS: QUEtiapine 25 MG Tablet PO SCH (12:24)
[2018-04-17] MEDS: Famotidine 20 MG Tablet PO SCH (21:08)
[2018-04-18] MEDS: QUEtiapine 25 MG Tablet PO SCH (08:52)
--- NOTE | 2018-04-18 14:00 | P.PNPSY ---
Subjective Chief Complaint: Depression, SI Remarks: Patient seen and examined with nurse. Chart reviewed. Case discussed with nursing staff. Nurse notes that patient was somewhat more dysphoric and tearful today and told her that he wanted to take some pills and not wake up. Main stressor is apparently loss of his cat. On my examination today, the patient says that his mood is "about the same, maybe a little bit better." He denies any active urge to self injure but does make a passing remark about taking medications in order not to wake up only if some consequence-free mechanism could be arranged. Patient has previously said that he would not try to kill himself because he does not want to go to Hell. No side effects from medications. Complains of some diarrhea, no bloody stool. No other physical complaints. Vital Signs Temp Pulse Resp BP Pulse Ox 04/18/18 06:00 98.1 F 74 17 123/65 98 04/17/18 18:29 98.0 F 87 18 124/74 97 04/17/18 18:00 79 16 120/56 L 96 Intake and Output 04/17/18 04/18/18 04/18/18 22:59 06:59 14:59 Intake Total 360 / 360 Balance 360 / 360 Intake: Oral 360 / 360 Labs reviewed. No new labs. Review of Systems All other systems reviewed negative except as stated in HPI Mental Status Examination Appearance: Appropriate Consciousness: Alert Orientation: x4 Motor Activity: Other (No abnormal motor movements noted) Speech: Unremarkable Language: Adequate Fund of Knowledge: Adequate Attention and Concentration: Adequate Memory: Unremarkable (Grossly intact on clinical exam) Mood: Sad Affect: Blunt Thought Process & Associations: Intact, Logical, Linear Thought Content: Appropriate Hallucination Type: None Delusion Type: None Suicidal Ideation: Yes (Vague) Suicidal Plan: No Suicidal Intention: No Homicidal Ideation: No Homicidal Plan: No Homicidal Intention: No Insight: Fair Judgment: Impulsive Assessment and Plan - Assessment (1) Adjustment disorder with depressed mood Code(s): F43.21 - Adjustment disorder with depressed mood Status: Acute - Plan Plan: Titrate Seroquel to 100 mg in the morning and 200 mg at bedtime for mood stabilization. Check C. difficile PCR and also check an updated CBC and CMP given complaints of diarrhea. I will also consult the hospitalist for this complaint. Continue to monitor on the inpatient unit. Continue other medications and care as ordered. Justification for Continued Inpatient Stay: Medication changes. Monitoring for impairment in safety. Possible complicating condition. Discharge Planning: Hopeful for discharge before the weekend, likely to [facility]. Request Healthcare Surrogate/Guardian Advocate?: No
[2018-04-18] MEDS ORDERED: QUEtiapine 25 MG Tablet PO PRN (14:14)
--- NOTE | 2018-04-18 15:15 | P.PN ---
Physical Exam Vital signs: Vital Signs 04/17/18 18:00 04/17/18 18:29 04/18/18 06:00 Temperature 98.0 F 98.1 F Pulse Rate 79 87 74 Respiratory Rate 16 18 17 Blood Pressure 120/56 L 124/74 123/65 Pulse Oximetry 96 97 98 Intake & Output 04/17/18 04/18/18 04/18/18 18:59 06:59 18:59 Intake Total 360 / 360 Balance 360 / 360 Intake: Oral 360 / 360 Narrative: Subjective: Reconsulted for c/o diarrhea The patient complaints of diarrhea , no fever or chills. No abd cramps. No n/v. Tolerates food. Encourage po hydration Physical exam: GENERAL: Patient is in nad. CARDIOVASCULAR: Pectus carinatum. Regular rate and rhythm. RESPIRATORY: No accessory muscle use. Clear to auscultation. Breath sounds equal bilaterally. GASTROINTESTINAL: Abdomen soft, non-tender, nondistended. Hepatic and splenic margins not palpable. MUSCULOSKELETAL: Extremities without clubbing, cyanosis, or edema. No obvious deformities. NEUROLOGICAL: Awake and alert. No obvious cranial nerve deficits. Motor grossly within normal limits. Five out of 5 muscle strength in the arms and legs. Normal speech. PSYCHIATRIC: Appropriate mood and affect; insight and judgment normal. Assessment and Plan Bipolar disorder- management per psych Diarrhea: check C diff is neg. Start lactinex and immodium prn. Encourage PO hydration. Chest pain was seen at the chest pain center CE neg , and also neg stress test. Patient is asymptomatic at this time. No chest ain. Treat underlying anxiety. Note patient also has Marfans GERD start famotidine Constipation - laxativs as need Chronic renal insufficiency- stable- DVT ppx ambulation Appears medically stable. Results - Labs CBC & Chem 7: 04/18/18 18:52 04/18/18 18:52 Assessment and Plan - Plan Bipolar disorder- management per psych Chest pain was seen at the chest pain center CE neg , and also neg stress test. Patientis asymptomatic at this time. No chest ain. Treat underlying anxiety. Note patient also has Marfans GERD start famotidine Constipation - laxativs as need Chronic renal insufficiency- stable- DVT ppx ambulation Stable medically , the ospitalist will sign off. Thank you for this consultation
[2018-04-18] MEDS ORDERED: Loperamide 2 MG Capsule PO PRN (15:35)
[2018-04-18 19:28] LABS: Baso # (Auto) 0.1 th/mm3 (0.0-0.2); Baso % (Auto) 0.8 % (0.0-2.0); Eos # (Auto) 0.2 th/mm3 (0.0-0.4); Hemoglobin 12.7 gm/dL (13.0-17.0); Lymph # (Auto) 1.3 th/mm3 (1.0-4.8); Lymph % (Auto) 16.6 % (9.0-44.0); Mean Corpuscular HGB Conc 34.4 % (32.0-36.0); Mean Corpuscular Hemoglobin 32.6 pg (27.0-34.0); Mean Corpuscular Volume 94.8 fL (80.0-100.0); Mono # (Auto) 0.6 th/mm3 (0.0-0.9); Mono % (Auto) 7.9 % (0.0-8.0); Neut # (Auto) 5.6 th/mm3 (1.8-7.7); Neut % (Auto) 72.7 % (16.0-70.0); Platelet Count 281 th/mm3 (150-450); Red Cell Distribution Width 13.2 % (11.6-17.2); White Blood Count 7.8 th/mm3 (4.0-11.0)
[2018-04-18 19:57] LABS: Albumin 3.4 g/dL (3.4-5.0); Anion Gap 9 meq/L (5-15); Aspartate Aminotransferase 20 U/L (15-37); Blood Urea Nitrogen 31 mg/dL (7-18); Calcium 8.8 mg/dL (8.5-10.1); Carbon Dioxide 24.7 meq/L (21.0-32.0); Chloride 107 meq/L (98-107); Glomerular Filtration Rate 40 mL/min (>89); Glucose,Random 94 mg/dL (74-106); Potassium 4.2 meq/L (3.5-5.1); Sodium 141 meq/L (136-145)
[2018-04-18 20:00] LABS: Alanine Aminotransferase 22 U/L (12-78); Alkaline Phosphatase 68 U/L (45-117); Total Protein 6.4 g/dL (6.4-8.2)
[2018-04-18] MEDS: Lactobacillus Acidophilus/L. Spores Tablet PO SCH (20:14)
[2018-04-18] MEDS: Famotidine 20 MG Tablet PO SCH (20:30)
[2018-04-19 06:21] VITALS: RESP 16
[2018-04-19] MEDS: Lactobacillus Acidophilus/L. Spores Tablet PO SCH ×2 (08:26→21:30)
[2018-04-19] MEDS: QUEtiapine 100 MG Tablet PO SCH (08:26)
--- NOTE | 2018-04-19 13:38 | P.PNPSY ---
Subjective Chief Complaint: Depression, SI Remarks: Patient seen and examined with nurse. Chart reviewed. Case discussed with nursing staff. Case discussed with counselor who reports that patient does have a bed at [facility] as early as today. On my examination today, patient reports that he is feeling anxious. He continues to verbalize vague SI , saying it he could "flip a coin" with regards to desire to . He endorses hopeless feelings. No psychotic symptoms. No side effects from medications. Patient continues to complain of "diarrhea" but nurse reports that patient is having formed stool, just somewhat soft. C. difficile was negative. No other physical complaints. Vital Signs Temp Pulse Resp BP Pulse Ox 04/19/18 06:00 98.1 F 85 16 134/72 98 04/18/18 17:25 98.4 F 83 18 143/76 H 99 Intake and Output 04/18/18 04/19/18 04/19/18 22:59 06:59 14:59 Other: Weight 60.5 kg Laboratory Results - last 24 hr 04/18/18 04/18/18 04/18/18 14:40 18:52 18:52 WBC 7.8 RBC 3.90 L Hgb 12.7 L Hct 37.0 L MCV 94.8 MCH 32.6 MCHC 34.4 RDW 13.2 Plt Count 281 MPV 8.0 Neut % (Auto) 72.7 H Lymph % (Auto) 16.6 Saunders % (Auto) 7.9 Eos % (Auto) 2.0 Baso % (Auto) 0.8 Neut # (Auto) 5.6 Lymph # (Auto) 1.3 Saunders # (Auto) 0.6 Eos # (Auto) 0.2 Baso # (Auto) 0.1 WBC Differential . Differential Comment Auto diff final Sodium 141 Potassium 4.2 Chloride 107 Carbon Dioxide 24.7 Anion Gap 9 BUN 31 H Creatinine 1.75 H Estimated GFR 40 L Random Glucose 94 Calcium 8.8 Total Bilirubin 0.2 AST 20 ALT 22 Alkaline Phosphatase 68 Total Protein 6.4 Albumin 3.4 Stl C.difficile Tox PCR Negative St C. diff Tox Epid 027 Negative Labs reviewed. Mild normocytic anemia. GFR stable. C. difficile negative. Review of Systems All other systems reviewed negative except as stated in HPI Mental Status Examination Appearance: Appropriate Consciousness: Alert Orientation: x4 Motor Activity: Other (No motoric abnormalities noted) Speech: Unremarkable Language: Adequate Fund of Knowledge: Adequate Attention and Concentration: Adequate Memory: Unremarkable (Grossly intact on clinical exam) Mood: Anxious Affect: Blunt Thought Process & Associations: Intact, Logical, Linear Thought Content: Appropriate Hallucination Type: None Delusion Type: None Suicidal Ideation: Yes (Vague, ongoing) Suicidal Plan: No Suicidal Intention: No Homicidal Ideation: No Homicidal Plan: No Homicidal Intention: No Insight: Fair Judgment: Impulsive Assessment and Plan - Assessment (1) Adjustment disorder with depressed mood Code(s): F43.21 - Adjustment disorder with depressed mood Status: Acute - Plan Plan: Titrate Seroquel to 100 mg in the morning and 250 mg at bedtime for additional mood stabilization. Continue to monitor on inpatient unit. Hospitalist input noted and appreciated. I see that Imodium and probiotic has been added. Continue other medications and care as ordered. Justification for Continued Inpatient Stay: Med change. High risk for decompensation in less restrictive environment. Monitoring for impairment in safety, none noted. Discharge Planning: Anticipate discharge to [facility] tomorrow, Monday Request Healthcare Surrogate/Guardian Advocate?: No
[2018-04-19] MEDS ORDERED: QUEtiapine 100 MG Tablet PO SCH ×2 (15:00→21:00)
[2018-04-19] MEDS: Famotidine 20 MG Tablet PO SCH (21:30)
[2018-04-20 05:47] VITALS: BP 124/68; PULSE 76; TEMP 98; O2SAT 97
[2018-04-20] MEDS: QUEtiapine 100 MG Tablet PO SCH (08:20)
[2018-04-20] MEDS: Lactobacillus Acidophilus/L. Spores Tablet PO SCH (08:20)
--- NOTE | 2018-04-20 11:43 | P.PNPSY ---
Subjective Chief Complaint: Depression, SI Mental Status Examination Appearance: Appropriate Consciousness: Alert Orientation: x4 Motor Activity: Other (No motoric abnormalities noted) Speech: Unremarkable Language: Adequate Fund of Knowledge: Adequate Attention and Concentration: Adequate Memory: Unremarkable (Grossly intact on clinical exam) Mood: Anxious Affect: Blunt Thought Process & Associations: Intact, Logical, Linear Thought Content: Appropriate Hallucination Type: None Delusion Type: None Suicidal Ideation: Yes (Vague, ongoing) Suicidal Plan: No Suicidal Intention: No Homicidal Ideation: No Homicidal Plan: No Homicidal Intention: No Insight: Fair Judgment: Impulsive Assessment and Plan - Assessment (1) Adjustment disorder with depressed mood Code(s): F43.21 - Adjustment disorder with depressed mood Status: Acute - Plan Request Healthcare Surrogate/Guardian Advocate?: No
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
== END 2018-04-20 15:10 | disposition home or self-care (01) ==
LOC: H4EA 10:00 → H260 04-17 17:20
PROVIDERS: ADMIT Psychiatry & Neurology Psychiatry; ATTEND Psychiatry & Neurology Psychiatry
DX: Z86.59 Personal history of other mental and behavioral disorders; R11.0 Nausea; Z87.891 Personal history of nicotine dependence; R07.89 Other chest pain; F31.9 Bipolar disorder, unspecified; R45.851 Suicidal ideations; F41.9 Anxiety disorder, unspecified; F43.22 Adjustment disorder with anxiety; Q87.40 Marfan syndrome, unspecified; Z59.0 Homelessness; J44.9 Chronic obstructive pulmonary disease, unspecified; N20.0 Calculus of kidney; N18.9 Chronic kidney disease, unspecified; K59.00 Constipation, unspecified; K21.9 Gastro-esophageal reflux disease without esophagitis; R19.7 Diarrhea, unspecified; K44.9 Diaphragmatic hernia without obstruction or gangrene; F43.21 Adjustment disorder with depressed mood